=== PATIENT | female | born 1955 | race Caucasian/White ===

== ENCOUNTER 2024-08-17 10:04 | Emergency (ER) | payer BC, MEDICARE, SELFPAY ==
[2024-08-17] VITALS (16 sets, daily range): BP systolic 145–189; BP diastolic 67–120; PULSE 65–105; RESP 14–23; TEMP 36.4–37.2; O2SAT 74–100
--- NOTE | ~2024-08-17 | CT_ITS ---
Non-contrast Head CT History: Head injury Technique: Axial non-contrast imaging of the brain was performed. Dose reduction technique was used on this scan by utilizing automated exposure control and iterative reconstruction technique. The dose -length product (DLP) was 605.33 mGy-cm. Findings: There is acute parenchymal hemorrhage centered at the right thalamus/basal ganglia, with he matoma measuring 3.2 x 2.3 cm in transverse dimensions. There is additional acute intraventricular he morrhage involving the lateral ventricles, third ventricle, and fourth ventricle. No definite signifi cant midline shift evident. Mild prominence of the ventricular system suggests early reactive hydroce phalus. The calvarium appears normal. The visualized paranasal sinuses and mastoid air cells are polly ar. Impression: Acute intraparenchymal hematoma the right thalamus/basal ganglia with additional extensive acute intr aventricular hemorrhage, as detailed above. No definite midline shift. Probable early reactive hydrocephalus. Case discussed with Dr. Pompa at the time of this reading. Reviewed, dictated and finalized at location M. [employer] Impression: Acute intraparenchymal hematoma the right thalamus/basal ganglia with additiona l extensive acute intraventricular hemorrhage, as detailed above. No definite m idline shift. Probable early reactive hydrocephalus. Case discussed with Dr. Pompa at the time of this reading.
--- NOTE | ~2024-08-17 | XR_ITS ---
XR chest 1V portable INDICATION: Flu. Altered mental status. TECHNIQUE: 2 view chest. FINDINGS: No prior studies for comparison. There is mild bilateral interstitial prominence and peribronchial cuffing. There is no focal consoli dation, pleural effusion, or pneumothorax. The cardiomediastinal silhouette is normal. IMPRESSION: 1. Findings most consistent with bronchiolitis versus an atypical or viral pneumonia. Reviewed, dictated and finalized at location B. BER IMPRESSION: 1. Findings most consistent with bronchiolitis versus an atypical or viral pne [facility].
--- NOTE | 2024-08-17 10:06 | ECG_ITS ---
Test Date: 2024-08-17 10:23:25 Measurements Intervals [place] Rate: 65 P: 44 OK: 168 QRS: 26 QRSD: 98 T: 37 QT: 425 QTc: 444 Interpretive Statements SINUS RHYTHM MINIMAL Q WAVES- INFERIOR LEADS BORDERLINE ECG No previous ECG available for comparison Electronically Signed On 08-17-2024 10:27:13 DIRECTOR METABOLISM by Severiano Fragoso D.O.
[2024-08-17 10:35] LABS: Basophils Percent Auto 0.2 % (0.2-1.2); Eosinophils Percent Auto 0.1 % (0-4.4); Hematocrit 40.1 % (37.0-47.0); Immature Granulocyte Absolute 0.02 K/mm3 (0.00-0.031); Immature Granulocyte Percent A 0.2 % (0-0.5); Lymphocytes Absolute Auto 0.94 K/mm3 (0.9-3.2); Lymphocytes Percent Auto 10.2 % (18.3-44.2); Mean Corpuscular HGB Conc 32.4 g/dl (32-36); Mean Corpuscular Hemoglobin 29.3 pg (26-34); Mean Corpuscular Volume 90.5 fl (80-100); Mean Platelet Volume 9.2 fl (7.4-10.4); Monocytes Absolute Auto 0.5 K/mm3 (0.1-0.6); Monocytes Percent Auto 5.7 % (2.6-8.5); Neutrophils Absolute Auto 7.7 K/mm3 (1.3-6.7); Neutrophils Percent Auto 83.6 % (45.5-73.1); Platelet Count Result 315 k/mm3 (150-375); Red Blood Count 4.43 M/mm3 (4.2-5.4); Red Cell Distribution Width 12.4 % (11.5-14.5); White Blood Count 9.3 K/mm3 (4.5-10.0)
[2024-08-17 10:37] LABS: Add Urine Microscopic? NO; Appearance Urine Clear (Clear); Bilirubin Urine Negative (Negative); Blood Urine Negative (Negative); Color Urine Yellow (Yellow); Glucose Urine UA Negative (Negative); Ketones Urine Negative (Negative); Leukocyte Esterase Ur Negative LEU/UL (Negative); Nitrate Urine Negative (Negative); Protein Urine Negative (Negative); Specific Grav Ur 1.015 (1.001-1.035)
--- OUTSIDE RECORDS SUMMARY | 2024-08-17 10:37 | XMS_ITS | Encounter Summary ---
Author Organization [facility] Address [address] [place] [address] Care Team Providers Care Exercise Science Internship Name Role Phone Fani Cotton NP Primary Care Provider Crystal Bryant NP Primary Care Provider Unav ailable None, Provider Primary Care Provider Florentino Matthews MD Primary Care Provider [phone] Encounter Details Date Type Department Care Team (Late st Contact Info) Description 07/16/2019 ThemBid Message Enc [facility] [id number] [place] [address] Fani Cotton, BERNY RE: Test Results Social History Tobacco Use Types Packs/Day Years Used Date Smoking Tobacco: Never Smokeless Tobacco: Never Alcohol Use Standard Drinks/Week Comments No 0 (1 standard drink = 0.6 oz pur e alcohol) AUDIT-C Answer Date Recorded Frequency of Alcohol Consumption Never 05/18/2018 Average Number of Drinks Not on file 018 Frequency of Binge Drinking Not on file 04/29 Overall Financial Resource Strain (CARDIA) Answe r Date Recorded Difficulty of Paying Living Expenses Not hard at all 05/18/2018 Hunger Vital Sign Answer Date Recorded Worried About Running Out of Food in the Last Ye ar Never true 05/18/2018 Ran Out of Food in the Last Year Never true 05/18/2018 PRAPARE - Transportation Answer Date Re corded Lack of Transportation (Medical) No 05/18/2018 Lack of Transportation (Non-Medical) No 05/18/2018 Education Answer Date Recorded What is the highest level of school you have completed or the highest degree you have received? 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 Not on file Not on file Not on file documented as of this encounter Plan of Treatment Not on file documented as of this encounter Visit Diagnoses Not on filedocumented in this encounter Additional Health Concerns Infection Onset Date Last Indicated Resolved Time COVID-19 Rule Out 12/31/2023 12/31/2023 12/31/2023 11:43 AM CDT documented as of this encounter Care Teams Exercise Science Internship Relationship Specialty Start Date End Date Fani Cotton NP PCP - General NURSE PRACTITIONER 05/18/18 03/07/20 Crystal Shannon NP PCP - General NURSE PRACTITIONER 03/08/20 04/06/21 None, ProviderMD PCP - General 11/10/21 04/21/22 Florentino Hood MD PCP - General HOSPITALIST 04/22/22 documented as of this encounter
--- OUTSIDE RECORDS SUMMARY | 2024-08-17 10:37 | XMS_ITS | Clinical Summary ---
Author Organization [facility] Address [address] [place] [address] Care Team Providers Care Grades 1 Thru 6 Home Teacher Name Role Phone Kevon Gaytan MD Unavailable [phone] Anirudh Pena MD Unavailable [phone] Florentino Hood MD Primary Care Provider [phone] Allergies Active Allergy Reactions Criticality Noted Date Comments Amlodipine Swollen tongue High 07/20/2016 Codeine Nausea & Vomiting High 11/20/2008 Fentanyl Anaphylaxis,Shortne ss of breath High 02/22/2014 Pt coded Horseradish Swelling High 02/20/2014 Throat swelling Hydrocodone Other (See comments) Low 06/08/2018 Over sedation Hydromorphone Other (See comments) High 03/09/2014 Decreased breathing Isosorbide Headache Low 06/30/2017 Isosorbide Mononitrate Edema,Hypotension High 2016 Morphine Other (See comments) High 08/07/2013 Over sedation Opioids - Morphine Analogues Other (See comments) High Over sedation Oxycodone Other (See comments) Low 06/11/2016 Over sedation Prochlorperazine Angioedema High Propoxyphene Other (See comments) High 03/09/2014 Over sedation Medications cyanocobalamin (Vitamin B-12) 1,000 mcg sublingual tabletIndicatio ns:Prevention of Vitamin B12 Deficiency [address] 1 tablet (1,000 mcg total) under the tongue every morning 016 Active ergocalciferol (VITAMIN D) 50,000 unit capsule Take 1 capsule (50,000 Units total) by mouth once a week 30 capsule 021 Active levothyroxine (SYNTHROID) 300 mcg tabletIndicatio ns:hypothyroidi sm Take 1 tablet (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 022 Active vitamin D3-vitamin K2 25 mcg (1,000 unit)-90 mcg tablet,disinteg ratingIndicatio ns:Supplement Take 1 tablet by mouth every morning Active budesonide (Pulmicort) 0.5 mg/2 mL nebulizer solution Mix 1 capsule/ampule in 250 ml of saline irrigation (nina med sinus rinse) and irrigate each nostril with half of the bottle twice a day 120 mL 3 Active aspirin 81 mg enteric coated tabletIndicatio ns:Myocardial Reinfarction Prevention Take 1 tablet (81 mg total) by mouth nightly Active losartan (COZAAR) 100 mg tablet Take 0.5 tablets (50 mg total) by mouth daily 2024 Active Additional Information Patient taking differently: 100 mgoralEvery morning, Indications: hypertension, Informant: Self, Reported on 07/24/2024 metoprolol XL (TOPROL-XL) 25 mg extended release tablet Take 2 tablets (50 mg total) by mouth nightly 90 tablet 3 Active Additional Information Patient taking differently: 25 mgoral Nightly, Informant: Self, Reported on 07/24/2024 acetaminophen (TYLENOL) 500 mg tabletIndicatio ns:Back Pain,Pain Take 2 tablets (1,000 mg total) by mouth every 6 (six) hours as needed for pain Active ondansetron (ZOFRAN) 4 mg tabletIndicatio ns:Prevention of Post-Operative Nausea and Vomiting Take 1 tablet (4 mg total) by mouth every 8 (eight) hours as needed for nausea or vomiting for up to 10 doses 10 tablet Active Additional Information Patient not taking.Reported on 07/24/2024 senna (SENOKOT) 8.6 mg tabletIndicatio ns:constipation Take 1 tablet by mouth nightly as needed for constipation for up to 10 doses 10 tablet 024 Active Additional Information Patient not taking.Reported on 07/24/2024 torsemide (DEMADEX) 20 mg tablet Take 1 tablet (20 mg total) by mouth every other day 45 tablet 1 Active nitroglycerin (NITROSTAT) 0.4 mg SL tabletIndicatio ns:Chest pain, unspecified type Take 1 tablet (0.4 mg total) by mouth every 5 (five) minutes as needed for chest pain 25 tablet Active azithromycin (ZITHROMAX) 250 mg tablet Not yet started Active benzonatate (TESSALON) 200 mg capsule as needed Active methylPREDNISol one (MEDROL DOSEPACK) 4 mg Dosepack Not yet started Active evolocumab (Repatha SureClick) 140 mg/mL pen injector Inject 1 mL (140 mg total) under the skin every 2 (two) weeks 6 mL 3 025 Active evolocumab (Repatha SureClick) 140 mg/mL pen injector INJECT 1 ML SUBCUTANEOUSLY EVERY TWO WEEKS 6 mL 1 024 2024 Discontinued(R eorder) evolocumab (Repatha SureClick) 140 mg/mL pen injector Inject 6 mL (840 mg total) under the skin every 2 (two) weeks 6 mL 1 025 2024 Discontinued Active Problems Patient Care Coordination No te Formatting of this note migh t be different from the original. sinus Problem Noted Date Diagnosed Date Dizziness 07/24/2024 Renal mass, right 03/16/2024 Assessment & Plan (03/17/2024 8:26 AM CDT): -patient has had bilateral renal cysts that were being followed with imaging -recent MRI of the abdomen showed increasing size in the right renal complex cyst, there was concern for RCC, hence she was brought in for a cryoablation and biopsy by IR -patient tolerated procedure well, admitted for overnight observation -she is poorly tolerant to opiates, hence advised to use Tylenol/NSAIDs for pain control, could possibly use tramadol if these do not work - did not require any pain medication overnight CAD (coronary artery disease) 03/16/2024 Assessment & Plan (03/16/2024 3:38 PM CDT): -s/p PCI to LAD in 2017, noted to have 3 vessel CAD with patent LAD stent on last cath in 08/2022 -keep aspirin, plavix on hold given procedure -would ideally hold for atleast 5-7 days to reduce risk of retroperitoneal bleed post op -resumed metoprolol, losartan -continue to follow-up with Dr. Gaytan outpatient Deviated nasal septum 03/11/2023 Hypertrophy of nasal turbinates 03/11/2023 Nasal congestion 04/15/2022 Cellulitis of lower limb 12/31/2021 Dysuria 12/31/2021 Cough 07/28/2021 Arthrofibrosis of knee joint, left 06/16/2021 Overview (06/16/2021): Added automatically from request for surgery [id number] COVID-19 virus infection 05/23/2021 Prediabetes 05/01/2021 History of thyroidectomy 04/10/2021 Hypothyroidism 03/24/2021 Assessment & Plan (01/26/2024 7:25 PM CDT): Continue home synthroid Primary osteoarthritis of left knee 01/01/2021 Intestinal metaplasia of gastric mucosa 02/07/20 Overview (02/07/2020): Added automatically from request for surgery [id number] Acute upper respiratory infection 11/30/2019 COVID-19 virus infection 11/30/2019 Pre-operative cardiovascular examination 020 Overview (10/27/2019): Added automatically from request for surgery [id number] Sore throat 08/02/2019 Secondary hyperparathyroidism 02/24/2019 Epigastric discomfort 02/03/2019 Overview (02/03/2019): Added automatically from request for surgery [id number] Angiomyolipoma of right kidney 01/23/2019 Complex renal cyst 01/23/2019 Assessment & Plan (01/28/2024 11:22 AM CDT): Follows with Dr. Chowdary in nephrology, has complex renal cyst on left and concern for RCC on right--> was scheduled to get kidney ultrasound as an outpatient. Plan: - got ultrasound here. Unchanged from prior. Outpatient follow up Epigastric pain 01/19/2019 Overview (01/19/2019): Added automatically from request for surgery [id number] Early satiety 01/19/2019 Overview (01/19/2019): Added automatically from request for surgery [id number] History of colon polyps 01/19/2019 Overview (01/20/2019): Added automatically from request for surgery [id number] Abnormal CT scan, sigmoid colon 01/03/2019 Chronic fatigue 11/16/2018 Gastritis 11/16/2018 Shortness of breath 11/16/2018 Sinusitis 10/27/2018 Acute streptococcal pharyngitis 09/28/2018 Weight gain 09/28/2018 Nausea and vomiting 08/18/2018 Parasites in stool 08/18/2018 Coronary artery disease invo lving muscogee coronary artery of muscogee heart without angina pectoris 05/05/2018 Overview (05/05/2018): Added automatically from request for surgery [id number] Abnormal EKG 05/05/2018 Overview (05/05/2018): Added automatically from request for surgery [id number] HTN (hypertension), benign 04/30/2018 Assessment & Plan (03/16/2024 3:38 PM CDT): -resumed home dose of losartan and metoprolol Assessment & Plan (01/28/2024 11:21 AM CDT): HTNsive on admission, resuming home medications. States that she has been running low at home occasionally, thus losartan was decreased to 50 mg daily. Plan: -continue home losartan and increased metoprolol - outpatient BP monitoring Wrist pain, acute 03/30/2018 Atherosclerosis of coronary artery 05/02/2017 Angina pectoris 05/02/2017 Benign hypertension 04/25/2017 Bruit 04/20/2017 Angina pectoris 03/26/2017 Assessment & Plan (01/28/2024 11:21 AM CDT): Episodes of chest pain have some features consistent with unstable angina (substernal, occurs at rest, response to SL nitro, similar to prior episode of chest pain that required stenting), in the setting of known coronary artery disease. Also though with back and flank pain. Has had multiple left heart catheterizations in the past several years due to anginal symptoms, has not required stenting since 2018 per chart review. Previously has not tolerated amlodipine and Imdur for antianginal therapy. Also has an intolerance to statins (body aches). EKG without signs of acute coronary syndrome and troponins are negative. Plan: - negative troponin and non ischemic EKG -continue ASA/plavix -SL nitro PRN, if chest pain -continue home metop XL with increase per cardilology - no indication for inpatient cath per cardiology team but recommend follow up with Dr. Gaytan for evaluation - will complete workup with CT chest given some pleuritic nature to complaint and radiation to shoulder Obesity with body mass index 30 or greater 03/23 History of coronary artery stent placement 03/12 Pre-syncope 02/19/2017 Abnormal findings on cardiac catheterization Encounter for preventive health examination 01/26 Suspected sleep apnea 02/05/2017 Obstructive sleep apnea syndrome 01/22/2017 Dyspnea on exertion 01/22/2017 History of cardiac catheterization 01/22/2017 Hypokalemia 01/04/2017 Hypokalemia 12/23/2016 Jaw pain 06/18/2016 Cramps of lower extremity 06/18/2016 High risk medication use 06/18/2016 Coronary artery disease of n ative heart with stable angina pectoris 06/13/2016 Temporary cerebral vascular dysfunction 06/11/20 16 Mild cardiomegaly 04/23/2016 Dyslipidemia 01/19/2016 Obesity 01/19/2016 Chest pain 01/16/2016 Hypertensive heart disease with congestive heart failure 01/16/2016 Hypertension 12/24/2014 Insomnia 11/27/2014 Cervicalgia 10/11/2014 Elevated blood sugar level 09/10/2014 Hypocalcemia 08/29/2014 Cystocele 03/14/2014 Cervical spondylosis 02/22/2014 Fusion of spine of cervical region 02/22/2014 Hypothyroidism, unspecified 02/21/2014 Assessment & Plan (03/16/2024 3:35 PM CDT): -resume Synthroid Cervical disc herniation 02/19/2014 Cystocele without uterine prolapse 08/07/2013 Hyperlipidemia 08/07/2013 Vitamin D deficiency 08/07/2013 Resolved Problems Problem Noted Date Diagnosed Date Resolved Date Chest pain, unspecified type 01/26/2024 01/26/2024 Encounters Date Type Department Care Team Description 07/28/2024 7:45 AM MASTER CRAFTSMAN Ancillary Procedure [facility] [place] MRI [address] [place] [id number] Postconcussional syndrome 07/26/2024 Telephone [facility] Cardiology [address] [facility] [address] [place] [phone] Clara Plata CMA 07/26/2024 Telephone [facility] Cardiology On license of [facility] 8th [place] [address] [place] [address] Kevon Gaytan MD 07/25/2024 Telephone [place] [id number] [facility] [address] [place] [phone] Kevon Gaytan MD Repatha PA 07/24/2024 9:30 AM MASTER CRAFTSMAN Lab [address] [place] [address] Dizziness; Coronary artery disease of muscogee artery of muscogee heart with stable angina pectoris (HCC); Dyslipidemia 07/24/2024 9:00 AM MASTER CRAFTSMAN Ancillary Procedure [address] [place] [address] Dizziness 07/24/2024 8:30 AM MASTER CRAFTSMAN Office Visit [facility] Cardiology [address] [place] [address] [address] [place] [address] Azucena Emmanuel NP Dizziness (Primary Dx); Coronary artery disease of muscogee artery of muscogee heart with stable angina pectoris (HCC); Benign hypertension; Coronary artery disease involving muscogee heart, unspecified vessel or lesion type, unspecified whether angina present; Obstructive sleep apnea syndrome 07/24/2024 Orders Only [facility] Health Information Management [address] [place] [address] Scanning, Provider 07/18/2024 Telephone [facility] Cardiology [address] [facility] 8th [place] [address] [place] [address] Kevon Gaytan MD Test Results (Brain CT ) 07/11/2024 12:27 PM MASTER CRAFTSMAN - 07/11/2024 11:59 PM MASTER CRAFTSMAN Hospital Encounter [facility] Rad[facility] [address] [place] [address] Cervicalgia Discharge Disposition: Discharge to home or self care 07/10/2024 Telephone [facility] Cardiology [address] [facility] [address] [place] [address] Kevon Gaytan MD [facility] 07/10/2024 Orders Only [facility] Health Information Management [address] [place] [address] Scanning, Provider 07/06/2024 Orders Only [facility] Surgery [address] [place] [address] [place] [phone] Kurtis Garcia MD Renal mass, right (Primary Dx) 06/23/2024 Telephone [facility] Radiology [address] [place] [address] Letty Wooten, CAITLIN 06/19/2024 9:02 AM MASTER CRAFTSMAN - 06/19/2024 11:59 PM MASTER CRAFTSMAN Hospital Encounter [facility] Radiology at [address] [address] Clear cell renal cell carcinoma, right (HCC) Discharge Disposition: Discharge to home or self care 06/15/2024 Orders Only [facility] Health Information Management [address] [place] [address] Scanning, Provider 06/14/2024 Telephone [facility] Cardiology [address] [facility] 8th [place] [address] [place] [address] Kevon Gaytan MD Surgical Clearance (Dental Work) 06/05/2024 11:30 AM MASTER CRAFTSMAN Office Visit [facility] Cardiology [address] [facility] [address] [place] [address] Kevon Gaytan MD Dyslipidemia (Primary Dx); Chest pain, unspecified type; Coronary artery disease of muscogee artery of muscogee heart with stable angina pectoris (HCC) 06/05/2024 10:30 AM MASTER CRAFTSMAN Ancillary Procedure [facility] Cardiology [address] [facility] [address] [place] [address] Other chest pain; Hypertensive heart disease with congestive heart failure, unspecified heart failure type (HCC) 06/01/2024 Orders Only [facility] Radiology at [facility] [address] [place] [address] Concha Cade RN from Last 3 Months Immunizations Immunization Administration Dates Next Due Tdap 04/26/2019 Surgical History Surgery Date Site/Laterality Comments CHOLECYSTECTOMY 06/28/1984 - 06/27/1985 HYSTERECTOMY 06/28/1984 - 06/27/1985 THYROIDECTOMY 06/28/1998 - 06/27/[address] ENT PLACEMENT 03/04/2017 MADI mid LAD COLONOSCOPY 06/28/2021 - 06/27/[address] ENT PLACEMENT 06/08/2017 MDAI to RCA and diagonal vessel APPENDECTOMY 06/28/1967 - 06/27/1968 TOTAL KNEE ARTHROPLASTY 06/28/2014 - 06/27/2015 Right TOTAL KNEE ARTHROPLASTY 06/28/2020 - 06/27/2021 Left CARDIAC CATHETERIZATION 12/10/2021 POLYPECTOMY 06/28/2021 - 06/27/2022 CERVICAL FUSION 06/28/2014 - 06/27/2015 neck fusion SALPINGOOPHORECTOMY 06/28/2012 - 06/27/2013 Bilateral CRYOABLATION RENAL RIGHT 03/16/2024 Right Medical History Medical History Date Comments Coronary artery disease CHF (congestive heart failure) (CMS/HCC) (HCC) Myocardial infarction (HCC) Hypertension Diabetes mellitus (HCC) Thyroid disease Hyperlipidemia Hiatal hernia Chronic gastritis Osteoarthritis Covid-19 10/2019 Angiomyolipoma of kidney TIA (transient ischemic attack) Motion sickness car, boat COVID-19 virus infection 11/30/2019 Sleep apnea Nausea and vomiting 08/18/2018 Family History Medical History Relation Name Comments Coronary artery disease Father o Fami ly history of coronary artery disease - (Added by TW Conv) Hypertension Father o Family history of hypertension - (Added by TW Conv) Lung disease Father o Family history of lung disease - (Added by Conv) Stroke Father o Family history of stroke - (Added by Conv) Cancer Mother o Family history of cancer - (Added by TW Conv) Lung disease Mother o Family history of lung disease - (Added by TW Conv) Colon cancer Sister o Diabetes Sister o Family history of diabetes mellitus - (Added by Conv) Anesthesia problems Neg Hx Relation Name Status Comments Father o Mother o Sister o Social History Tobacco Use Types Packs/Day Years Used Date Smoking Tobacco: Never Passive Smoke Exposure: Current Smokeless Tobacco: Never Alcohol Use Standard Drinks/Week Comments No 0 (1 standard drink = 0.6 oz pur e alcohol) AUDIT-C Answer Date Recorded Q1: How often do you have a drink containing alcohol? Never 03/16/2024 Q2: How many drinks containi ng alcohol do you have on a typical day when you are drinking? Patient does not drink Q3: How often do you have si x or more drinks on one occasion? Never 03/16/2024 Personal Safety Answer Date Recorded Have you ever been in or are you currently in a harmful physical or emotional relationship or is someone making you feel afraid or unsafe? Denies 03/16/2024 Comments No Sex and Gender Information Value Date Recorded Sex Assigned at Not on file Legal Sex Female 12:18 AM MASTER CRAFTSMAN Gender Identity Not on file Sexual Orientation Not on file Occupation Industry Job Start Date Job End Date unemployed Not on file Not on file Not on file Obstetrics History Para Term AB IAB SAB Ectopic Multiple Livin g Live Births 4 3 Date Outcome GA Total Labor Labor/2nd/3rd Weight Sex Type Anes PTL Sherrie A1 A5 Name Clin Para Para Para Last Filed Vital Signs Vital Sign Reading Time Taken Comments Blood Pressure 168/81 07/24/2024 8:18 AM MASTER CRAFTSMAN Pulse 60 07/24/2024 8:18 AM MASTER CRAFTSMAN Temperature 36.1 C (97 F) 07/24/2024 8:18 AM MASTER CRAFTSMAN Respiratory Rate 16 03/16/2024 9:02 PM CDT Oxygen Saturation 97% 07/24/2024 8:18 AM MASTER CRAFTSMAN Inhaled Oxygen Concentration - - Weight 99.8 kg (220 lb) 07/24/2024 8:18 AM MASTER CRAFTSMAN Height 172.7 cm (5' 8 ) 07/24/2024 8:18 AM MASTER CRAFTSMAN Body Mass Index 33.45 07/24/2024 8:18 AM MASTER CRAFTSMAN Plan of Treatment Health Maintenance Due Date Last Done Comments Depression Screening 1955 Hepatitis C Screening 1955 Osteoporosis Screening-Bone Density Scan 1955 Hepatitis B Screening 11/16/1975 Pneumococcal vaccine 65+ (1 of 2 - PCV) 1976 Zoster Vaccine (1 of 2) 11/16/2007 Breast Cancer Screening-Mammogram 08/28/2014 014 Well Visit 65+ 2022 Influenza Vaccine (#1) 2024 Fall Risk Assessment 03/17/2025 03/17/2024, 06/25/20 DTaP/Tdap/Td Vaccine (2 - Td or Tdap) 04/26/2029 Colon Cancer Screening-Colonoscopy 04/01/20322021, 02/16/2019 Colon Cancer Screening-CT Colonography Discontinued , 02/16/2019 Colon Cancer Screening-DNA Stool Discontinued 04/01/20, 02/16/2019 Colon Cancer Screening-FIT Discontinued 04/01/2022, Colon Cancer Screening-Sigmoidoscopy Discontinued 10/2021, 02/16/2019 Goals Goal Patient Goal Type Associated Problems Recent Progress Patient-Stated? Author CCM Chronic Pain Care Plan Chronic Care Management No Katlyn Campa RN Note: Problem: Chronic Pain Goals: 1. Minimize further functional decline 2. Maximize quality of life 3. Control pain Strategies: - Activity/exercise program recommendation - Conservative stepwise pain medicine strategy with multi-disciplinary approach - Recommend healthy lifestyle strategies and compensatory methods as needed Reduce the likelihood of falling Lifestyle Katlyn Oquendo RN Note: Below are four things you can do to prevent falls: Begin an exercise program to improve your leg strength & balance Ask your doctor or pharmacist to review your medicines Get annual eye check-ups & update your eyeglasses Make your home safer by: Removing clutter & tripping hazards Putting railings on all stairs & adding grab bars in the bathroom Having good lighting, especially on stairs Contact your local community or senior center for information on exercise, fall prevention programs, or options for improving home safety. Medical Devices Implanted Type Area Principal Cyber Engineer Device Identifier Shelf Expiration Date Model / Serial / Lot Stent Implanted:Qty: 5 on 12/07/2012 Stent N/A: Coronary Artery Cervical Spine Ortho Hardware (Cage) Spine Cervical Rt Total Knee Arthroplasty- Implanted:11/07 (Quantity not on file) Right: Knee [employer] [id number] Attune Cemented Posterior Stabilize Knee Left 5 Component Femoral - [id number] Implanted:Qty: 1 on 05/07/2021 by Roney Saldaña MD at [facility] Left: Knee [employer] [id number] / / [employer] [id number] Attune S+ Cement Fix Bearing Knee 5 Baseplate Tibial - [id number] Implanted:Qty: 1 on 05/07/2021 by Roney Saldaña MD at [facility] Left: Knee [employer] [id number] / / [employer] 6197-9-010 Simplex P Full Dose Radiopaque Preblend Cement Bone Tobramycin - [id number] Implanted:Qty: 1 on 05/07/2021 by Roney Saldaña MD at [facility] Left: Knee [employer] [id number] / / [employer] [id number] Simplex P Full Dose Radiopaque Preblend Cement Bone Tobramycin - [id number] Implanted:Qty: 1 on 05/07/2021 by Roney Saldaña MD at [facility] Left: Knee [employer] [id number] / / [employer] [id number] Simplex P Full Dose Radiopaque Preblend Cement Bone Tobramycin - [id number] Implanted:Qty: 1 on 05/07/2021 by Roney Saldaña MD at [facility] Left: Knee [employer] [id number] / / [employer] [id number] Attune 6mm Posterior Stabilize Fix Bearing Knee 5 Insert Tibial - [id number] Implanted:Qty: 1 on 05/07/2021 by Roney Saldaña MD at [facility] Left: Knee [employer] [id number] / / Procedures Procedure Name Priority Date/Time Associated Diagnosis Comments MRI BRAIN W WO CONTRAST Schedule Routine, Read Routine (OP Routine) 07/28/2024 7:55 AM MASTER CRAFTSMAN Postconcussional syndrome EGFR Routine 07/24/2024 9:20 AM MASTER CRAFTSMAN Dizziness T4, FREE Routine 07/24/2024 9:20 AM MASTER CRAFTSMAN Dizziness DIFFERENTIAL AUTO Routine 07/24/2024 9:2 0 AM MASTER CRAFTSMAN Dizziness LIPID PANEL Routine 07/24/2024 9:20 AM MASTER CRAFTSMAN Coronary artery disease of muscogee artery of muscogee heart with stable angina pectoris (HCC) Dyslipidemia COMPREHENSIVE METABOLIC PANEL Routine 07/24/2024 9:20 AM MASTER CRAFTSMAN Dizziness CBC WITH AUTO DIFFERENTIAL Routine 07/24/2024 9:20 AM MASTER CRAFTSMAN Dizziness THYROID FUNCTION CASCADE Routine 07/24/2024 9:20 AM MASTER CRAFTSMAN Dizziness SCAN - OTHER ORDERS 07/24/2024 CT HEAD WO CONTRAST Schedule Routine, Read Routine (OP Routine) 07/11/2024 1:55 PM MASTER CRAFTSMAN Unspecified fall, initial encounter CT CERVICAL SPINE WO CONTRAST Schedule Routine, Read Routine (OP Routine) 07/11/2024 1:55 PM MASTER CRAFTSMAN Cervicalgia SCAN - OTHER ORDERS 07/10/2024 MRI ABDOMEN W WO CONTRAST Schedule Routine, Read Routine (OP Routine) 06/19/2024 9:52 AM MASTER CRAFTSMAN Clear cell renal cell carcinoma, right (HCC) SCAN - OTHER ORDERS 06/15/2024 ECG 12-LEAD Routine 06/05/2024 11:45 AM MASTER CRAFTSMAN Chest pain, unspecified type Coronary artery disease of muscogee artery of muscogee heart with stable angina pectoris (HCC) TRANSTHORACIC ECHO (TTE) COMPLETE W DOPPLER/CF W CONTRAST Routine 06/05/2024 11:09 AM MASTER CRAFTSMAN Other chest pain Hypertensive heart disease with congestive heart failure, unspecified heart failure type (HCC) COLONOSCOPY 04/01/2022 10:41 AM CDT from Last 3 Months or Most Recently Relevant to Health Maintenance Results * MRI Brain W WO Contrast (07/28/2024 7:55 AM MASTER CRAFTSMAN) Anatomical Region Laterality Modality Head and Neck N/A Magnetic Resonan ce 07/28/2024 9:41 AM MASTER CRAFTSMAN Impressions 07/28/2024 3:11 PM MASTER CRAFTSMAN 1. No acute intracranial abnormality. Dictated by: Thony Valadez M.D. The radiology attending physician has personally reviewed this study, and had reviewed and/or edited this written report and agrees with it. Electronically signed by: Prasanna Lopez MD, PHD Narrative 07/28/2024 3:11 PM MASTER CRAFTSMAN EXAMINATION: Magnetic resonance imaging (MRI) of the brain and brainstem without and with contrast HISTORY: 68 years-old Female with POSTCONCUSSIONAL SYNDROME. TECHNIQUE: Multiplanar multi-weighted MRI of the brain and brainstem was performed without and with intravenous contrast using the general brain protocol. Contrast information: 20 mL Gadoterate Meglumine COMPARISON: MRI Brain 12/17/2008. FINDINGS: The scalp and calvarium are normal. The superior sagittal sinus demonstrates normal venous flow. The corpus callosum is normal in shape and signal intensity. The posterior fossa is unremarkable. The pituitary and sella are normal. The brainstem and craniocervical junction are unremarkable. Diffusion weighted images reveal no hyperintensities to suggest acute cerebral infarction. Susceptibility weighted images demonstrate a small focus of hemosiderin deposition in the right frontal lobe near the frontoparietal junction (se 9 im 37) The ventricles are normal in size and position without evidence of hydrocephalus. Mild scattered T2 FLAIR white matter hyperintensities are most compatible with chronic small vessel disease. The paranasal sinuses are normal. The visualized portions of the mastoids are unremarkable. The orbits appear normal. 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 Procedure Note Prasanna Lopez MD PhD - 07/28/2024 EXAMINATION: Magnetic resonance imaging (MRI) of the brain and brainstem without and with contrast HISTORY: 68 years-old Female with POSTCONCUSSIONAL SYNDROME. TECHNIQUE: Multiplanar multi-weighted MRI of the brain and brainstem was performed without and with intravenous contrast using the general brain protocol. Contrast information: 20 mL Gadoterate Meglumine COMPARISON: MRI Brain 12/17/2008. FINDINGS: The scalp and calvarium are normal. The superior sagittal sinus demonstrates normal venous flow. The corpus callosum is normal in shape and signal intensity. The posterior fossa is unremarkable. The pituitary and sella are normal. The brainstem and craniocervical junction are unremarkable. Diffusion weighted images reveal no hyperintensities to suggest acute cerebral infarction. Susceptibility weighted images demonstrate a small focus of hemosiderin deposition in the right frontal lobe near the frontoparietal junction (se 9 im 37) The ventricles are normal in size and position without evidence of hydrocephalus. Mild scattered T2 FLAIR white matter hyperintensities are most compatible with chronic small vessel disease. The paranasal sinuses are normal. The visualized portions of the mastoids are unremarkable. The orbits appear normal. 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 IMPRESSION: 1. No acute intracranial abnormality. Dictated by: Thony Valadez M.D. The radiology attending physician has personally reviewed this study, and had reviewed and/or edited this written report and agrees with it. Electronically signed by: Prasanna Lopez MD, PHD [facility] Center[facility]orent[facility] Hood MD [facility] MRI PROCEDURES Final Result * eGFR (07/24/2024 9:20 AM MASTER CRAFTSMAN) eGFR 64 >=60 mL/min/1. 73 m2 Comment: Interpretive Data Reference Interval Normal >/= 90 mL/min/1.73m2 Mildly decreased* 60 - 89 mL/min/1.73m2 Mildly to moderately decreased 45 - 59 mL/min/1.73m2 Moderately to severely decreased 30 - 44 mL/min/1.73m2 Severely decreased 15 - 29 mL/min/1.73m2 Kidney Failure < 15 mL/min/1.73m2 *Relative to young adult level Estimated glomerular filtration rate is determined by the 2020 CKD-EPI equation recommended by the National Kidney [employer] (A Unifying Approach to GFR Estimation: Recommendations of the NKF-ASK Task Force on Reassessing the Inclusion of Race in Diagnosing Kidney Disease, JASN 202). The CKD-EPI equation should not be used for patients with unstable renal function and has not been validated in children and those over 70. Current interpretive data was last reviewed 2021. Blood 07/24/2024 9:20 AM MASTER CRAFTSMAN 07/24/2024 2:24 PM MASTER CRAFTSMAN us Notinfile Unknown LAB BLOOD ORDERABLES Final Res ult [facility] [place] [address] * Differential, auto (07/24/2024 9:20 AM MASTER CRAFTSMAN) Neutrophil abs 3.4 1.5 - 6.5 K/cumm Imm gran abs 0.0 0.0 - 0.1 K/cumm [facility] Lymphocyte abs 1.8 0.8 - 3.3 K/cumm [facility] Monocyte abs 0.4 0.2 - 0.8 K/cumm [facility] Eosinophil abs 0.1 0.0 - 0.5 K/cumm [facility] Basophil abs 0.1 0.0 - 0.1 K/cumm [facility] Neutrophil pct 57.6 % [facility] Comment: Interpretive Data Percent cell count reference ranges are not reported, since discordance with absolute values may lead to misinterpretation of CBC data. Current Interpretive Data was last revised on 2017. Imm gran pct 0.5 % [facility] Comment: Interpretive Data Percent cell count reference ranges are not reported, since discordance with absolute values may lead to misinterpretation of CBC data. Current Interpretive Data was last revised on 2017. Lymphocyte pct 31.1 % [facility] Comment: Interpretive Data Percent cell count reference ranges are not reported, since discordance with absolute values may lead to misinterpretation of CBC data. Current Interpretive Data was last revised on 2017. Monocyte pct 7.5 % [facility] Comment: Interpretive Data Percent cell count reference ranges are not reported, since discordance with absolute values may lead to misinterpretation of CBC data. Current Interpretive Data was last revised on 2017. Eosinophil pct 1.9 % [facility] Comment: Interpretive Data Percent cell count reference ranges are not reported, since discordance with absolute values may lead to misinterpretation of CBC data. Current Interpretive Data was last revised on 2017. Basophil pct 1.4 % [facility] Comment: Interpretive Data Percent cell count reference ranges are not reported, since discordance with absolute values may lead to misinterpretation of CBC data. Current Interpretive Data was last revised on 2017. Blood 07/24/2024 9:20 AM MASTER CRAFTSMAN 07/24/2024 11:33 AM MASTER CRAFTSMAN us Notinfile Unknown LAB BLOOD ORDERABLES Final Res ult [facility] [place] [address] * (ABNORMAL) Thyroid Function [place] (07/24/2024 9:20 AM MASTER CRAFTSMAN) TSH 37.30(H) 0.30 - 4.20 mcIUnit/mL Blood 07/24/2024 9:20 AM MASTER CRAFTSMAN 07/24/2024 2:14 PM MASTER CRAFTSMAN us Azucena Emmanuel LICENSED PHYSICAL THERAPIST LAB BLOOD ORDERABLES Final Re sult [facility] [place] [address] * (ABNORMAL) CBC with auto differential (07/24/2024 9:20 AM MASTER CRAFTSMAN) WBC 5.9 3.8 - 9.9 K/cumm Hgb 12.2 11.9 - 15.5 g/dL [facility] Hct 38.9 35.6 - 45.5 % [facility] Plt 280 150 - 400 K/cumm [facility] MPV 9.5 9.1 - 12.3 fL [facility] RBC 4.19 3.90 - 5.20 M/cumm [facility] MCV 92.8 81.3 - 96.4 fL [facility] MCH 29.1 27.1 - 33.3 pg [facility] MCHC 31.4(L) 32.3 - 35.7 g/dL [facility] RDW CV 13.5 11.1 - 14.9 % [facility] RDW SD 45.8 35.7 - 48.1 fL [facility] NRBC abs 0.00 0.00 - 0.01 K/cumm [facility] Blood 07/24/2024 9:20 AM MASTER CRAFTSMAN 07/24/2024 11:33 AM MASTER CRAFTSMAN us Azucena Emmanuel LICENSED PHYSICAL THERAPIST LAB BLOOD ORDERABLES Final Re sult Performing Organization Address City/[facility]/ZIP Co de Phone Number [facility] [place] [employer] [place] [address] * T4, free (07/24/2024 9:20 AM MASTER CRAFTSMAN) [facility] Free T4 1.67 0.90 - 1.70 ng/dL Blood 07/24/2024 9:20 AM MASTER CRAFTSMAN 07/24/2024 2:24 PM MASTER CRAFTSMAN Narrative [facility] - 07/24/2024 3:23 PM MASTER CRAFTSMAN This test was reflexed from a TSH result. us Notinfile Unknown LAB BLOOD ORDERABLES Final Res ult Performing Organization Address City/[facility]/ZIP Co de Phone Number [facility] [place] [employer] [place] [address] * Lipid panel (07/24/2024 9:20 AM MASTER CRAFTSMAN) Cholesterol 169 30 - 199 mg/dL Comment: Interpretive Data Ages < or = 19 years Acceptable: <170 mg/dL Borderline high: 170-199 mg/dL High: >or= 200 mg/dL Ages > or = 20 years Desirable: <200 mg/dL Borderline high: 200-239 mg/dL High: >or= 240 mg/dL Literature References: 1. Expert Panel on Integrated Guidelines for Cardiovascular Health and Risk Reduction in Children and Adolescents. Pediatrics 2011;128:S213 2. NCEP Expert Panel. Circulation 2004;110:227 Current Interpretive Data was last revised on 2018. Triglycerides 67 <=149 mg/dL [facility] Comment: Interpretive Data Ages < or = 9 years Acceptable: <75 mg/dL Borderline high: 75-99 mg/dL High: >or= 100 mg/dL Ages 10 to 20 years Acceptable: <90 mg/dL Borderline high: 90-129 mg/dL High: >or= 130 mg/dL Ages > or = 20 years Desirable: <150 mg/dL Borderline high: 150-199 mg/dL High: 200-499 mg/dL Very high: >or= 499 mg/dL Literature References: 1. Expert Panel on Integrated Guidelines for Cardiovascular Health and Risk Reduction in Children and Adolescents. Pediatrics 2011;128:S213 2. NCEP Expert Panel. Circulation 2004;110:227 Current Interpretive Data was last revised on 2018. HDL 75 >=40 mg/dL [facility] Comment: Interpretive Data Ages < or = 19 years Acceptable: >45 mg/dL Borderline low: 40-45 mg/dL Low: <40 mg/dL Ages > or = 20 years Desirable: >or= 60 mg/dL Low: <40 mg/dL Literature References: 1. Expert Panel on Integrated Guidelines for Cardiovascular Health and Risk Reduction in Children and Adolescents. Pediatrics 2011;128:S213 2. NCEP Expert Panel. Circulation 2004;110:227 Current Interpretive Data was last revised on 2018. LDL, calculated 81 <=129 mg/dL [facility] Comment: Interpretive Data Ages < or = 19 years Acceptable: <110 mg/dL Borderline high: 110-129 mg/dL High: >or= 130 mg/dL Ages > or = 20 years Optimal: <100 mg/dL Near optimal: 100-129 mg/dL Borderline high: 130-159 mg/dL High: >160 mg/dL Calculated using the Jeovany LDL-C estimating equation. This equation was implemented on 2024. Prior to this date LDL-C was estimated using the Friedewald equation. Literature References: 1. Expert Panel on Integrated Guidelines for Cardiovascular Health and Risk Reduction in Children and Adolescents. Pediatrics 2011;128:S213 2. NCEP Expert Panel. Circulation 2004;110:227 3. Jeovany Dsouza et al. ALBERTO Cardiol. 2020 October 26;5(5):540-548. doi: [email or web address] Current Interpretive Data was last revised on 2024. Non-HDL Cholesterol 94 mg/dL [facility] Comment: Interpretive Data Ages < or = 19 years Acceptable: <120 mg/dL Borderline high: 120-144 mg/dL High: >145 mg/dL Ages > or = 20 years When triglycerides are >200 mg/dL, Non-HDL cholesterol is a secondary target of therapy with treatment goals that are 30 mg/dL greater than the LDL cholesterol target. Literature References: 1. Expert Panel on Integrated Guidelines for Cardiovascular Health and Risk Reduction in Children and Adolescents. Pediatrics 2011;128:S213 2. NCEP Expert Panel. Circulation 2004;110:227 Current Interpretive Data was last revised on 2018. Chol/HDL ratio 2 [facility] Blood 07/24/2024 9:20 AM MASTER CRAFTSMAN 07/24/2024 2:14 PM MASTER CRAFTSMAN us Kevon Gaytan MD LAB BLOOD ORDERABLES Final Res ult [facility] Department [place] [address] * Comprehensive metabolic panel (07/24/2024 9:20 AM MASTER CRAFTSMAN) Sodium 141 135 - 145 mmol/L Potassium, pl 4.9 3.3 - 4.9 mmol/L [facility] Chloride 105 97 - 110 mmol/L [facility] CO2 31 22 - 32 mmol/L [facility] Anion gap 5 2 - 15 mmol/L [facility] BUN 17 6 - 25 mg/dL [facility] Creatinine 0.98 0.60 - 1.10 mg/dL [facility] Glucose 102 70 - 199 mg/dL [facility] Comment: Interpretive Data Fasting glucose >/= 126 mg/dl is diagnostic for diabetes. Fasting is defined as no caloric intake for at least 8 hours. Fasting glucose between 100 mg/dl to 125 mg/dl is diagnostic of prediabetes. In a patient with classic symptoms of hyperglycemia or hyperglycemic crisis, a random glucose >/= 200 mg/dl is diagnostic for diabetes. In the absence of unequivocal hyperglycemia, results should be confirmed by repeat testing. The classification and Diagnosis of Diabetes Diabetes Care 202; 46: S19-S40. Current interpretive data was last revised 2022. Calcium 9.5 8.5 - 10.3 mg/dL [facility] Bilirubin, total 0.6 0.1 - 1.2 mg/dL [facility] Protein, pl 7.3 6.5 - 8.5 g/dL [facility] Albumin 4.2 3.5 - 5.0 g/dL [facility] Alk phos 84 40 - 130 Units/L [facility] ALT 16 7 - 45 Units/L [facility] AST 28 10 - 45 Units/L [facility] Blood 07/24/2024 9:20 AM MASTER CRAFTSMAN 07/24/2024 2:14 PM MASTER CRAFTSMAN Azucena Emmanuel LICENSED PHYSICAL THERAPIST LAB BLOOD ORDERABLES Final Re sult [facility] Department [place] [address] * SCAN - OTHER ORDERS (07/24/2024) us Provider Scanning Final Result * CT Cervical Spine WO Contrast (07/11/2024 1:55 PM MASTER CRAFTSMAN) Anatomical Region Laterality Modality Spine N/A Computed Tomogra phy 07/11/2024 2:08 PM MASTER CRAFTSMAN Impressions 07/11/2024 2:08 PM MASTER CRAFTSMAN No acute intracranial abnormality. No evidence of acute fracture in the cervical spine. Electronically signed by: Nghia Torre MD Narrative 07/11/2024 2:08 PM MASTER CRAFTSMAN EXAMINATION: Noncontrast head CT CT of the cervical spine without contrast HISTORY: fall. TECHNIQUE: Noncontrast CT of the brain and cervical spine was performed with images acquired from skull base to vertex. COMPARISON: 03/10/2023, 06/22/2019 FINDINGS: HEAD: There is no acute intracranial hemorrhage. The ventricles are of normal size and morphology. No mass effect or midline shift is present. The calixto-white matter differentiation is normal. Periventricular white matter hypoattenuation may reflect underlying chronic small vessel ischemic changes. Carotid siphon and bilateral V4 segment atherosclerotic calcifications are noted. No acute calvarial fracture seen. Hyperostosis frontalis interna. The visualized portions of the orbits are normal. The visualized portions of the mastoids are normal. The visualized portions of the paranasal sinuses are normal. CERVICAL SPINE: Redemonstrated postoperative findings from C6-C7 anterior spinal fusion. Hardware appears intact without loosening. Straightening of the normal cervical lordosis. There is no acute fracture. Vertebral bodies are normal in height without compression fractures. The craniocervical junction is unremarkable. No soft tissue abnormality is identified. Advanced degenerative disc/facet/uncovertebral disease is present at C5-C6 with mild spinal canal stenosis and mild right/moderate left foraminal stenoses. Procedure Note Nghia Torre MD - 07/11/2024 EXAMINATION: Noncontrast head CT CT of the cervical spine without contrast HISTORY: fall. TECHNIQUE: Noncontrast CT of the brain and cervical spine was performed with images acquired from skull base to vertex. COMPARISON: 03/10/2023, 06/22/2019 FINDINGS: HEAD: There is no acute intracranial hemorrhage. The ventricles are of normal size and morphology. No mass effect or midline shift is present. The calixto-white matter differentiation is normal. Periventricular white matter hypoattenuation may reflect underlying chronic small vessel ischemic changes. Carotid siphon and bilateral V4 segment atherosclerotic calcifications are noted. No acute calvarial fracture seen. Hyperostosis frontalis interna. The visualized portions of the orbits are normal. The visualized portions of the mastoids are normal. The visualized portions of the paranasal sinuses are normal. CERVICAL SPINE: Redemonstrated postoperative findings from C6-C7 anterior spinal fusion. Hardware appears intact without loosening. Straightening of the normal cervical lordosis. There is no acute fracture. Vertebral bodies are normal in height without compression fractures. The craniocervical junction is unremarkable. No soft tissue abnormality is identified. Advanced degenerative disc/facet/uncovertebral disease is present at C5-C6 with mild spinal canal stenosis and mild right/moderate left foraminal stenoses. IMPRESSION: No acute intracranial abnormality. No evidence of acute fracture in the cervical spine. Electronically signed by: Nghia Torre MD Florentino Hood MD IM CT PROCEDURES Final Result * CT Head WO Contrast (07/11/2024 1:55 PM MASTER CRAFTSMAN) Anatomical Region Laterality Modality Head and Neck N/A Computed Tomogra phy 07/11/2024 2:08 PM MASTER CRAFTSMAN Impressions 07/11/2024 2:08 PM MASTER CRAFTSMAN No acute intracranial abnormality. No evidence of acute fracture in the cervical spine. Electronically signed by: Nghia Torre MD Narrative 07/11/2024 2:08 PM MASTER CRAFTSMAN EXAMINATION: Noncontrast head CT CT of the cervical spine without contrast HISTORY: fall. TECHNIQUE: Noncontrast CT of the brain and cervical spine was performed with images acquired from skull base to vertex. COMPARISON: 03/10/2023, 06/22/2019 FINDINGS: HEAD: There is no acute intracranial hemorrhage. The ventricles are of normal size and morphology. No mass effect or midline shift is present. The calixto-white matter differentiation is normal. Periventricular white matter hypoattenuation may reflect underlying chronic small vessel ischemic changes. Carotid siphon and bilateral V4 segment atherosclerotic calcifications are noted. No acute calvarial fracture seen. Hyperostosis frontalis interna. The visualized portions of the orbits are normal. The visualized portions of the mastoids are normal. The visualized portions of the paranasal sinuses are normal. CERVICAL SPINE: Redemonstrated postoperative findings from C6-C7 anterior spinal fusion. Hardware appears intact without loosening. Straightening of the normal cervical lordosis. There is no acute fracture. Vertebral bodies are normal in height without compression fractures. The craniocervical junction is unremarkable. No soft tissue abnormality is identified. Advanced degenerative disc/facet/uncovertebral disease is present at C5-C6 with mild spinal canal stenosis and mild right/moderate left foraminal stenoses. Procedure Note Nghia Torre MD - 07/11/2024 EXAMINATION: Noncontrast head CT CT of the cervical spine without contrast HISTORY: fall. TECHNIQUE: Noncontrast CT of the brain and cervical spine was performed with images acquired from skull base to vertex. COMPARISON: 03/10/2023, 06/22/2019 FINDINGS: HEAD: There is no acute intracranial hemorrhage. The ventricles are of normal size and morphology. No mass effect or midline shift is present. The calixto-white matter differentiation is normal. Periventricular white matter hypoattenuation may reflect underlying chronic small vessel ischemic changes. Carotid siphon and bilateral V4 segment atherosclerotic calcifications are noted. No acute calvarial fracture seen. Hyperostosis frontalis interna. The visualized portions of the orbits are normal. The visualized portions of the mastoids are normal. The visualized portions of the paranasal sinuses are normal. CERVICAL SPINE: Redemonstrated postoperative findings from C6-C7 anterior spinal fusion. Hardware appears intact without loosening. Straightening of the normal cervical lordosis. There is no acute fracture. Vertebral bodies are normal in height without compression fractures. The craniocervical junction is unremarkable. No soft tissue abnormality is identified. Advanced degenerative disc/facet/uncovertebral disease is present at C5-C6 with mild spinal canal stenosis and mild right/moderate left foraminal stenoses. IMPRESSION: No acute intracranial abnormality. No evidence of acute fracture in the cervical spine. Electronically signed by: Nghia Torre MD Florentino Hood MD IMG CT PROCEDURES Final Result * SCAN - OTHER ORDERS (07/10/2024) us Provider Scanning Final Result * MRI Abdomen W WO Contrast (06/19/2024 9:52 AM MASTER CRAFTSMAN) Anatomical Region Laterality Modality Body N/A Magnetic Resonan ce 06/19/2024 11:4 4 AM MASTER CRAFTSMAN Impressions 06/19/2024 2:20 PM MASTER CRAFTSMAN 1. Post-ablation changes within the inferior pole of the right kidney without evidence of local disease recurrence. 2. Unchanged cystic lesion within the inferior pole of the left kidney which is classified as Bosniak 3. Dictated by: Blayne Mercer MD The radiology attending physician has personally reviewed this study, and had reviewed and/or edited this written report and agrees with it. Electronically signed by: Erasmo Segal M.D. Narrative 06/19/2024 2:20 PM MASTER CRAFTSMAN EXAMINATION: MAGNETIC RESONANCE IMAGING OF THE ABDOMEN WITH AND WITHOUT CONTRAST HISTORY: Right renal cell carcinoma status post ablation 03/16/2024 TECHNIQUE: Magnetic resonance imaging of the abdomen was performed prior to and following the uneventful administration of intravenous Gadolinium contrast. Protocol: Kidney Contrast: gadoterate 18 mL COMPARISON: 02/11/2024 FINDINGS: Liver: No fat or iron deposition. No surface nodularity. - Bile ducts: Normal - Focal liver lesions: No suspicious lesion. - Vasculature: Portal and splenic veins are patent. Gallbladder: Cholecystectomy. Pancreas: Normal Spleen: Normal Adrenals: Normal Kidneys: Right: There are post-ablation changes within the inferior pole of the right kidney without suspicious nodularity or enhancement within the ablation cavity to suggest residual disease. Unchanged angiomyolipoma. Left: There is an unchanged multicystic lesion within the inferior pole of the left kidney measuring 2.1 cm (series 21, image 61) when measured in a similar fashion. There is internal thick septation measuring up to 6mm near the confluence of the septations best seen on coronal images. 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 Additional subcentimeter simple left renal cysts are also noted. Other Findings: Moderate hiatal hernia. No abdominal lymphadenopathy. No suspicious osseous lesions. Procedure Note Erasmo Segal MD - 06/19/2024 EXAMINATION: MAGNETIC RESONANCE IMAGING OF THE ABDOMEN WITH AND WITHOUT CONTRAST HISTORY: Right renal cell carcinoma status post ablation 03/16/2024 TECHNIQUE: Magnetic resonance imaging of the abdomen was performed prior to and following the uneventful administration of intravenous Gadolinium contrast. Protocol: Kidney Contrast: gadoterate 18 mL COMPARISON: 02/11/2024 FINDINGS: Liver: No fat or iron deposition. No surface nodularity. - Bile ducts: Normal - Focal liver lesions: No suspicious lesion. - Vasculature: Portal and splenic veins are patent. Gallbladder: Cholecystectomy. Pancreas: Normal Spleen: Normal Adrenals: Normal Kidneys: Right: There are post-ablation changes within the inferior pole of the right kidney without suspicious nodularity or enhancement within the ablation cavity to suggest residual disease. Unchanged angiomyolipoma. Left: There is an unchanged multicystic lesion within the inferior pole of the left kidney measuring 2.1 cm (series 21, image 61) when measured in a similar fashion. There is internal thick septation measuring up to 6mm near the confluence of the septations best seen on coronal images. 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 Additional subcentimeter simple left renal cysts are also noted. Other Findings: Moderate hiatal hernia. No abdominal lymphadenopathy. No suspicious osseous lesions. IMPRESSION: 1. Post-ablation changes within the inferior pole of the right kidney without evidence of local disease recurrence. 2. Unchanged cystic lesion within the inferior pole of the left kidney which is classified as Bosniak 3. Dictated by: Blayne Mercer MD The radiology attending physician has personally reviewed this study, and had reviewed and/or edited this written report and agrees with it. Electronically signed by: Erasmo Segal M.D. Kurtis Garcia MD IMG MRI PROCEDURES Final Result * SCAN - OTHER ORDERS (06/15/2024) us Provider Scanning Final Result * ECG 12 lead (06/05/2024 11:45 AM MASTER CRAFTSMAN) us Kevon Gaytan MD ECG ORDERABLES Edited Result - Final * TRANSTHORACIC ECHO (TTE) COMPLETE W DOPPLER/CF W CONTRAST (06/05/2024 11:09 AM MASTER CRAFTSMAN) LV EF 65 % CARDIOREPORT Anatomical Region Laterality Modality Ultrasound 06/05/2024 10:3 0 AM MASTER CRAFTSMAN Narrative 06/05/2024 7:54 PM MASTER CRAFTSMAN Patient name: Sarah Marques Date of test: 06/05/2024 Type of test: TTE w/Doppler Hospital #: [id number] Date of : 1955 (F) Plant Custodian: AURORA Murphy RDCS Referring Physician: AZUCENA EMMANUEL MD Contrast Agent: 1.1 ml Optison Administered, (1.9 ml wasted). Contrast Administered by: AURORA Murphy RDCS Supervised/Interpreted by: Kevon Gaytan MD Diagnosis: Location: [facility] Reason for test: CAD MV Structure: Normal, MV Motion: Normal, Mitral Annulus: Normal AV Structure: tricuspid and is Normal, AV Motion: Normal Aotic root: Normal, TM: Normal, PV: Normal Valvular Vegetations: none seen, Mass/Thrombi: none seen RA: Normal Measurements: M-Mode Normal Aotic Root: <3.8 LA: <3.8 RV: <2.8 LV(ED): <5.7 LV(ES): Variable 2D Linear Normal Aotic Root: 3.1 cm <3.6 Ao Indexed: 1.5 cm/M2 <2.0 LA: 4.0 cm <3.8 RV: 3.7 cm <4.2 LV(ED): 4.9 cm <5.3 LV(ES): 3.1 cm <3.5 2D Vol. Normal Indexed Indexed Normal RA: 38.0 ml 18.0 ml/M2 9-33 LA: 68.0 ml 32.3 ml/M2 16-34 RV: <11.6 LV(ED): 95.0 ml 46-106 45.1 ml/M2 <62 LV(ES): 33.0 ml 14-42 15.7 ml/M2 <25 3D Vol. Indexed Normal LV(ED): <62 LV(ES): <24 LV EF: 65 % (Normal: >=54%) LV Septum: 1.0 cm (Normal: <0.9 cm) Wall Motion Scoring (1=Normal 2=Hypo 3=Akinetic 4=Dyskin./Aneurysm 0=Not visualized) Parasternal Long [place]:MAS=1 BAS=1 MIL=1 RIAN=1 Parasternal Short [place]:MAS=1 MIS=1 MN=1 MIL=1 MAL=1 MA=1 Apical 4 Chambers:=1 MIS=1 BIS=1 BAL=1 MAL=1 AL=1 AC=1 Apical 2 Chambers:AI=1 MN=1 BI=1 BA=1 MA=1 AA=1 AC=1 LV Global Longitudinal Strain: -16.6% (Normal <-17%) RV Global Longitudinal Strain: LV Function: Normal LV Ejection Fraction, (EF=54-74%) RV Function: Normal Septal Motion: Normal Pericardial Effusion: none seen Atrial Septum: Normal DOPPLER/COLOR FLOW DOPPLER RESULTS: Diastolic Function: Normal Tricuspid Valve: normal TV Pulmonic Valve: normal PV AV Regurgitation: No AR seen AV Stenosis: no AV Area: cm2 AV Pressure Gradient (mmHg): Mean: 0, Peak:0 MV Regurgitation: No MR seen MV Stenosis: no MS MV Area: cm2 MV Pressure Gradient (mmHg): Mean: 0 MV ERO: cm Regurg. Vol.: ml/beat Regurg. Frac.: % PA Pressure: mmHg DOPPLER/COLOR FOLOW DOPPLER COMMENTS: No AR seen, No MR seen, no , no MS, normal TV, normal PV. Diastolic function: Normal CONTRAST: 1.1 ml Optison Administered, (1.9 ml wasted). SUMMARY: LA is normal. Normal RV cavity size. LV cavity size is normal. Normal LV wall thickness/mass. Normal Inferior vena cava. Normal aorta. No AR seen, No MR seen, no , no MS, normal TV, normal PV. Diastolic function: Normal. LVEF 65%Reduced global LV myocardial longitudinal function and strain pattern. Confirmed on 06/05/2024 - 19:54:05 by Kevon Gaytan MD By signing this report, the attending field attendant certifies that he or she has personally supervised and interpreted the echocardiogram and has reviewed and or edited and agrees with the written comments contained within the report. Procedure Note Kevon Gaytan MD - 06/05/2024 Patient name: Sarah Marques Date of test: 06/05/2024 Type of test: TTE w/Doppler [facility] #: 0 Date of : 1955 (F) Plant Custodian: AURORA Murphy RDCS Referring Physician: AZUCENA EMMANUEL MD Contrast Agent: 1.1 ml Optison Administered, (1.9 ml wasted). Contrast Administered by: AURORA Murphy RDCS Supervised/Interpreted by: Kevon Gaytan MD Diagnosis: Location: [facility] Reason for test: CAD MV Structure: Normal, MV Motion: Normal, Mitral Annulus: Normal AV Structure: tricuspid and is Normal, AV Motion: Normal Aotic root: Normal, TM: Normal, PV: Normal Valvular Vegetations: none seen, Mass/Thrombi: none seen RA: Normal Measurements: M-Mode Normal Aotic Root: <3.8 LA: <3.8 RV: <2.8 LV(ED): <5.7 LV(ES): Variable 2D Linear Normal Aotic Root: 3.1 cm <3.6 Ao Indexed: 1.5 cm/M2 <2.0 LA: 4.0 cm <3.8 RV: 3.7 cm <4.2 LV(ED): 4.9 cm <5.3 LV(ES): 3.1 cm <3.5 2D Vol. Normal Indexed Indexed Normal RA: 38.0 ml 18.0 ml/M2 9-33 LA: 68.0 ml 32.3 ml/M2 16-34 RV: <11.6 LV(ED): 95.0 ml 46-106 45.1 ml/M2 <62 LV(ES): 33.0 ml 14-42 15.7 ml/M2 <25 3D Vol. Indexed Normal LV(ED): <62 LV(ES): <24 LV EF: 65 % (Normal: >=54%) LV Septum: 1.0 cm (Normal: <0.9 cm) Wall Motion Scoring (1=Normal 2=Hypo 3=Akinetic 4=Dyskin./Aneurysm 0=Not visualized) Parasternal Long [place]:MAS=1 BAS=1 MIL=1 RIAN=1 Parasternal Short [place]:MAS=1 MIS=1 MN=1 MIL=1 MAL=1 MA=1 Apical 4 Chambers:=1 MIS=1 BIS=1 BAL=1 MAL=1 AL=1 AC=1 Apical 2 Chambers:AI=1 MN=1 BI=1 BA=1 MA=1 AA=1 AC=1 LV Global Longitudinal Strain: -16.6% (Normal <-17%) RV Global Longitudinal Strain: LV Function: Normal LV Ejection Fraction, (EF=54-74%) RV Function: Normal Septal Motion: Normal Pericardial Effusion: none seen Atrial Septum: Normal DOPPLER/COLOR FLOW DOPPLER RESULTS: Diastolic Function: Normal Tricuspid Valve: normal TV Pulmonic Valve: normal PV AV Regurgitation: No AR seen AV Stenosis: no AV Area: cm2 AV Pressure Gradient (mmHg): Mean: 0, Peak:0 MV Regurgitation: No MR seen MV Stenosis: no MS MV Area: cm2 MV Pressure Gradient (mmHg): Mean: 0 MV ERO: cm Regurg. Vol.: ml/beat Regurg. Frac.: % PA Pressure: mmHg DOPPLER/COLOR FOLOW DOPPLER COMMENTS: No AR seen, No MR seen, no , no MS, normal TV, normal PV. Diastolic function: Normal CONTRAST: 1.1 ml Optison Administered, (1.9 ml wasted). SUMMARY: LA is normal. Normal RV cavity size. LV cavity size is normal. Normal LV wall thickness/mass. Normal Inferior vena cava. Normal aorta. No AR seen, No MR seen, no , no MS, normal TV, normal PV. Diastolic function: Normal. LVEF 65%Reduced global LV myocardial longitudinal function and strain pattern. Confirmed on 06/05/2024 - 19:54:05 by Kevon Gaytan MD By signing this report, the attending field attendant certifies that he or she has personally supervised and interpreted the echocardiogram and has reviewed and or edited and agrees with the written comments contained within the report. us Azucena Emmanuel NP CV ECHO PROCEDURES Final Resu lt * COLONOSCOPY (04/01/2022 10:41 AM CDT) Anatomical Region Laterality Modality Other Narrative Procedure Note Mando Bonilla MD - 04/01/2022 10:41 AM CDT ENDOSCOPY LAB Patient Name: Sarah Marques Procedure Date: 04/01/2022 10:41 AM Date of : 1955 Admit Type: Outpatient Age: 66 Gender: Female Attending MD: Mando Bonilla M.D. Room: [facility] ENDOSCOPY ROOM 03 Note Status: Finalized Procedure: Colonoscopy Indications: High risk colon cancer surveillance: Personalhistory of colonic polyps, Last colonoscopy: January 2019 Providers: Mando Bonilla M.D. Referring MD: Oscar Hood M.D. Medicines: Monitored Anesthesia Care Complications: No immediate complications. Estimated Blood Loss: Estimated blood loss was minimal. Procedure: Pre-Anesthesia Assessment: - Prior to the procedure, a History and Physicalwas performed, and patient medications, allergies and sensitivities were reviewed. The patient'stolerance of previous anesthesia was reviewed. - The risks and benefits of the procedure and the sedation options and risks were discussed with the patient. All questions were answered and informed consent was obtained. - Immediately prior to administration ofmedications, the patient was re-assessed for adequacy to receive sedatives. The benefits, risks and alternatives of theprocedure and sedation were discussed and informed consentwas obtained. All questions were answered. Please referto the signed informed consent document in the medical record. The scope was passed under direct vision.The [id number] was introduced through the anusand advanced to the terminal ileum. The colonoscopy was performed without difficulty. The patient tolerated the procedure well. The quality of the bowel preparation was evaluated using the BBPS (BostonBowel Preparation Scale) with scores of: Right Colon = 2 (minor amount of residual staining, small fragmentsof stool and/or opaque liquid, but mucosa seen well), Transverse Colon = 3 (entire mucosa seen well withno residual staining, small fragments of stool oropaque liquid) and Left Colon = 3 (entire mucosa seen well with no residual staining, small fragments of stoolor opaque liquid). The total BBPS score equals 8. The quality of the bowel preparation was good. Findings: The terminal ileum appeared normal. A 2 mm polyp was found in the descending colon. The polyp wassessile. The polyp was removed with a cold biopsy forceps. Resection and retrieval were complete. A 6 mm polyp was found in the sigmoid colon. The polyp was sessile.The polyp was removed with a cold snare. Resection and retrieval were complete. Impression: - The examined portion of the ileum was normal. - One 2 mm polyp in the descending colon, removedwith a cold biopsy forceps. Resected and retrieved. - One 6 mm polyp in the sigmoid colon, removed witha cold snare. Resected and retrieved. Recommendation: - Await pathology results. - Repeat colonoscopy in 5 years for surveillance. - Resume Plavix (clopidogrel) at prior dosetomorrow. - Contact Information: During normal business hours - Please call theNurse Coordinator: [phone] After hours, evening, nights, weekends and holidays- Please call the hospital crozer operator at and ask for the GI fellow crayon grader. Attending Participation: I personally performed the entire procedure. Electronically signed by Mando Bonilla MD Mando Bonilla M.D. 04/01/2022 11:02:27 AM Number of Addenda: 0 Note Initiated On: 04/01/2022 10:41 AM Mando Bonilla MD ENDOSCOPY PROCEDURES Final Result from Last 3 Months or Most Recently Relevant to Health Maintenance Insurance sigmacare OOS MEDICARE [email or web address] ACCESS HEALTHLINK OPEN ACCESS Member Subscriber Plan / Payer (Ef fective 2019-Present) Name:Sarah Marques Relation to Subscriber:Self Name:Sarah Marques Payer ID:[id number] Group ID:[id number] Type:Transfluent HMO/PPO Address: [address] [place] [id number] BLUE ACCESS OOS [place] ACCESS OOS MEDICARE [employer] ACCESS OOS Advance Directives For more information, please contact: [phone] Documents on File Type Date Recorded Patient Chef De Cuisine Expl anation ADVANCE DIRECTIVE 01/14/2019 1:58 PM POWER OF OBIEE CONSULTANT-FINANCIAL/MEDICAL * Full Code (Latest Code Status on File) Date Activated Date Inactivated Comments 03/16/2024 12:18 PM 03/17/2024 1:51 PM * Full Code Date Activated Date Inactivated Comments 03/16/2024 7:53 AM 03/16/2024 12:18 PM * Full Code Date Activated Date Inactivated Comments 03/16/2024 6:31 AM 03/16/2024 7:53 AM * Full Code Date Activated Date Inactivated Comments 01/26/2024 4:53 PM 01/28/2024 6:33 PM * Full Code Date Activated Date Inactivated Comments 05/12/2023 10:25 AM 05/12/2023 5:20 PM Care Teams Grades 1 Thru 6 Home Teacher Relationship Specialty Start Date End Date Florentino Hood MD [address] [facility] [place] [address] PCP - General Family Medicine 08/09/23 Kevon Gaytan MD [address] [facility] [address] [place] [address] Consulting Physician Cardiology 04/04/21 Anirudh Pena MD [address] [place] [address] Referring Physician Otolaryngology 05/12/23
--- OUTSIDE RECORDS SUMMARY | 2024-08-17 10:37 | XMS_ITS | Encounter Summary ---
Author Organization [facility] Address [address] [place] [address] Care Team Providers Care Door To Door Lead Generation Name Role Phone Fani Cotton NP Primary Care Provider Crystal Bryant NP Primary Care Provider Unav ailable None, Provider Primary Care Provider Florentino Matthews MD Primary Care Provider [phone] Encounter Details Date Type Department Care Team (Late st Contact Info) Description 02/11/2019 [employer] Message Enc [facility] Medical Group Family & Internal Medicine [facility] [address] [place] [address] Fani Cotton, BERNY RE: Test [...] Sex Assigned at Female 05/18/2018 8:26 AM DATA CLERK Legal Sex Female 8:45 AM CDT Gender Identity Female 05/18/2018 8:26 AM DATA CLERK Sexual Orientation Straight 05/18/2018 8: 26 AM DATA CLERK 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 file Not on file Not on file documented as of this encounter Plan of Treatment Not on file documented as of this encounter Visit Diagnoses Not on filedocumented in this encounter Additional Health Concerns Infection Onset Date Last Indicated Resolved Time COVID-19 Rule Out 12/31/2023 12/31/2023 12/31/2023 11:43 AM CDT documented as of this encounter Care Teams Door To Door Lead Generation Relationship Specialty Start Date End Date Fani Cotton NP PCP - General NURSE PRACTITIONER 05/18/18 03/07/20 Crystal Shannon NP PCP - General NURSE PRACTITIONER 03/08/20 04/06/21 None, ProviderMD PCP - General 11/10/21 04/21/22 Florentino Hood MD PCP - General HOSPITALIST 04/22/22 documented as of this encounter
--- OUTSIDE RECORDS SUMMARY | 2024-08-17 10:37 | XMS_ITS | Encounter Summary ---
Author Organization [facility] Healthcare Address [address] [place] [address] Care Team Providers Care Slope Runner Name Role Phone Katlyn Jones MD Primary Care Provider [phone] Kevon Gaytan MD Unavailable [phone] Oscar Hood MD Primary Care Provider [phone] Anirudh Pena MD Unavailable [phone] Florentino Hood MD Primary Care Provider [phone] Encounter Details Date Type Department Care Team (Late st Contact Info) Description 03/25/2020 Telephone [facility] [address] [place] [address] Thai Nixon, RT Social History Tobacco Use Types Packs/Day Years Used Date Smoking Tobacco: Never Smokeless Tobacco: Never Alcohol Use Standard Drinks/Week Comments No 0 (1 standard drink = 0.6 oz pur e alcohol) Comments No Sex and Gender Information Value Date Recorded Sex Assigned at Not on file Legal Sex Female 12:18 AM CHANNEL MARKETING PROGRAM MANAGER Gender Identity Not on file Sexual Orientation Not on file documented as of this encounter Plan of Treatment Not on file documented as of this encounter Visit Diagnoses Not on filedocumented in this encounter Additional Health Concerns Infection Onset Date Last Indicated Resolved Time COVID: Suspected 04/19/2022 04/19/2022 04/19/2022 1:18 PM CDT RSV, droplet 04/19/2022 04/19/2022 04/26/2022 3:05 AM CDT COVID: Suspected 08/27/2022 08/27/2022 08/27/2022 7:54 PM CHANNEL MARKETING PROGRAM MANAGER COVID: Suspected 07/26/2023 07/26/2023 07/26/2023 6:45 PM CHANNEL MARKETING PROGRAM MANAGER documented as of this encounter Care Teams Slope Runner Relationship Specialty [place] [address] [facility] [address] [place] [address] PCP - General Internal Medicine 04/29/18 05/15/21 Oscar Hood MD [address] [place] [address] PCP - General 05/16/21 08/08/23 Florentino Hood MD [address] [facility] [place] [address] PCP - General Family Medicine 08/09/23 Kevon Gaytan MD [address] [facility] [address] [place] [address] Consulting Physician Cardiology 04/04/21 Anirudh Pena MD [address] [place] [address] Referring Physician Otolaryngology 05/12/23 documented as of this encounter
--- OUTSIDE RECORDS SUMMARY | 2024-08-17 10:37 | XMS_ITS | Encounter Summary ---
Author Organization [facility] Address [address] [place] [address] Care Team Providers Care Lumber Planer Name Role Phone Fani Cotton NP Primary Care Provider Crystal Bryant NP Primary Care Provider Unav ailable None, Provider Primary Care Provider Florentino Matthews MD Primary Care Provider [phone] Encounter Details Date Type Department Care Team (Late st Contact Info) Description 02/13/2019 [employer] Message Enc [facility] Medical Group Family & Internal Medicine [facility] [address] [place] [address] Fani Cotton, BERNY RE: Test [...] Sex Assigned at Female 05/18/2018 8:26 AM WEB OPERATIONS SPECIALIST Legal Sex Female 8:45 AM CDT Gender Identity Female 05/18/2018 8:26 AM WEB OPERATIONS SPECIALIST Sexual Orientation Straight 05/18/2018 8: 26 AM WEB OPERATIONS SPECIALIST 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 Not on file Not on file Not on file documented as of this encounter Plan of Treatment Not on file documented as of this encounter Visit Diagnoses Not on filedocumented in this encounter Additional Health Concerns Infection Onset Date Last Indicated Resolved Time COVID-19 Rule Out 12/31/2023 12/31/2023 12/31/2023 11:43 AM CDT documented as of this encounter Care Teams Lumber Planer Relationship Specialty Start Date End Date Fani Cotton NP PCP - General NURSE PRACTITIONER 05/18/18 03/07/20 Crystal Shannon NP PCP - General NURSE PRACTITIONER 03/08/20 04/06/21 None, ProviderMD PCP - General 11/10/21 04/21/22 Florentino Hood MD PCP - General HOSPITALIST 04/22/22 documented as of this encounter
--- OUTSIDE RECORDS SUMMARY | 2024-08-17 10:37 | XMS_ITS | Encounter Summary ---
Author Organization [facility] Address [address] [place] [address] Care Team Providers Care Flight Steward Name Role Phone Fani Cotton RESIDENTIAL LIFE DIRECTOR Primary Care Provider Crystal Bryant RESIDENTIAL LIFE DIRECTOR Primary Care Provider Unav ailable None, Provider Primary Care Provider Florentino Matthews MD Primary Care Provider [phone] Encounter Details Date Type Department Care Team (Late st Contact Info) Description 09/28/2018 Abstract [facility] CONVERSION [address] [place] [address] , Generic Conversion, Social History Tobacco Use Types Packs/Day Years [...] Sex Assigned at Female 05/18/2018 8:26 AM JACKHAMMER SPLITTER OPERATOR Legal Sex Female 8:45 AM CDT Gender Identity Female 05/18/2018 8:26 AM JACKHAMMER SPLITTER OPERATOR Sexual Orientation Straight 05/18/2018 8: 26 AM JACKHAMMER SPLITTER OPERATOR 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 file Not on file Not on file documented as of this encounter Plan of Treatment Not on file documented as of this encounter Visit Diagnoses Not on filedocumented in this encounter Additional Health Concerns Infection Onset Date Last Indicated Resolved Time COVID-19 Rule Out 12/31/2023 12/31/2023 12/31/2023 11:43 AM CDT documented as of this encounter Care Teams Flight Steward Relationship Specialty Start Date End Date Fani Cotton NP PCP - General NURSE PRACTITIONER 05/18/18 03/07/20 Crystal Shannon NP PCP - General NURSE PRACTITIONER 03/08/20 04/06/21 None, MD Tiffani PCP - General 11/10/21 04/21/22 Florentino Hood MD PCP - General HOSPITALIST 04/22/22 documented as of this encounter
--- OUTSIDE RECORDS SUMMARY | 2024-08-17 10:37 | XMS_ITS | Referral Summary ---
Author Organization [facility] Address [address] [place] [address] Care Team Providers Care Pipe Puller Name Role Phone Katlyn Jones MD Primary Care Provider + [phone] Azucena Peres RN Unavailable [phone] Source Comments [facility],non-owned Affiliates and Associated Physician Practices is amultiple site organization consisting of ambulatory clinics and hospital sitesin [place], [place], [place] and [place]. This disclosure is being madepursuant to the Care Everywhere program and may not contain all information available regarding this patient. Last updated 18.[facility] Allergies Active Allergy Reactions Criticality Noted Date Comments Codeine Shortness of Breath,Nausea and/or Vomiting High 03/09/2014 Propoxyphene N-Apap Shortness of Breath High 014 Hydromorphone 03/09/2014 Decreased breathing Fentanyl 03/09/2014 Pt coded Morphine Shortness of Breath High 03/09/2014 Medications * Be aware that medications may not be up to date on this document. Alwaysverify current medications with the patient. Medication Sig Dispensed Refills Start Date End Date Status levothyroxine (SYNTHROID) 150 MCG tablet Take 150 mcg by mouth daily before breakfast. Active docusate sodium (COLACE) 100 MG capsule Take 1 Cap by mouth 2 times daily. 60 Cap 5 03/15/2014 Active ibuprofen (MOTRIN) 600 MG tablet Take 1 Tab by mouth every 6 hours as needed for Pain. 30 Tab 2 03/15/2014 Active Active Problems Problem Noted Date Diagnosed Date Cystocele 03/14/2014 Social History Tobacco Use Types Packs/Day Years Used Date Smoking Tobacco: Never Smokeless Tobacco: Never Alcohol Use Standard Drinks/Week Comments No 0 (1 standard drink = 0.6 oz pur e alcohol) Sex and Gender Information Value Date Recorded Sex Assigned at Not on file Gender Identity Not on file Sexual Orientation Not on file Last Filed Vital Signs Vital Sign Reading Time Taken Comments Blood Pressure 172/96 05/04/2014 1:10 PM [facility]NER Pulse 65 03/15/2014 8:02 AM CDT Temperature 36.9 C (98.4 F) 03/15/2014 8:02 AM CDT Respiratory Rate 17 03/15/2014 8:02 AM CDT Oxygen Saturation 100% 03/15/2014 8:02 AM CDT Inhaled Oxygen Concentration - - Weight 108 kg (238 lb) 05/04/2014 1:10 PM [facility]NER Height 172.7 cm (5' 8 ) 05/04/2014 1:10 PM [facility]NER Body Mass Index 36.19 05/04/2014 1:10 PM [facility]NER Functional Status Functional Status Response Date of Assess ment Is person deaf or have serious hearing difficult y? No 03/14/2014 Is person blind or have serious difficulty seein g? No 03/14/2014 Does person have serious dif ficulty walking/climbing stairs? No 03/14/2014 Does person have difficulty dressing/bathing? No 03/14/2014 Does person have difficulty doing errands alone? No 03/14/2014 Cognitive Status Response Date of Assessm ent Does person have difficulty concentrating/remembering/making decisions? No 03/14/2014 Plan of Treatment Not on file Medical Devices Implanted Type Area Occupational Health Nurse Supervisor Device Identifier Shelf Expiration Date Model / Serial / Lot Grft Tiss Rep Xenform 4 X 7cm Implanted:Qty: 1 on 03/14/2014 by Anirudh Payton MD at [facility] [employer] 03/27/2016 [id number] / / [id number] Advance Directives * Full Code (Latest Code Status on File) Date Activated Date Inactivated Comments 03/14/2014 5:19 PM 03/15/2014 12:59 PM Care Teams Pipe Puller Relationship Specialty Start Date End Date Katlyn Jones MD PCP - General Internal Medicine 03/09/14 Azucena Peres, RN [employer]house Supervisor 03/15/14
--- OUTSIDE RECORDS SUMMARY | 2024-08-17 10:37 | XMS_ITS | Referral Summary ---
Author Organization [facility] Address [address] [place] [address] Care Team Providers Care Welding Machine Assembler Name Role Phone Kevon Gaytan MD Unavailable [phone] Anirudh Pena MD Unavailable [phone] Florentino Hood MD Primary Care Provider [phone] Encounters Date Type Department Care Team Description 07/28/2024 7:45 AM UNATTENDED GROUND SENSOR SPECIALIST Ancillary Procedure [facility] Mobile MRI [address] [place] [address] Postconcussional syndrome 07/26/2024 Telephone [facility] Cardiology [address] [facility] [address] [place] [id number] Clara Plata CMA 07/26/2024 Telephone [facility] [address] [facility] Advanced Medicine 8th [place] [address] [place] [address] Kevon Gaytan MD 07/25/2024 Telephone [facility] [address] [facility] Medical [address] [place] [address] Kevon Gaytan MD Repatha PA 07/24/2024 Orders Only [facility] Health Information Management [address] [place] [address] Scanning, Provider 07/24/2024 9:30 AM UNATTENDED GROUND SENSOR SPECIALIST Lab [facility] Advanced Medicine - [facility] [address] [place] [address] [address] [place] [address] Dizziness; 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); Dyslipidemia 07/24/2024 9:00 AM UNATTENDED GROUND SENSOR SPECIALIST Ancillary Procedure [facility] Cardiology [address] [facility] [address] [place] [address] Dizziness 07/24/2024 8:30 AM UNATTENDED GROUND SENSOR SPECIALIST Office Visit [facility] [address] [facility] [address] [place] [address] Azucena Emmanuel NP Dizziness (Primary Dx); 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 Advanced Medicine 8th [place] [address] [place] [address] Kevon Gaytan MD Test Results (Brain CT ) 07/11/2024 12:27 PM UNATTENDED GROUND SENSOR SPECIALIST - 07/11/2024 11:59 PM UNATTENDED GROUND SENSOR SPECIALIST Hospital Encounter [facility] [address] [place] [address] Cervicalgia Discharge Disposition: Discharge to home or self care 07/10/2024 Telephone [facility] [address] [facility] [address] [facility] [place] [address] Kevon Gaytan MD Reprosalba PA 07/10/2024 Orders Only [facility] Health Information Management [address] [place] [address] Scanning, Provider 07/06/2024 Orders Only [facility] Surgery [address] [place] [address] [address] [place] [address] Kurtis Garcia MD Renal mass, right (Primary Dx) 06/23/2024 Telephone [facility] Radiology [address] [place] [address] Letty Wooten RN 06/19/2024 9:02 AM UNATTENDED GROUND SENSOR SPECIALIST - 06/19/2024 11:59 PM UNATTENDED GROUND SENSOR SPECIALIST Hospital Encounter [facility] Radiology at [facility] [address] [place] [address] Clear cell renal cell carcinoma, right (HCC) Discharge Disposition: Discharge to home or self care 06/15/2024 Orders Only [facility] Health Information Management [address] [place] [address] Scanning, Provider 06/14/2024 Telephone [facility] Pending sale to [facility] 8th [place] [address] [place] [address] Kevon Gaytan MD Surgical Clearance (Dental Work) 06/05/2024 10:30 AM UNATTENDED GROUND SENSOR SPECIALIST Ancillary Procedure [facility] [address] [facility] [address] [place] [address] Other chest pain; Hypertensive heart disease with congestive heart failure, unspecified heart failure type (HCC) 06/05/2024 11:30 AM UNATTENDED GROUND SENSOR SPECIALIST Office Visit [facility] Cardiology [address] [facility] [address] [place] [address] Kevon Gaytan MD Dyslipidemia (Primary Dx); Chest pain, unspecified type; 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) 06/01/2024 Orders Only [facility] Radiology at [facility] [address] [place] [address] Concha Cade, CAITLIN from Last 3 Months Allergies Active Allergy Reactions Criticality Noted Date [...] 1 tablet (300 mcg total) by mouth credentialing coordinator before breakfast 022 Active vitamin D3-vitamin K2 25 mcg (1,000 unit)-90 mcg tablet,disinteg ratingIndicatio ns:Supplement Take 1 tablet by mouth every morning Active budesonide (Pulmicort) 0.5 mg/2 mL nebulizer solution Mix 1 capsule/ampule in 250 ml of saline irrigation (nina med sinus rinse) and irrigate each nostril with half of the bottle twice a day 120 mL 3 024 Active aspirin 81 mg enteric coated tabletIndicatio ns:Myocardial Reinfarction Prevention Take 1 tablet (81 mg total) by mouth nightly Active losartan (COZAAR) 100 mg tablet Take 0.5 tablets (50 mg total) by mouth daily 024 2024 Active Additional Information Patient taking differently: 100 mgoralEvery morning, Indications: hypertension, Informant: Self, Reported on 07/24/2024 metoprolol XL (TOPROL-XL) 25 mg extended release tablet Take 2 tablets (50 mg total) by mouth nightly 90 tablet 3 024 Active Additional Information Patient taking differently: 25 [...] (06/16/2021): Added automatically from request for surgery [id number] COVID-19 virus infection 05/23/2021 Prediabetes 05/01/2021 History of thyroidectomy 04/10/2021 Hypothyroidism 03/24/2021 Assessment & Plan (01/26/2024 7:25 PM CDT): Continue home synthroid Primary osteoarthritis of left knee 01/01/2021 Intestinal metaplasia of gastric mucosa 02/07/20 20 Overview (02/07/2020): Added automatically from request for surgery [id number] Acute upper respiratory infection 11/30/2019 COVID-19 virus infection 11/30/2019 Pre-operative cardiovascular examination 020 Overview (10/27/2019): Added automatically from request for surgery [id number] Sore throat 08/02/2019 Secondary hyperparathyroidism 02/24/2019 Epigastric discomfort 02/03/2019 Overview (02/03/2019): Added automatically from request for surgery [id number] Angiomyolipoma of right kidney 01/23/2019 Complex renal [...] (01/19/2019): Added automatically from request for surgery [id number] Early satiety 01/19/2019 Overview (01/19/2019): Added automatically from request for surgery [id number] History of colon polyps 01/19/2019 Overview (01/20/2019): Added automatically from request for surgery [id number] Abnormal CT scan, sigmoid colon 01/03/2019 Chronic fatigue 11/16/2018 Gastritis 11/16/2018 Shortness of breath 11/16/2018 Sinusitis 10/27/2018 Acute streptococcal pharyngitis 09/28/2018 Weight gain 09/28/2018 Nausea and vomiting 08/18/2018 Parasites in stool 08/18/2018 Coronary artery disease invo lving tunica-biloxi coronary artery of tunica-biloxi heart without angina pectoris 05/05/2018 Overview (05/05/2018): Added automatically from request for surgery [id number] Abnormal EKG 05/05/2018 Overview (05/05/2018): Added automatically from request for surgery [id number] HTN (hypertension), benign 04/30/2018 Assessment & Plan [...] Date Chest pain, unspecified type 01/26/2024 01/26/2024 Immunizations Immunization Administration Dates Next Due Tdap 04/26/2019 Social History Tobacco Use Types Packs/Day Years [...] on file Legal Sex Female 12:18 AM UNATTENDED GROUND SENSOR SPECIALIST Gender Identity Not on file Sexual Orientation Not on file Occupation Industry Job Start Date Job End Date unemployed Not on file Not on file Not on file Last Filed Vital Signs Vital Sign Reading Time Taken Comments Blood Pressure 168/81 07/24/2024 8:18 AM UNATTENDED GROUND SENSOR SPECIALIST Pulse 60 07/24/2024 8:18 AM UNATTENDED GROUND SENSOR SPECIALIST Temperature 36.1 C (97 F) 07/24/2024 8:18 AM UNATTENDED GROUND SENSOR SPECIALIST Respiratory Rate 16 03/16/2024 9:02 PM CDT Oxygen Saturation 97% 07/24/2024 8:18 AM UNATTENDED GROUND SENSOR SPECIALIST Inhaled Oxygen Concentration - - Weight 99.8 kg (220 lb) 07/24/2024 8:18 AM UNATTENDED GROUND SENSOR SPECIALIST Height 172.7 cm (5' 8 ) 07/24/2024 8:18 AM UNATTENDED GROUND SENSOR SPECIALIST Body Mass Index 33.45 07/24/2024 8:18 AM UNATTENDED GROUND SENSOR SPECIALIST Plan of Treatment Not on file Goals Goal Patient Goal Type Associated Problems [...] stairs Contact your local community or senior [place] for information on exercise, fall prevention programs, or options for improving home safety. Medical Devices Implanted Type Area Sales Development Specialist Device Identifier Shelf Expiration Date Model / Serial / Lot Stent Implanted:Qty: 5 on 12/07/2012 Stent N/A: Coronary Artery Cervical Spine Ortho Hardware (Cage) Spine Cervical Rt Total Knee Arthroplasty- Implanted:11/07 (Quantity not on file) Right: Knee [employer] [id number] Attune Cemented Posterior Stabilize Knee Left 5 Component Femoral - [id number] Implanted:Qty: 1 on 05/07/2021 by Roney Saldaña MD at [facility] Left: Knee [employer] [id number] / / [employer] [id number] Attune S+ Cement Fix Bearing Knee 5 Baseplate Tibial - [id number] Implanted:Qty: 1 on 05/07/2021 by Roney Saldaña MD at [facility] Left: Knee [employer] [id number] / / [employer] [id number] Simplex P Full Dose Radiopaque Preblend Cement Bone Tobramycin - [id number] Implanted:Qty: 1 on 05/07/2021 by Roney Saldaña MD at [facility] Left: Knee [employer] [id number] / / [employer] Simplex P Full Dose Radiopaque Preblend Cement Bone Tobramycin - [id number] Implanted:Qty: 1 on 05/07/2021 by Roney Saldaña MD at [facility] Left: Knee [employer] 61 / / [employer] Simplex P Full Dose Radiopaque Preblend Cement Bone Tobramycin - [id number] Implanted:Qty: 1 on 05/07/2021 by Roney Saldaña MD at [facility] Left: Knee [employer] [id number] / / [employer] [id number] Attune 6mm Posterior Stabilize Fix Bearing Knee 5 Insert Tibial - [id number] Implanted:Qty: 1 on 05/07/2021 by Roney Saldaña MD at [facility] Left: Knee [employer] [id number] / / Procedures Procedure Name Priority Date/Time Associated Diagnosis Comments MRI BRAIN W WO CONTRAST Schedule Routine, Read Routine (OP Routine) 07/28/2024 7:55 AM UNATTENDED GROUND SENSOR SPECIALIST Postconcussional syndrome EGFR Routine 07/24/2024 9:20 AM UNATTENDED GROUND SENSOR SPECIALIST Dizziness T4, FREE Routine 07/24/2024 9:20 AM UNATTENDED GROUND SENSOR SPECIALIST Dizziness DIFFERENTIAL AUTO Routine 07/24/2024 9:2 0 AM UNATTENDED GROUND SENSOR SPECIALIST Dizziness LIPID PANEL Routine 07/24/2024 9:20 AM UNATTENDED GROUND SENSOR SPECIALIST 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) Dyslipidemia COMPREHENSIVE METABOLIC PANEL Routine 07/24/2024 9:20 AM UNATTENDED GROUND SENSOR SPECIALIST Dizziness CBC WITH AUTO DIFFERENTIAL Routine 07/24/2024 9:20 AM UNATTENDED GROUND SENSOR SPECIALIST Dizziness THYROID FUNCTION CASCADE Routine 07/24/2024 9:20 AM UNATTENDED GROUND SENSOR SPECIALIST Dizziness SCAN - OTHER ORDERS 07/24/2024 CT HEAD WO CONTRAST Schedule Routine, Read Routine (OP Routine) 07/11/2024 1:55 PM UNATTENDED GROUND SENSOR SPECIALIST Unspecified fall, initial encounter CT CERVICAL SPINE WO CONTRAST Schedule Routine, Read Routine (OP Routine) 07/11/2024 1:55 PM UNATTENDED GROUND SENSOR SPECIALIST Cervicalgia SCAN - OTHER ORDERS 07/10/2024 MRI ABDOMEN W WO CONTRAST Schedule Routine, Read Routine (OP Routine) 06/19/2024 9:52 AM UNATTENDED GROUND SENSOR SPECIALIST Clear cell renal cell carcinoma, right (HCC) SCAN - OTHER ORDERS 06/15/2024 ECG 12-LEAD Routine 06/05/2024 11:45 AM UNATTENDED GROUND SENSOR SPECIALIST Chest pain, unspecified type 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) TRANSTHORACIC ECHO (TTE) COMPLETE W DOPPLER/CF W CONTRAST Routine 06/05/2024 11:09 AM UNATTENDED GROUND SENSOR SPECIALIST Other chest pain Hypertensive heart disease with congestive heart failure, unspecified heart failure type (HCC) COLONOSCOPY 04/01/2022 10:41 AM CDT from Last 3 Months or Most Recently Relevant to Health Maintenance Results * MRI Brain W WO Contrast (07/28/2024 7:55 AM UNATTENDED GROUND SENSOR SPECIALIST) Anatomical Region Laterality Modality Head and Neck N/A Magnetic Resonan ce 07/28/2024 9:41 AM UNATTENDED GROUND SENSOR SPECIALIST Impressions 07/28/2024 3:11 PM UNATTENDED GROUND SENSOR SPECIALIST 1. No acute intracranial abnormality. Dictated by: Thony Valadez M.D. The radiology attending physician has personally reviewed this study, and had reviewed and/or edited this written report and agrees with it. Electronically signed by: Prasanna Lopez MD, PHD Narrative 07/28/2024 3:11 PM UNATTENDED GROUND SENSOR SPECIALIST EXAMINATION: Magnetic resonance imaging (MRI) of the [...] Electronically signed by: Prasanna Lopez MD, PHD us Florentino Hood MD IM MRI PROCEDURES Final Result * eGFR (07/24/2024 9:20 AM UNATTENDED GROUND SENSOR SPECIALIST) eGFR 64 >=60 mL/min/1. 73 m2 Comment: [...] of Race in Diagnosing Kidney Disease, JASN 2020). The CKD-EPI equation should not be used for patients with unstable renal function and has not been validated in children and those over 70. Current interpretive data was last reviewed 2021. Blood 07/24/2024 9:20 AM UNATTENDED GROUND SENSOR SPECIALIST 07/24/2024 2:24 PM UNATTENDED GROUND SENSOR SPECIALIST us Notinfile Unknown LAB BLOOD ORDERABLES Final Res ult [facility] [place] [address] * Differential, auto (07/24/2024 9:20 AM UNATTENDED GROUND SENSOR SPECIALIST) Neutrophil abs 3.4 1.5 - 6.5 K/cumm Imm gran abs 0.0 0.0 - 0.1 K/cumm [facility] Lymphocyte abs 1.8 0.8 - 3.3 K/cumm [facility] Monocyte abs 0.4 0.2 - 0.8 K/cumm [facility] Eosinophil abs 0.1 0.0 - 0.5 K/cumm [facility] Basophil abs 0.1 0.0 - 0.1 K/cumm [facility] Neutrophil pct 57.6 % [facility] Comment: Interpretive Data Percent cell count reference ranges are not reported, since discordance with absolute values may lead to misinterpretation of CBC data. Current Interpretive Data was last revised on 2017. Imm gran pct 0.5 % [facility] Comment: Interpretive Data Percent cell count reference ranges are not reported, since discordance with absolute values may lead to misinterpretation of CBC data. Current Interpretive Data was last revised on 2017. Lymphocyte pct 31.1 % [facility] Comment: Interpretive Data Percent cell count reference ranges are not reported, since discordance with absolute values may lead to misinterpretation of CBC data. Current Interpretive Data was last revised on 2017. Monocyte pct 7.5 % [facility] Comment: Interpretive Data Percent cell count reference ranges are not reported, since discordance with absolute values may lead to misinterpretation of CBC data. Current Interpretive Data was last revised on 2017. Eosinophil pct 1.9 % [facility] Comment: Interpretive Data Percent cell count reference ranges are not reported, since discordance with absolute values may lead to misinterpretation of CBC data. Current Interpretive Data was last revised on 2017. Basophil pct 1.4 % [facility] Comment: Interpretive Data Percent cell count reference ranges are not reported, since discordance with absolute values may lead to misinterpretation of CBC data. Current Interpretive Data was last revised on 2017. Blood 07/24/2024 9:20 AM UNATTENDED GROUND SENSOR SPECIALIST 07/24/2024 11:33 AM UNATTENDED GROUND SENSOR SPECIALIST us Notinfile Unknown LAB BLOOD ORDERABLES Final Res ult [facility] [place] [address] * (ABNORMAL) Thyroid Function [place] (07/24/2024 9:20 AM UNATTENDED GROUND SENSOR SPECIALIST) Pathologist [facility] TSH 37.30(H) 0.30 - 4.20 mcIUnit/mL Blood 07/24/2024 9:20 AM UNATTENDED GROUND SENSOR SPECIALIST 07/24/2024 2:14 PM UNATTENDED GROUND SENSOR SPECIALIST us Azucena Emmanuel COOK HELPER FRUIT LAB BLOOD ORDERABLES Final Re sult Performing Organization Address [facility] Co de Phone Number [facility] [place] [address] * (ABNORMAL) CBC with auto differential (07/24/2024 9:20 AM UNATTENDED GROUND SENSOR SPECIALIST) [facility] WBC 5.9 3.8 - 9.9 K/cumm Hgb 12.2 11.9 - 15.5 g/dL [facility] Hct 38.9 35.6 - 45.5 % [facility] Plt 280 150 - 400 K/cumm [facility] MPV 9.5 9.1 - 12.3 fL [facility] RBC 4.19 3.90 - 5.20 M/cumm [facility] MCV 92.8 81.3 - 96.4 fL [facility] MCH 29.1 27.1 - 33.3 pg [facility] MCHC 31.4(L) 32.3 - 35.7 g/dL [facility] RDW CV 13.5 11.1 - 14.9 % [facility] RDW SD 45.8 35.7 - 48.1 fL [facility] NRBC abs 0.00 0.00 - 0.01 K/cumm [facility] Blood 07/24/2024 9:20 AM UNATTENDED GROUND SENSOR SPECIALIST 07/24/2024 11:33 AM UNATTENDED GROUND SENSOR SPECIALIST us Azucena Emmanuel COOK HELPER [employer]UIT LAB BLOOD ORDERABLES Final Re sult Performing Organization Address City/[facility] Co de Phone Number [facility] Department [place] [address] * T4, free (07/24/2024 9:20 AM UNATTENDED GROUND SENSOR SPECIALIST) Free T4 1.67 0.90 - 1.70 ng/dL Blood 07/24/2024 9:20 AM UNATTENDED GROUND SENSOR SPECIALIST 07/24/2024 2:24 PM UNATTENDED GROUND SENSOR SPECIALIST Narrative [facility] - 07/24/2024 3:23 PM UNATTENDED GROUND SENSOR SPECIALIST This test was reflexed from a TSH result. us Notinfile Unknown LAB BLOOD ORDERABLES Final Res ult Performing Organization Address [facility] de Phone Number [facility] Department [place] [address] * Lipid panel (07/24/2024 9:20 AM UNATTENDED GROUND SENSOR SPECIALIST) Cholesterol 169 30 - 199 mg/dL Comment: [...] revised on 2018. Triglycerides 67 <=149 mg/dL [facility] Comment: Interpretive Data Ages < or = [...] on 2018. HDL 75 >=40 mg/dL [facility] Comment: Interpretive Data Ages < or = [...] 2018. LDL, calculated 81 <=129 mg/dL [facility] Comment: Interpretive Data Ages < or = [...] NCEP Expert Panel. Circulation 2004;110:227 3. Jeovany Lao al. ALBERTO Cardiol. 2020 October 26;5(5):540-548. doi: 10.1001/jamacardio.2020.0013 Current Interpretive Data was last revised on 2024. Non-HDL Cholesterol 94 mg/dL [facility] Comment: Interpretive Data Ages < or = [...] last revised on 2018. Chol/HDL ratio 2 [facility] Blood 07/24/2024 9:20 AM UNATTENDED GROUND SENSOR SPECIALIST 07/24/2024 2:14 PM UNATTENDED GROUND SENSOR SPECIALIST us Kevon Gaytan MD LAB BLOOD ORDERABLES Final Res ult [facility] Department [place] [address] * Comprehensive metabolic panel (07/24/2024 9:20 AM UNATTENDED GROUND SENSOR SPECIALIST) Sodium 141 135 - 145 mmol/L Potassium, pl 4.9 3.3 - 4.9 mmol/L [facility] Chloride 105 97 - 110 mmol/L [facility] CO2 31 22 - 32 mmol/L [facility] Anion gap 5 2 - 15 mmol/L [facility] BUN 17 6 - 25 mg/dL [facility] Creatinine 0.98 0.60 - 1.10 mg/dL [facility] Glucose 102 70 - 199 mg/dL [facility] Comment: Interpretive Data Fasting glucose >/= [...] 2022. Calcium 9.5 8.5 - 10.3 mg/dL [facility] Bilirubin, total 0.6 0.1 - 1.2 mg/dL [facility] Protein, pl 7.3 6.5 - 8.5 g/dL [facility] Albumin 4.2 3.5 - 5.0 g/dL [facility] Alk phos 84 40 - 130 Units/L [facility] ALT 16 7 - 45 Units/L [facility] AST 28 10 - 45 Units/L [facility] Blood 07/24/2024 9:20 AM UNATTENDED GROUND SENSOR SPECIALIST 07/24/2024 2:14 PM UNATTENDED GROUND SENSOR SPECIALIST us Azucena Emmanuel COOK HELPER [employer]UIT LAB BLOOD ORDERABLES Final Re sult [facility] [place] [address] * SCAN - OTHER ORDERS (07/24/2024) Provider Scanning Final Result * CT Cervical Spine WO Contrast (07/11/2024 1:55 PM UNATTENDED GROUND SENSOR SPECIALIST) Anatomical Region Laterality Modality Spine N/A Computed Tomogra phy 07/11/2024 2:08 PM UNATTENDED GROUND SENSOR SPECIALIST Impressions 07/11/2024 2:08 PM UNATTENDED GROUND SENSOR SPECIALIST No acute intracranial abnormality. No evidence of acute fracture in the cervical spine. Electronically signed by: Nghia Torre MD Narrative 07/11/2024 2:08 PM UNATTENDED GROUND SENSOR SPECIALIST EXAMINATION: Noncontrast head CT CT of the [...] by: Nghia Torre MD Florentino Hood MD [facility] CT PROCEDURES Final Result * CT Head WO Contrast (07/11/2024 1:55 PM UNATTENDED GROUND SENSOR SPECIALIST) Anatomical Region Laterality Modality Head and Neck N/A Computed Tomogra phy 07/11/2024 2:08 PM UNATTENDED GROUND SENSOR SPECIALIST Impressions 07/11/2024 2:08 PM UNATTENDED GROUND SENSOR SPECIALIST No acute intracranial abnormality. No evidence of acute fracture in the cervical spine. Electronically signed by: Nghia Torre MD Narrative 07/11/2024 2:08 PM UNATTENDED GROUND SENSOR SPECIALIST EXAMINATION: Noncontrast head CT CT of the [...] MD IM CT PROCEDURES Final Result * SCAN - OTHER ORDERS (07/10/2024) Provider Scanning Final Result * MRI Abdomen W WO Contrast (06/19/2024 9:52 AM UNATTENDED GROUND SENSOR SPECIALIST) Anatomical Region Laterality Modality Body N/A Magnetic Resonan ce 06/19/2024 11:4 4 AM UNATTENDED GROUND SENSOR SPECIALIST Impressions 06/19/2024 2:20 PM UNATTENDED GROUND SENSOR SPECIALIST 1. Post-ablation changes within the inferior pole [...] Erasmo Segal M.D. Narrative 06/19/2024 2:20 PM UNATTENDED GROUND SENSOR SPECIALIST EXAMINATION: MAGNETIC RESONANCE IMAGING OF THE ABDOMEN [...] it. Electronically signed by: Erasmo Segal M.D. us Kurtis Garcia MD IMG MRI PROCEDURES Final Result * SCAN - OTHER ORDERS (06/15/2024) us Provider Scanning Final Result * ECG 12 lead (06/05/2024 11:45 AM UNATTENDED GROUND SENSOR SPECIALIST) us Kevon Gaytan MD ECG ORDERABLES Edited Result - Final * TRANSTHORACIC ECHO (TTE) COMPLETE W DOPPLER/CF W CONTRAST (06/05/2024 11:09 AM UNATTENDED GROUND SENSOR SPECIALIST) LV EF 65 % [facility] Anatomical Region Laterality Modality Ultrasound 06/05/2024 10:3 0 AM UNATTENDED GROUND SENSOR SPECIALIST Narrative 06/05/2024 7:54 PM UNATTENDED GROUND SENSOR SPECIALIST Patient name: Sarah Marques Date of test: 06/05/2024 Type of test: TTE w/Doppler Hospital #: 0 Date of : 1955 (F) Regional Service Manager: AURORA Murphy RDCS Referring Physician: AZUCENA EMMANUEL MD Contrast Agent: 1.1 ml Optison Administered, (1.9 ml wasted). Contrast Administered by: AURORA Murphy RDCS Supervised/Interpreted by: Kevon Gaytan MD Diagnosis: Location: [facility] Reason for test: CAD MV Structure: [...] 2=Hypo 3=Akinetic 4=Dyskin./Aneurysm 0=Not visualized) Parasternal Long [place]:MAS=1 BAS=1 MIL=1 RIAN=1 Parasternal Short [place]:MAS=1 MIS=1 MA=1 MIL=1 MAL=1 MA=1 Apical 4 Chambers:=1 MIS=1 BIS=1 BAL=1 MAL=1 AL=1 AC=1 Apical 2 Chambers:AI=1 MA=1 BI=1 BA=1 MA=1 AA=1 AC=1 LV Global [...] MD By signing this report, the attending diesel bus mechanic certifies that he or she has personally supervised and interpreted the echocardiogram and has reviewed and or edited and agrees with the written comments contained within the report. Procedure Note Kevon Gaytan MD - 06/05/2024 Patient name: Sarah Marques Date of test: 06/05/2024 Type of test: TTE w/Doppler [facility] #: 0 Date of : 1955 (F) Regional Service Manager: AURORA Murphy RDCS Referring Physician: AZUCENA EMMANUEL MD Contrast Agent: 1.1 ml Optison Administered, (1.9 ml wasted). Contrast Administered by: AURORA Murphy [facility] Supervised/Interpreted by: Kevon Gaytan MD Diagnosis: Location: [facility] Reason for test: CAD MV Structure: [...] 2=Hypo 3=Akinetic 4=Dyskin./Aneurysm 0=Not visualized) Parasternal Long Reseda:MAS=1 BAS=1 MIL=1 RIAN=1 Parasternal Short Reseda:MAS=1 MIS=1 MA=1 MIL=1 MAL=1 MA=1 Apical 4 Chambers:=1 MIS=1 BIS=1 BAL=1 MAL=1 AL=1 AC=1 Apical 2 Chambers:AI=1 MA=1 BI=1 BA=1 MA=1 AA=1 AC=1 LV Global [...] MD By signing this report, the attending diesel bus mechanic certifies that he or she has personally supervised and interpreted the echocardiogram and has reviewed and or edited and agrees with the written comments contained within the report. us Azucena Gómez Cholo COOK HELPER FRUIT CV ECHO PROCEDURES Final Resu lt * COLONOSCOPY (04/01/2022 10:41 AM CDT) Anatomical Region Laterality Modality Other Narrative Procedure Note Mando Bonilla MD - 04/01/2022 10:41 AM CDT ENDOSCOPY LAB Patient Name: Sarah Marques Procedure Date: 04/01/2022 10:41 AM Date of : 1955 Admit Type: Outpatient Age: 66 Gender: Female Attending MD: Mando Bonilla M.D. Room: [facility] ENDOSCOPY ROOM 03 Note Status: Finalized Procedure: [...] The scope was passed under direct vision.The [id number] was introduced through the anusand advanced to [...] business hours - Please call theNurse Coordinator: [phone] After hours, evening, nights, weekends and holidays- Please call the hospital bread oven operator at and ask for the GI fellow environmental air specialist. Attending Participation: I personally performed the entire procedure. Electronically signed by Mando Bonilla MD Mando Bonilla M.D. 04/01/2022 11:02:27 AM Number of Addenda: 0 Note Initiated On: 04/01/2022 10:41 AM Mando Bonilla MD ENDOSCOPY PROCEDURES Final Result from Last 3 Months or Most Recently Relevant to Health Maintenance Insurance [email or web address] [facility] MEDICARE ANTHEM ACCESS HEALTHLINK OPEN ACCESS BLUE ACCESS OOS BLUE ACCESS OOS MEDICARE [email or web address] [facility] Advance Directives For more information, please contact: [phone] Documents on File Type Date Recorded Patient Missile Inspector Preflight Expl anation ADVANCE DIRECTIVE 01/14/2019 1:58 PM POWER OF FOOD STAND MANAGER-FINANCIAL/MEDICAL * Full Code (Latest Code Status on [...] 10:25 AM 05/12/2023 5:20 PM Care Teams Welding Machine Assembler Relationship Specialty Start Date End Date Florentino Hood MD [address] [facility] [place] [address] PCP - General Family Medicine 08/09/23 Kevon Gaytan MD [address] [facility] [address] [place] [address] Consulting Physician Cardiology 04/04/21 Anirudh Pena MD [address] [place] [address] Referring Physician Otolaryngology 05/12/23
--- OUTSIDE RECORDS SUMMARY | 2024-08-17 10:37 | XMS_ITS | Encounter Summary ---
Author Organization [facility] Address [address] [place] [address] Phone Care Team Providers Care Policy Writer Typist Name Role Phone Kevon Gaytan MD Unavailable [phone] Anirudh Pena MD Unavailable [phone] Florentino Hood MD Primary Care Provider [phone] Reason for Visit * Reason Onset Date Comments Test Results 07/18/[address] Encounter Details Date Type Department Care Team (Late st Contact Info) Description 07/18/2024 Telephone [facility] Cardiology [address] [facility] Advanced Medicine 8th [place] [address] [place] [address] Kevon Gaytan MD [address] [place] [address] Test Results (Brain CT ) Social History Tobacco Use Types Packs/Day Years [...] on file Legal Sex Female 12:18 AM COOK TACO Gender Identity Not on file Sexual Orientation Not on file Occupation Industry Job Start Date Job End Date unemployed Not on file Not on file Not on file documented as of this encounter Miscellaneous Notes * Telephone Encounter - Letty Butler RN - 07/18/2024 12:58 PM COOK TACO Lukas Pt states she had a CT scan and was told she has 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 They issues pt has been having is possibly caused by this please call. Can you call the pt and see if she can come in today to see Azucena to discuss or (07/20/24)? 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 They issues pt has been having is possibly caused by this please call. TACO documented in this encounter Plan of Treatment Not on file documented as of this encounter Goals Goal Patient Goal Type Associated Problems [...] needed Reduce the likelihood of falling Lifestyle No Katlyn Campa RN Note: Below are four things you [...] on stairs Contact your local community or guardian hospital for information on exercise, fall prevention programs, or options for improving home safety. documented as of this encounter Visit Diagnoses Not on filedocumented in this encounter Care Teams Policy Writer Typist Relationship Specialty Start Date End Date Florentino Hood MD [address] [facility] DEPT [place] [address] PCP - General Family Medicine 08/09/23 Kevon Gaytan MD [address] [facility] [address] [place] [address] Consulting Physician Cardiology 04/04/21 Anirudh Pena MD [address] [place] [address] Referring Physician Otolaryngology 05/12/23 documented as of this encounter
--- OUTSIDE RECORDS SUMMARY | 2024-08-17 10:37 | XMS_ITS | Encounter Summary ---
Author Organization [facility] Address [address] [place] [address] Care Team Providers Care Digital Media Intern Name Role Phone Fani Cotton BENZENE STILL UTILITY OPERATOR Primary Care Provider Crystal Bryant BENZENE STILL UTILITY OPERATOR Primary Care Provider Unav ailable None, Provider Primary Care Provider Florentino Matthews MD Primary Care Provider [phone] Encounter Details Date Type Department Care Team (Late st Contact Info) Description 05/01/2015 Abstract [facility] CONVERSION [address] [id number] , Generic Conversion, Social History Tobacco Use Types Packs/Day Years Used Date Smoking Tobacco: Never Assessed Comments Unknown Sex and Gender Information Value Date Recorded Sex Assigned at Female 05/18/2018 8:26 AM ORTHOTIC FINISH GRINDING TECHNICIAN Legal Sex Female 8:45 AM CDT Gender Identity Female 05/18/2018 8:26 AM ORTHOTIC FINISH GRINDING TECHNICIAN Sexual Orientation Straight 05/18/2018 8: 26 AM ORTHOTIC FINISH GRINDING TECHNICIAN documented as of this encounter Plan of Treatment Not on file documented as of this encounter Visit Diagnoses Not on filedocumented in this encounter Additional Health Concerns Infection Onset Date Last Indicated Resolved Time COVID-19 Rule Out 12/31/2023 12/31/2023 12/31/2023 11:43 AM CDT documented as of this encounter Care Teams Digital Media Intern Relationship Specialty Start Date End Date Fani Cotton NP PCP - General NURSE PRACTITIONER 05/18/18 03/07/20 Crystal Shannon NP PCP - General NURSE PRACTITIONER 03/08/20 04/06/21 None, Provider, PCP - General 11/10/21 04/21/22 Florentino Hood MD PCP - General HOSPITALIST 04/22/22 documented as of this encounter
--- OUTSIDE RECORDS SUMMARY | 2024-08-17 10:37 | XMS_ITS | Encounter Summary ---
Author Organization [facility] Address [address] [place] [address] Care Team Providers Care Banker Mason Name Role Phone Katlyn Jones MD Primary Care Provider [phone] Kevon Gaytan MD Unavailable [phone] Oscar Hood MD Primary Care Provider [phone] Anirudh Pena MD Unavailable [phone] Florentino Hood MD Primary Care Provider [phone] Encounter Details Date Type Department Care Team (Late st Contact Info) Description 07/02/2020 Telephone [facility] Radiology at [facility] [address] [place] [address] Leatha Truong, MAYA Social History Tobacco Use Types Packs/Day Years Used Date Smoking Tobacco: Never Smokeless Tobacco: Never Alcohol Use Standard Drinks/Week Comments No 0 (1 standard drink = 0.6 oz pur e alcohol) Comments No Sex and Gender Information Value Date Recorded Sex Assigned at Not on file Legal Sex Female 12:18 AM ACTING TEACHER Gender Identity Not on file Sexual Orientation [...] COVID: Suspected 08/27/2022 08/27/2022 08/27/2022 7:54 PM ACTING TEACHER COVID: Suspected 07/26/2023 07/26/2023 07/26/2023 6:45 PM ACTING TEACHER documented as of this encounter Care Teams Banker Mason Relationship Specialty [place] [address] [facility] [address] [place] [address] PCP - General Internal Medicine 04/29/18 05/15/21 Oscar Hood MD [address] [place] [address] PCP - General 05/16/21 08/08/23 Florentino Hood MD [address] [facility] [place] [address] PCP - General Family Medicine 08/09/23 Kevon Gaytan MD [address] [facility] [address] [place] [address] Consulting Physician Cardiology 04/04/21 Anirudh Pena MD [address] [place] [address] Referring Physician Otolaryngology 05/12/23 documented as of this encounter
--- OUTSIDE RECORDS SUMMARY | 2024-08-17 10:37 | XMS_ITS | Encounter Summary ---
Author Organization [facility] Address [address] [place] [address] Phone Care Team Providers Care Pizzamaker Name Role Phone Katlyn Jones MD Primary Care Provider [phone] Kevon Gaytan MD Unavailable [phone] Oscar Hood MD Primary Care Provider [phone] Anirudh Pena MD Unavailable [phone] Florentino Hood MD Primary Care Provider [phone] Encounter Details Date Type Department Care Team (Latest Contact Info) Description 11/25/2018 Orders Only [facility] Scanning, Provider Social History Tobacco Use Types Packs/Day Years Used Date Smoking Tobacco: Never Smokeless Tobacco: Never Alcohol Use Standard Drinks/Week Comments No 0 (1 standard drink = 0.6 oz pur e alcohol) Comments No Sex and Gender Information Value Date Recorded Sex Assigned at Not on file Legal Sex Female 12:18 AM IMPLEMENTATION DIRECTOR Gender Identity Not on file Sexual Orientation Not on file documented as of this encounter Plan of Treatment Not on file documented as of this encounter Procedures Procedure Name Priority Date/Time Associated Diagnosis Comments CARDIOLOGY DOCUMENT SCAN 11/25/2018 documented in this encounter Results * SCAN - CARDIOLOGY (11/25/2018) Anatomical Region Laterality Modality Other us Provider Scanning CV CARDIAC SERVICES PROCEDURES Final Result documented in this encounter Visit Diagnoses Not on filedocumented in this encounter Additional Health Concerns Infection Onset Date Last Indicated Resolved Time COVID: Suspected 04/19/2022 04/19/2022 04/19/2022 1:18 PM CDT RSV, droplet 04/19/2022 04/19/2022 04/26/2022 3:05 AM CDT COVID: Suspected 08/27/2022 08/27/2022 08/27/2022 7:54 PM IMPLEMENTATION DIRECTOR COVID: Suspected 07/26/2023 07/26/2023 07/26/2023 6:45 PM IMPLEMENTATION DIRECTOR documented as of this encounter Care Teams Pizzamaker Relationship Specialty [place] [address] [place] [address] PCP - General Internal Medicine 04/29/18 05/15/21 Oscar Hood MD [address] [place] [address] PCP - General 05/16/21 08/08/23 Florentino Hood MD [address] [facility] [place] [address] PCP - General Family Medicine 08/09/23 Kevon Gaytan MD [address] [facility] [address] [place] [address] Consulting Physician Cardiology 04/04/21 Anirudh Pena MD [address] [place] [address] Referring Physician Otolaryngology 05/12/23 documented as of this encounter
--- OUTSIDE RECORDS SUMMARY | 2024-08-17 10:37 | XMS_ITS | Clinical Summary ---
Author Organization [facility] Address [address] [place] [address] Care Team Providers Care Supervisor Typesetting Name Role Phone Florentino Hood MD Primary Care Provider [phone] Allergies Active Allergy Reactions Criticality Noted Date Comments Acetaminophen-Codeine Nausea and Vomiting Medium 02/20 N/V and off balance Amlodipine Other (see comment) High 07/20/2016 Codeine Vomiting,Nausea and Vomiting,Shortness of Breath High 11/20/2008 Over sedation Fentanyl Shortness of Breath High 03/09/2014 Pt coded Hydrocodone Other (see comment) Low 06/08/2018 Over sedation Hydromorphone Shortness of Breath High 03/09/2014 Decreased breathing Isosorbide Unknown 06/30/2017 Isosorbide Nitrate Angioedema,Other (se e comment) High 06/23/2017 Morphine Unknown,Shortness of Breath High 08/07/2013 Over sedation Oxycodone Other (see comment) Low 06/11/2016 OVERSEDATION Over sedation Prochlorperazine Angioedema High Propoxyphene Shortness of Breath High 03/09/2014 Over sedation Medications spironolactone 25 MG tablet Take 0.5 tablets by mouth daily as needed. 2 8 Active aspirin (ASPIRIN LOW DOSE) 81 MG tablet Take 1 tablet by mouth daily. 7 Active clopidogrel 75 MG tablet TK 1 T PO D 2 8 Active Cyanocobalamin (B-12) [address] 1 tablet under the tongue daily. 6 Active REPATHA SURECLICK 140 MG/ML injection (PEN) ADM 1 ML SC Q 14 DAYS 6 8 Active losartan 100 MG tablet Take 1 tablet by mouth daily. 3 8 Active metoprolol tartrate 25 MG tablet Take 0.5 tablets by mouth 2 (two) times daily. 7 Active nitroglycerin 0.[address] 1 T UNT Q 5 MIN FOR UP TO 3 DOSES PRF CHEST PAIN. CALL 911 IF PAIN PERSISTS 2 8 Active LINZESS 145 MCG capsule as needed. 0 Active predniSONE 10 mg tabletIndications :Sinusitis, unspecified chronicity, unspecified location Take 20 mg (two tabs) x 7 days then 10 mg (one tab) for 7 days 21 tablet 0 Active levothyroxine 50 MCG tablet Take 50 mcg by mouth every morning. Active azithromycin (ZITHROMAX) 250 MG tabletIndications :Productive cough Take 2 tablets on day 1; then take 1 tablet daily days 2-5 6 tablet 0 Active VITAMIN D2, ERGOCALCIFEROL, 79132 UNITS capsuleIndication s:Vitamin D deficiency TAKE 1 CAPSULE BY MOUTH EVERY 7 DAYS 4 capsule 0 Active SYNTHROID 200 MCG tabletIndications :Hypothyroidism, postsurgical Take 1 tablet (200 mcg total) by mouth daily. 30 tablet 1 Active albuterol sulfate HFA 108 (90 Base) MCG/ACT inhaler Inhale 2 puffs into the lungs every 6 (six) hours as needed for Wheezing (cough). 18 g 4 Active Spacer/Aero-Holdi ng Chambers (BREATHERITE NIKOLAI SPACER ADULT) MiscIndications:B ronchitis 1 Units by Does not apply route as needed. 1 each 4 Active Active Problems Problem Noted Date Diagnosed Date Intestinal metaplasia of gastric mucosa 02/07/20 20 Overview (03/08/2020): Added automatically from request for surgery [id number] Acute upper respiratory infection 11/30/2019 COVID-19 virus detected 11/30/2019 Sore throat 08/02/2019 Secondary hyperparathyroidism ([facility]) 02/24/2019 Kidney cysts 01/23/2019 Angiomyolipoma of right kidney 01/23/2019 History of colon polyps 01/19/2019 Overview (03/08/2020): Overview: Added automatically from request for surgery [id number] Epigastric pain 01/19/2019 Overview (03/08/2020): Overview: Added automatically from request for surgery [id number] Early satiety 01/19/2019 Overview (03/08/2020): Overview: Added automatically from request for surgery [id number] Abnormal CT scan, sigmoid colon 01/03/2019 Shortness of breath 11/16/2018 Chronic fatigue 11/16/2018 Other acute gastritis without hemorrhage 019 Sinusitis, unspecified chronicity, unspecified l ocation 10/27/2018 Acute streptococcal pharyngitis 09/28/2018 Weight gain 09/28/2018 Weight gain 09/28/2018 Parasites in stool 08/18/2018 Nausea and vomiting, intract ability of vomiting not specified, unspecified vomiting type 08/18/2018 Abnormal EKG 05/05/2018 Overview (03/08/2020): Overview: Added automatically from request for surgery [id number] Wrist pain, acute 03/30/2018 Other chest pain 05/02/2017 Atherosclerosis of coronary artery 05/02/2017 Bruit 04/20/2017 Pre-syncope 02/19/2017 Abnormal findings on cardiac catheterization Suspected sleep apnea 02/05/2017 Obstructive sleep apnea syndrome 01/22/2017 History of cardiac catheterization 01/22/2017 Hypokalemia 12/23/2016 Jaw pain 06/18/2016 High risk medication use 06/18/2016 Cramps of lower extremity 06/18/2016 Temporary cerebral vascular dysfunction 06/11/20 16 Mild cardiomegaly 04/23/2016 Dyslipidemia 01/19/2016 Hypertensive heart disease w ith congestive heart failure ([facility]) 01/16/2016 Benign hypertension 12/24/2014 Insomnia 11/27/2014 Cervicalgia 10/11/2014 Elevated blood sugar level 09/10/2014 Hypocalcemia 08/29/2014 Cervical spondylosis 02/22/2014 Hypothyroidism, postsurgical 02/21/2014 Cervical disc herniation 02/19/2014 Cystocele without uterine prolapse 08/07/2013 Hyperlipidemia 08/07/2013 Vitamin D deficiency 08/07/2013 Immunizations Name Administration Dates Next Due Fluzone Adult - >Age 3 (Pref illed Syringe) 03/08/2020(Deferred: Patient Refused) Tdap (Adacel) 04/26/2019 Family History Medical History Relation Comments cerebrovascular accident Father jacqueline encephalopathy Sister Relation Status Comments Father Sister Social History Tobacco Use Types Packs/Day Years Used Date Smoking Tobacco: Never Smokeless Tobacco: Never Tobacco Cessation:Counseling Given: No Alcohol Use Standard Drinks/Week Comments No 0 (1 standard drink = 0.6 oz pur e alcohol) AUDIT-C Answer Date Recorded Frequency of Alcohol Consumption Never 05/18/2018 Average Number of Drinks Not on file 018 Frequency of Binge Drinking Not on file 04/29 Overall Financial Resource Strain (CARDIA) Answe r Date Recorded Difficulty of Paying Living Expenses Not hard at all 05/18/2018 PHQ-2 Answer Date Recorded PHQ-2 Score - If the patient scores above 3, please move on to questions 3-9 0 03/08/2020 Hunger Vital Sign Answer Date Recorded Worried [...] Sex Assigned at Female 05/18/2018 8:26 AM [facility] Legal Sex Female 8:45 AM CDT Gender Identity Female 05/18/2018 8:26 AM [facility] Sexual Orientation Straight 05/18/2018 8: 26 AM [facility] 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 Not on file Not on file Not on file Last Filed Vital Signs Vital Sign Reading Time Taken Comments Blood Pressure 137/96 12/31/2023 12:54 PM CDT Pulse 60 12/31/2023 9:55 AM CDT Temperature 36.7 C (98.1 F) 12/31/2023 12:54 PM CDT Respiratory Rate 18 12/31/2023 9:55 AM CDT Oxygen Saturation 100% 12/31/2023 12: 54 PM CDT Inhaled Oxygen Concentration - - Weight 97.5 kg (214 lb 15.2 oz) 024 10:03 AM CDT Height 172.7 cm (5' 8 ) 12/31/2023 10:0 3 AM CDT Body Mass Index 32.68 12/31/2023 10:03 AM CDT Plan of Treatment Health Maintenance Due Date Last Done Comments ASCVD Statin 1955 Pneumococcal Vaccine: 65+ Years (1 of 2 - PCV) 11/16/1963 Hepatitis C 11/16/1975 Zoster Vaccines (1 of 2) 11/16/2007 Mammogram Screening 08/29/2015 08/28/2013 RSV Immunization or 60+ Years (1 - Risk 60-74 years 1-dose series) 2017 ASCVD LDL 03/18/2020 03/18/2019, 04/29, 05/18/2018, Additional history exists Annual Medicare Wellness Visit 2022 Dexa Scan (General) 2022 COVID-19 Vaccine ( - season) 2024 Influenza Adult (#1) 2024 Colorectal Cancer Screening Colonoscopy (10 Years) 02/16/2029 02/16/2019 DTaP, Tdap and Td Vaccines (2 - Td or Tdap) 04/26/2029 04/26/2019 Meningococcal B Vaccine Aged Out No l onger eligible based on patient's age to complete this topic Meningococcal Vaccine Aged Out No kristal mark anthony eligible based on patient's age to complete this topic RSV Immunizations Under 20 Months Aged Out No longer eligible based on patient's age to complete this topic Procedures Procedure Name Priority Date/Time Associated Diagnosis Comments LIPID PANEL Routine 03/18/2019 7:40 AM CDT Hyperlipidemia, unspecified hyperlipidemia type COLONOSCOPY GENERIC (SCAN ORDER) Routine 02/16/2019 MG SCREENING RIAN DIGI Routine 08/28/2013 3:48 PM [facility] from Last 3 Months or Most Recently Relevant to Health Maintenance Results * LIPID PANEL (03/18/2019 7:40 AM CDT) CHOLESTEROL 143 <200.0 MG/DL 03/18/2019 8:29 AM T [facility] TRIGLYCERIDES 74 <150 MG/DL 03/18/2019 8:29 AM T [facility] HDL 64 >40.0 MG/DL 03/18/2019 8:29 AM [facility] LDL (CALCULATED) 64 <100 MG/DL 03/18/20 19 8:29 AM T [facility] NON HDL CHOLESTEROL 79 <130 MG/DL 03/18 8:29 AM [facility] CHOL/HDL RATIO 2.2 0.0 - 4.5 03/18/2019 8:29 AM [facility] VLDL CALCULATION 15 5 - 55 MG/DL 03/18/2019 8:29 AM [facility] LIPID INTERPRETATION 03/18/2019 8:29 AM [facility] Comment: [facility] REPORT RECOMMENDATIONS: ADULT CHILD LOW RISK: CHOLESTEROL <200 <170 TRIGLYCERIDE <150 --- HDL >=60 --- LDL <100 <110 BORDERLINE: CHOLESTEROL 200-239 170-199 TRIGLYCERIDE 150-199 --- HDL 40-59 --- LDL 100-159 110-129 HIGH RISK: CHOLESTEROL >=240 >=200 TRIGLYCERIDE >=200 --- HDL <40 --- LDL >=160 >=130 03/18/2019 7:40 AM CDT Fani Cotton NP LABORATORY Final Result [facility] [address] [place] [address], * COLONOSCOPY (02/16/2019) us Documents Scanned SCANNING Edited Result - Final * MG SCREENING RIAN DIGI (08/28/2013 3:48 PM [facility]) Anatomical Region Laterality Modality Breast Bilateral Mammography 08/28/2013 3:48 PM [facility] 08/28/2013 3:48 PM [facility] Narrative 08/28/2013 7:26 PM [facility] VERO MARQUES ORDERING MD: KATLYN WALTERS MD ACCT: [id number] ADMIT/SERVICE DATE: 08/26/13 DISCHARGE DATE: : 1955 PT TYPE: REG CLI SEX: F ORD SITE: [facility] STUDY DATE REPORT # PROCEDURE CODE PROCEDURE 08/26/13 [id number] [id number] MG SCREEN MAMMO DIGITAL BI EXTORDERID [id number] CHART DOCUMENT DIVISION OF RADIOLOGY ACCESSION # EXAM DATE EXAM DESCRIPTION [id number] 08/26/2013 MG SCREEN MAMMO DIGITAL BI IMAGING STUDIES: BILATERAL DIGITAL SCREENING MAMMOGRAM WITH CAD COMPARISON: DIGITIZED FILM-SCREEN MAMMOGRAM, . DIGITAL MAMMOGRAM AND BILATERAL BREAST ULTRASOUND, 01/19/12. DISCUSSION: BILATERAL DIGITAL SCREENING MAMMOGRAM WITH CAD. STANDARD MAMMOGRAPHIC VIEWS. SCATTERED FIBROGLANDULAR TISSUE WITH GREATEST REMAINING TISSUE IN THE UPPER OUTER QUADRANT OF EACH BREAST. NO MAMMOGRAPHICALLY SUSPICIOUS MASS, MICROCALCIFICATION, OR ARCHITECTURAL DISTORTION. IMPRESSION: NO MAMMOGRAPHIC EVIDENCE OF MALIGNANCY. RECOMMEND ANNUAL MAMMOGRAM. BI-RADS CATEGORY 2. BENIGN. MQSA MAMMOGRAM CLASSIFICATION BI-RADS CATEGORY 0-NEED ADDITIONAL IMAGING EVALUATION BI-RADS CATEGORY 1-NEGATIVE BI-RADS CATEGORY 2-BENIGN FINDINGS BI-RADS CATEGORY 3-PROBABLY BENIGN FINDING-SHORT INTERVAL FOLLOW UP SUGGESTED BI-RADS CATEGORY 4-SUSPICIOUS ABNORMALITY-BIOPSY SHOULD BE CONSIDERED BI-RADS CATEGORY 5-HIGHLY SUGGESTIVE OF MALIGNANCY-APPROPRIATE ACTION SHOULD BE TAKEN ELECTRONICALLY SIGNED BY SERGIO HERNANDEZ MD 08/28/2013 19:25 CRR/JV 08/28/2013 3:48 P 08/28/2013 4:00 P JOB NO: DOC NO: [id number] CC: Procedure Note Mary Anglin MD - 04/20/2018 VERO MARQUES ORDERING MD: KATLYN WALTERS MD ACCT: [id number] ADMIT/SERVICE DATE: 08/26/13 DISCHARGE DATE: : 1955 PT TYPE: REG CLI SEX: F ORD SITE: [facility] STUDY DATE REPORT # PROCEDURE CODE PROCEDURE 08/26/13 [id number] SCMAMDGB MG SCREEN MAMMO DIGITAL BI EXTORDERID [id number] CHART DOCUMENT DIVISION OF RADIOLOGY ACCESSION # EXAM DATE EXAM DESCRIPTION [id number] 08/26/2013 MG SCREEN MAMMO DIGITAL BI IMAGING STUDIES: BILATERAL DIGITAL SCREENING MAMMOGRAM WITH CAD COMPARISON: DIGITIZED FILM-SCREEN MAMMOGRAM, . DIGITAL MAMMOGRAM AND BILATERAL BREAST ULTRASOUND, 01/19/12. DISCUSSION: BILATERAL DIGITAL SCREENING MAMMOGRAM WITH CAD. STANDARD MAMMOGRAPHIC VIEWS. SCATTERED FIBROGLANDULAR TISSUE WITH GREATEST REMAINING TISSUE IN THEUPPER OUTER QUADRANT OF EACH BREAST. NO MAMMOGRAPHICALLY SUSPICIOUS MASS, MICROCALCIFICATION, OR ARCHITECTURAL DISTORTION. IMPRESSION: NO MAMMOGRAPHIC EVIDENCE OF MALIGNANCY. RECOMMEND ANNUAL MAMMOGRAM. BI-RADS CATEGORY 2. BENIGN. MQSA MAMMOGRAM CLASSIFICATION BI-RADS CATEGORY 0-NEED ADDITIONAL IMAGING EVALUATION BI-RADS CATEGORY 1-NEGATIVE BI-RADS CATEGORY 2-BENIGN FINDINGS BI-RADS CATEGORY 3-PROBABLY BENIGN FINDING-SHORT INTERVAL FOLLOW UP SUGGESTED BI-RADS CATEGORY 4-SUSPICIOUS ABNORMALITY-BIOPSY SHOULD BE CONSIDERED BI-RADS CATEGORY 5-HIGHLY SUGGESTIVE OF MALIGNANCY-APPROPRIATE ACTION SHOULD BE TAKEN ELECTRONICALLY SIGNED BY SERGIO HERNANDEZ MD 08/28/2013 19:25 CRR/JV 08/28/2013 3:48 P 08/28/2013 4:00 P JOB NO: DOC NO: [id number] CC: Katlyn Walters MD MAMMO Final Result from Last 3 Months or Most Recently Relevant to Health Maintenance Insurance MEDICARE Advance Directives Healthcare Agents on File Name Relationship Healthcare Agent Relationshi p Communication Brian Marques Spouse Health Care Agent Care Teams Supervisor Typesetting Relationship Specialty Start Date End Date Florentino Hood MD PCP - General HOSPITALIST 04/22/22
--- OUTSIDE RECORDS SUMMARY | 2024-08-17 10:37 | XMS_ITS | Patient Health Summary ---
Author Organization [facility] Address [address] [place] [address] Care Team Providers Care Living Specialist Name Role Phone Katlyn Jones MD Primary Care Provider [phone] Azucena Peres RN Unavailable [phone] Note from [facility],non-owned Affiliates and Associated Physician Practices is amultiple site organization consisting of ambulatory clinics and hospital sitesin [place], [place], [place] and [place]. This disclosure is being madepursuant to the Care Everywhere program and may not contain all information available regarding this patient. Last updated 18.[facility] Allergies * Codeine(Shortness of Breath,Nausea and/or Vomiting) -High Criticality * Propoxyphene N-Apap(Shortness of Breath) -High Criticality * Hydromorphone(Decreased breathing) * Fentanyl(Pt coded) * Morphine(Shortness of Breath) -High Criticality Medications * Be aware that medications may not be up to date on this document. Alwaysverify current medications with the patient. * levothyroxine (SYNTHROID) 150 MCG tablet Take 150 mcg by mouth daily before breakfast. * docusate sodium (COLACE) 100 MG capsule(Started 03/15/2014) Take 1 Cap by mouth 2 times daily. 5 refills left * ibuprofen (MOTRIN) 600 MG tablet(Started 03/15/2014) Take 1 Tab by mouth every 6 hours as needed for Pain. 2 refills left Active Problems Problem Noted Date Diagnosed Date [...] Comments Blood Pressure 172/96 05/04/2014 1:10 PM DEVELOPMENT ANALYST Pulse 65 03/15/2014 8:02 AM CDT Temperature 36.9 C (98.4 F) 03/15/2014 8:02 AM CDT Respiratory Rate 17 03/15/2014 8:02 AM CDT Oxygen Saturation 100% 03/15/2014 8:02 AM CDT Inhaled Oxygen Concentration - - Weight 108 kg (238 lb) 05/04/2014 1:10 PM DEVELOPMENT ANALYST Height 172.7 cm (5' 8 ) 05/04/2014 1:10 PM DEVELOPMENT ANALYST Body Mass Index 36.19 05/04/2014 1:10 PM DEVELOPMENT ANALYST Medical Devices Implanted Type Area Commercial Producer Device Identifier Shelf Expiration Date Model / Serial / Lot Grft Tiss Rep Xenform 4 X 7cm Implanted:Qty: 1 on 03/14/2014 by Anirudh Payton MD at [facility] [employer] 03/27/2016 [id number] / / [id number] Procedures * LAB HISTORICAL RESULTS-ONBASE(Performed 05/04/2014) * IMAGING/RADIOLOGY/XRAY RESULTS ORDER(Performed 03/16/2014) * CARDIAC EKG ORDER(Performed 03/16/2014) * LAB RESULTS ORDER(Performed 03/16/2014) * CARDIAC RHYTHM STRIP ORDER(Performed 03/16/2014) * CYSTOSCOPY (FLEXIBLE/RIGID)(Performed 03/14/2014) Performed for Cystocele, midline, Mixed Incontinence Urge And Stress (Male)(Female), Urinary frequency * COLPORRHAPHY ANTERIOR/POSTERIOR REPAIR(Performed 03/14/2014) Performed for Cystocele, midline, Mixed Incontinence Urge And Stress (Male)(Female), Urinary frequency * CULTURE URINE COMPREHENSIVE(Performed 01/19/2014) * URINALYSIS - POINT OF CARE (AMB) [facility](Performed 01/16/2014) Results * LAB HISTORICAL RESULTS-ONBASE (05/04/2014) 05/04/[address] [facility] - 05/07/2014 2:17 PM DEVELOPMENT ANALYST Historical Provider LAB - CHEMISTRY O YEN Performing Organization Address City/[facility]/ZIP Co de Phone Number [facility] [address] [place] [address], [facility] * IMAGING/RADIOLOGY/XRAY RESULTS ORDER (03/16/2014 3:31 PM CDT) Anatomical Region Laterality Modality Other Scanned Document IMAGING * LAB RESULTS ORDER (03/16/2014 3:31 PM CDT) Provider Unknown LAB - THERAPEUTIC DR MATT MONITORING ORDERABLES * CARDIAC EKG ORDER (03/16/2014 3:31 PM CDT) Scanned Document CARDIAC SERVICES ORD ERABLES * CARDIAC RHYTHM STRIP ORDER (03/16/2014 3:30 PM CDT) Provider Unknown CARDIAC SERVICES ORD ERABLES * CULTURE URINE COMPREHENSIVE (01/19/2014 8:00 AM CDT) Culture SEE NOTE [facility]) Comment: CULTURE, URINE, SPECIAL MICRO NUMBER: [id number] TEST STATUS: FINAL SPECIMEN SOURCE: URINE SPECIMEN QUALITY: ADEQUATE RESULT: No Growth NO COLLECTION DATE RECEIVED. WE HAVE USED THE DATE THE SPECIMEN WAS RECEIVED BY THIS LABORATORY THE COLLECTION DATE. IF THIS IS INCORRECT, PLEASE CONTACT CLIENT SERVICES. PHONE NUMBER: [phone] Test Performed at: [facility] [id number] JAMILA WHITE MD Urine specimen (specimen) 01/19/2014 8:00 AM CDT 01/17/2014 4:04 AM CDT Anirudh Payton MD LAB - MICROBIOLOGY O YEN Performing Organization Address [facility]/ZIP Co de Phone Number [facility]) * URINALYSIS - POINT OF CARE (AMB) [facility] (01/16/2014) Glucose UA neg [facility] Ketones UA POCT neg [facility] Blood Urine POCT tr [facility] Protein UA neg [facility] Nitrite UA neg [facility] WBC [place] Urine specimen (specimen) 01/16/2014 Anirudh Payton MD LAB - POINT OF CARE ORDERABLES [facility] Care Teams Living Specialist Relationship Specialty Start Date End Date Katlyn Jones MD PCP - General Internal Medicine 03/09/14 Azucena Peres, RN Behavior Interventionist 03/15/14
--- OUTSIDE RECORDS SUMMARY | 2024-08-17 10:37 | XMS_ITS | Clinical Summary ---
Author Organization [facility] Address [address] [place] [address] Care Team Providers Care Dealer Compliance Representative Name Role Phone Katlyn Jones MD Primary Care Provider [phone] Azucena Peres RN Unavailable [phone] Source Comments [facility],non-owned Affiliates and Associated Physician Practices is amultiple site organization consisting of ambulatory clinics and hospital sitesin [place], [place], [place] and [place]. This disclosure is being madepursuant to the Care Everywhere program and may not contain all information available regarding this patient. Last updated 18.[facility] Allergies Active Allergy Reactions Criticality Noted Date [...] Problem Noted Date Diagnosed Date Cystocele 03/14/2014 Family History Medical History Relation Name Comments Heart Disease Father Cancer - Colon Sister Relation Name Status Comments Father Sister Social History Tobacco [...] Comments Blood Pressure 172/96 05/04/2014 1:10 PM ORACLE WEBCENTER CONSULTANT Pulse 65 03/15/2014 8:02 AM CDT Temperature 36.9 C (98.4 F) 03/15/2014 8:02 AM CDT Respiratory Rate 17 03/15/2014 8:02 AM CDT Oxygen Saturation 100% 03/15/2014 8:02 AM CDT Inhaled Oxygen Concentration - - Weight 108 kg (238 lb) 05/04/2014 1:10 PM [employer]ACLE WE[employer] CONSULTANT Height 172.7 cm (5' 8 ) 05/04/2014 1:10 PM ORACLE WEBCENTER CONSULTANT Body Mass Index 36.19 05/04/2014 1:10 PM [employer]ACLE WEBC[employer] CONSULTANT Plan of Treatment Health Maintenance Due Date Last Done Comments BONE DENSITY TESTING 1955 COLOGUARD (AGES 45-75) - COL ON CA SCREENING 1955 COLON MONITORING 1957 COLONOSCOPY - COLON CA SCREENING 1957 CT COLONOGRAPHY - COLON CA SCREENING 1955 Colorectal Cancer Screening 1955 FIT - COLON CA SCREENING 1955 FLEX SIG - COLON CA SCREENING 1955 LIPID TESTING 1955 MAMMOGRAM 1955 HEPATITIS C SCREENING 11/11/1975 DTAP/TDAP/TD VACCINES (1 - Tdap) 1976 PNEUMOCOCCAL VACCINE 50+ (1 of 1 - PCV) 11/16/2007 ZOSTER VACCINE (1 of 2) 11/16/2007 COVID-19 VACCINE ( - 2023-2 5 season) 2024 INFLUENZA VACCINE (#1) 2024 DEPRESSION SCREENING 06/28/2024 Respiratory Syncytial Virus (RSV) Vaccine Pt: or over 60 yrs (1 - 1-dose 75+ series) 2032 HEPATITIS B VACCINE Aged Out No longe r eligible based on patient's age to complete this topic HIB VACCINE Aged Out No longer eligi ble based on patient's age to complete this topic HPV VACCINE Aged Out No longer eligi ble based on patient's age to complete this topic MENINGOCOCCAL (Group B) VACCINE Aged Out No longer eligible based on patient's age to complete this topic MENINGOCOCCAL VACCINE Aged Out No kristal mark anthony eligible based on patient's age to complete this topic Medical Devices Implanted Type Area Sap Abap Developer Device Identifier Shelf Expiration Date Model / Serial / Lot Grft Tiss Rep Xenform 4 X 7cm Implanted:Qty: 1 on 03/14/2014 by [facility] [employer] 03/27/2016 [id number] / / [id number] Advance Directives * Full Code (Latest Code Status on File) Date Activated Date Inactivated Comments 03/14/2014 5:19 PM 03/15/2014 12:59 PM Care Teams Dealer Compliance Representative Relationship Specialty Start Date End Date Katlyn Jones MD PCP - General Internal Medicine 03/09/14 Azucena Peres, RN Pharmacy Innovation Assistant 03/15/14
[2024-08-17] MEDS: SODIUM CHLORIDE 0.9% IV 1,000 ML 999 ML IV CONT (10:41)
[2024-08-17 10:45] LABS: Prothrombin Time 13.5 Seconds (11.1-14.7)
[2024-08-17 10:47] LABS: Partial Thromboplastin Time 22.6 Seconds (22.3-36.8)
[2024-08-17 10:55] LABS: Alanine Aminotransferase 21 U/L (6-35); Albumin Level 4.2 g/dL (3.5-5.1); Alkaline Phosphatase 107 U/L (38-126); Anion Gap 10 mmol/L (4-12); Aspartate Amino Transferase 27 U/L (14-36); Bilirubin,Total 0.6 mg/dL (0.2-1.3); Blood Urea Nitrogen 20 mg/dL (7-17); Calcium 9.2 mg/dL (8.4-10.2); Carbon Dioxide 26 mmol/L (22-30); Chloride 102 mmol/L (98-107); Estimated CRCL calculation 80 ml/min; Estimated Glomerular Filt Rate > 60; Glucose 134 mg/dL (65-110); Potassium 3.8 mmol/L (3.4-5.0); Sodium 138 mmol/L (137-145)
--- NOTE | 2024-08-17 11:04 | ED.AMS ---
HPI - Altered Mental Status General Chief Complaint: Altered Mental Status Stated Complaint: AMS Time Seen by Provider: 08/17/24 10:12 History of Present Illness HPI narrative: Patient is a 68-year-old female who presents the ER with altered mental status. Found on the ground in her bathroom incontinent of stool in urine. She has trauma to her left face. Patient has depressed mental status but wakes up with some minor stimulation. She answers questions the best of her ability. She has new weakness in her left arm. She has weakness in bilateral lower extremities were she cannot lift them off the bed but can move her feet. Related Data Allergies Allergy/AdvReac Type Severity Reaction Status Date / Time codeine Allergy Unknown Verified 10/09/14 10:47 morphine Allergy Unknown Verified 10/09/14 10:47 HORSERADISH Allergy Severe BREATHING Uncoded 03/13/11 19:53 DIFFICULTIES DARVOCET Allergy Intermediate BREATHING Uncoded 03/13/11 19:53 DIFFICULTIES PMFSH Past Medical History Medical History (Updated 08/17/24 @ 12:01 by Anirudh Pompa MD) Hypothyroidism CAD (coronary artery disease) of artery bypass graft Hyperlipidemia Hypertension Surgical History Surgical History (Updated 08/17/24 @ 11:41 by Anirudh Pompa MD) History of percutaneous coronary intervention Family History Family History (Updated 10/09/14 @ 11:41 by DOCTOR UNKNOWN) Other Cerebrovascular accident Family history of arthritis Family history of thyroid disease Hypertension Social History Social History Smoking status: Never smoker Alcohol intake: never Exam Narrative: GENERAL: Ill-appearing, well-nourished, and in moderate distress. HEAD: Normocephalic, swelling and discoloration left face specially periorbital from lying on the ground. EYES: PERRL and EOMI. ENT: Mucous membranes moist.. CHEST: Clear to auscultation. No respiratory distress. HEART: Regular rate and rhythm. Normal peripheral pulses. ABDOMEN: Soft, nontender, nondistended. EXTREMITIES: Bends right leg at 90? to be in a position of comfort. Wiggles post feet without issue. Will not move the left upper extremity in keeps at top down at her left side. SKIN: Warm, dry, no rash. NEURO: Alert and oriented x2. Course Course Emergency Course: Patient with thalamic bleed with intraventricular extension and early reactive hydrocephalus. Chart review shows Plavix that was prescribed in May. Patient received 2 units of platelets for emergency release. She is also being started on a Cardene drip to keep the goal blood pressure at 140 systolic. Patient has been accepted at [facility]. I have spoken with Dr. Rubalcava with Stroke and Dr. Canada in the ER. Patient is considered a time critical transport and will be taken by air medical transport. Patient's unavailable as he that down her sister's been at the bedside helping with decision making. Patient with also recent diagnosis of influenza and Tamiflu as prescribed on 08/09/2024 Vital Signs Vital signs: Vital Signs Temperature 99 F 08/17/24 10:07 Pulse Rate 65 08/17/24 10:07 Respiratory Rate 15 08/17/24 10:07 Blood Pressure 145/90 H 08/17/24 10:07 Pulse Oximetry 100 08/17/24 10:07 Oxygen Delivery Room Air 08/17/24 10:07 Temperature 99 F 08/17/24 10:07 Pulse Rate 81 08/17/24 11:00 Respiratory Rate 17 08/17/24 11:00 Blood Pressure 189/99 H 08/17/24 11:00 Pulse Oximetry 100 08/17/24 11:00 Oxygen Delivery Room Air 08/17/24 10:07 MDM - Altered Mental Status Lab Data 08/17/24 10:27 08/17/24 10:26 Labs: Lab Results 08/17/24 08/17/24 Range/Units 10:26 10:27 WBC 9.3 (4.5-10.0) K/mm3 RBC 4.43 (4.2-5.4) M/mm3 Hgb 13.0 (12.0-15.0) g/dL Hct 40.1 (37.0-47.0) % MCV 90.5 (80-100) fl MCH 29.3 (26-34) pg MCHC 32.4 (32-36) g/dl RDW 12.4 (11.5-14.5) % Plt Count 315 (150-375) k/mm3 MPV 9.2 (7.4-10.4) fl Immature Gran % (Auto) 0.2 (0-0.5) % Neut % (Auto) 83.6 H (45.5-73.1) % Lymph % (Auto) 10.2 L (18.3-44.2) % [place] % (Auto) 5.7 (2.6-8.5) % Eos % (Auto) 0.1 (0-4.4) % Baso % (Auto) 0.2 (0.2-1.2) % Lymph # (Auto) 0.94 (0.9-3.2) K/mm3 [place] # (Auto) 0.5 (0.1-0.6) K/mm3 Eos # (Auto) 0.0 (0-0.3) K/mm3 Baso # (Auto) 0.0 (0.0-0.1) K/mm3 Abs Immat Gran (auto) 0.02 (0.00-0.031) K/mm3 Absolute Neuts (auto) 7.7 H (1.3-6.7) K/mm3 Absolute Nucleated RBC 0.000 (0.0-0.012) K/mm3 Nucleated RBC % 0.0 (0.0-0.2) % PT 13.5 (11.1-14.7) Seconds INR 1.0 APTT 22.6 (22.3-36.8) Seconds Sodium 138 (137-145) mmol/L Potassium 3.8 (3.4-5.0) mmol/L Chloride 102 (98-107) mmol/L Carbon Dioxide 26 (22-30) mmol/L Anion Gap 10 (4-12) mmol/L BUN 20 H (7-17) mg/dL Creatinine 0.61 L (0.7-1.0) mg/dL Estim Creat Clear Calc 80 ml/min Estimated GFR > 60 (59 - ) Glucose 134 H (65-110) mg/dL Calcium 9.2 (8.4-10.2) mg/dL Total Bilirubin 0.6 (0.2-1.3) mg/dL AST 27 (14-36) U/L ALT 21 (6-35) U/L Alkaline Phosphatase 107 (38-126) U/L Total Creatine Kinase Pending Total Protein 7.0 (6.3-8.2) g/dL Albumin 4.2 (3.5-5.1) g/dL Urine Color Yellow (Yellow) Urine Appearance Clear (Clear) Urine pH 7.0 (5.0-9.0) Ur Specific [place] 1.015 (1.001-1.035) Urine Protein Negative (Negative) mg/dL Urine Glucose (UA) Negative (Negative) mg/dL Urine Ketones Negative (Negative) mg/dL Ur Blood (Man) Negative (Negative) Urine Nitrate Negative (Negative) Urine Bilirubin Negative (Negative) Urine Urobilinogen 1.0 (<2.0) mg/dL Leukocyte Esterase Rfl Negative (Negative) TANISHA/UL Influenza A (RT-PCR) Pending Influenza B (RT-PCR) Pending RSV (RT-PCR) Pending SARS-CoV-2 RNA (RT-PCR) Pending Imaging Data Radiologist's impression: ITS Impressions Head CT 08/17/24 10:57 Impression: Acute intraparenchymal hematoma the right thalamus/basal ganglia with additional extensive acute intraventricular hemorrhage, as detailed above. No definite midline shift. Probable early reactive hydrocephalus. Case discussed with Dr. Pompa at the time of this reading. ECG Data EKG #1: ECG completion date: 08/17/24 ECG completion time: 10:23 EKG Interpretation: normal rate (65), sinus rhythm, no ST changes, normal QRS, normal QT and NL axis Discharge Plan Discharge Clinical Impression: Thalamic hemorrhage, Influenza A Patient Disposition: Acute Care Hospital Condition: Serious Patient Language: Swedish Follow-up/Referrals: UNKNOWN,DOCTOR [Primary Care Provider] -
[2024-08-17 11:10] LABS: Influenza A QL RT-PCR Positive (Negative); Influenza B QL RT-PCR Negative (Negative); RSV RNA, RT-PCR Negative (Negative); SARS-CoV-2 RNA PCR Negative (Negative)
[2024-08-17 11:13] LABS: Creatine Kinase 299 U/L (30-135)
[2024-08-17] MEDS: niCARdipine 20 MG/200 ML 20 MG/200 ML BAG 50 MG IV CONT (11:13)
[2024-08-17] MEDS: SODIUM CHLORIDE 0.9% IV 250 ML 30 ML IV CONT (11:37)
--- NOTE | 2024-08-17 12:30 | PC.NURSE ---
pt leaves ED at 1230 via [facility] with Nicardipine still infusing. c-collar intact for transport. family takes patient belongings.
== END 2024-08-17 12:30 | disposition short-term general hospital (02) ==
PROVIDERS: Emergency Provider Emergency Medicine
DX: I61.0 Nontraumatic intracerebral hemorrhage in hemisphere, subcortical (principal); J10.1 Influenza due to other identified influenza virus with other respiratory manifestations; Z20.822 Contact with and (suspected) exposure to COVID-19; I25.10 Atherosclerotic heart disease of native coronary artery without angina pectoris; I10 Essential (primary) hypertension; E78.5 Hyperlipidemia, unspecified; E03.9 Hypothyroidism, unspecified; Z98.61 Coronary angioplasty status; Z79.02 Long term (current) use of antithrombotics/antiplatelets; R94.31 Abnormal electrocardiogram [ECG] [EKG]; R91.8 Other nonspecific abnormal finding of lung field
CPT/HCPCS: 36415; 36430; 70450; 71045; 80053; 81003; 82550; 85025; 85610; 85730; 86900; 86901; 87637; 93005; 96361; 96365; 99285; J2404; J7030; J7050; L0140; P9034

== ENCOUNTER 2025-05-01 09:21 | Observation (INO) | payer BC, MEDICARE, SELFPAY ==
[2025-05-01] VITALS (9 sets, daily range): BP systolic 119–153; BP diastolic 46–69; PULSE 59–70; RESP 15–20; TEMP 36.5–36.6; O2SAT 93–100; BMI 29.6; BMI 29.7
--- NOTE | ~2025-05-01 | XR_ITS ---
EXAMINATION: XR chest 1V portable COMPARISON: No comparisons available. HISTORY: severe franco FINDINGS: The lungs are clear, no effusion. No pneumothorax. Heart is normal size. Mediastinal and hilar contours are within normal limits. Bony thorax no acute abnormality. Miscellaneous: None Impression: No acute cardiopulmonary abnormality. Reviewed, dictated and finalized at location P. DHOOD TEACHER Impression: No acute cardiopulmonary abnormality.
--- NOTE | ~2025-05-01 | CT_ITS ---
EXAMINATION: CTA BRAIN/CAROTID DATE: 05/01/2025 09:50 INDICATION: Prior intracranial hemorrhage presenting with left eye pain and visual deficits TECHNIQUE: Computed tomographic angiography (CTA) of the head and neck was performed with 100 mL Omnipaque-350 intravenous contrast. Multiplanar reconstructions and maximum intensity projection 3D-reconstructions of the carotid arteries and of the intracranial arteries were created by the technologist on a separate workstation. Automated exposure control and iterative reconstruction technique were employed.The dose-length product was 1023.81 mGy-cm. COMPARISON: None. FINDINGS: Intracranial arteries Vertebral arteries are codominant. Atherosclerotic calcifications without hematoma significant stenosis at the bilateral vertebral arteries and at the bilateral carotid siphons. There is no hemodynamically significant stenosis in the vertebral, basilar and internal carotid arteries. Both A1 and P1 segments are patent. There are no aneurysms identified. Cerebral arterial arborization appears symmetric. Bilateral ophthalmic arteries appear normal and symmetric. Carotid arteries: The aortic arch and the great vessels arising from the arch are normal in caliber with no dissection or hemodynamically significant stenosis. There is no evident atherosclerotic plaque with 0% stenosis of the right carotid bulb relative to normal distal artery lumen diameter (NASCET criteria). There is small amount of calcified atherosclerotic plaque with 0% stenosis of the left carotid bulb relative to normal distal artery lumen diameter. Postoperative change of prior thyroidectomy. Moderate cervical spondylosis with C6-C7 anterior spinal fusion with interbody bone graft cages and anterior plate-screw fixation. Multilevel severe cervical facet osteoarthritis with solid osseous fusion across many of the bilateral cervical facet joints. IMPRESSION: 1. No evident atherosclerotic plaque with 0% stenosis of the right carotid bulb relative to normal distal artery lumen diameter (NASCET criteria). 2. Small amount of atherosclerotic plaque with 0% stenosis of the left carotid bulb relative to normal distal artery lumen diameter. 3. Nonhemodynamically significant atherosclerotic plaque along the bilateral vertebral arteries and at the bilateral carotid siphons. No evident cerebral arterial hemodynamically significant stenosis, aneurysm or thrombosis. Reviewed, dictated and finalized at location A. ARCH SPECIALIST IMPRESSION: 1. No evident atherosclerotic plaque with 0% stenosis of the right carotid bulb relative to normal distal artery lumen diameter (NASCET criteria). 2. Small amount of atherosclerotic plaque with 0% stenosis of the left carotid bulb relative to normal distal artery lumen diameter. 3. Nonhemodynamically significant atherosclerotic plaque along the bilateral ve rtebral arteries and at the bilateral carotid siphons. No evident cerebral wily rial hemodynamically significant stenosis, aneurysm or thrombosis.
--- NOTE | ~2025-05-01 | CT_ITS ---
CT HEAD NON-CONTRAST Clinical History: severe franco Comparison: None Technique: Unenhanced axial images skull base to vertex Coronal, sagittal reformats CT images acquired with automatic exposure control for dose reduction DLP: 08/17/2024 mGy-cm Findings: No intracerebral hemorrhage. Right thalamic encephalomalacia. White matter changes from chronic microvascular ischemic disease. Sulci, ventricles: Unremarkable. No evidence acute territorial infarct. No mass effect, midline shift. Left frontal aniya hole. Visualized paranasal sinuses: Clear. Mastoid air cells: Clear. IMPRESSION: 1. No acute intracranial findings. Reviewed, dictated and finalized at location R. NICAL ACCOUNT EXECUTIVE
--- NOTE | ~2025-05-01 | MR_ITS ---
EXAMINATION: MR brain/brain stem wo con DATE: 05/02/2025 15:29 INDICATION: Severe pain. Numbness to the mouth. Visual field deficits. TECHNIQUE: Magnetic resonance imaging (MRI) of the brain and brainstem was performed without intravenous contrast. Sequences included sagittal and axial T1-weighted SE, axial diffusion-weighted FS EPI, axial T2*-weighted GRE, axial T2-weighted FLAIR Propeller, and axial T2-weighted Propeller. Small fie ld-of-view sequences of the orbits included coronal and axial T2-weighted FS FSE and T1-weighted FSE. Apparent diffusion coefficient (ADC) maps were created. COMPARISON: CT dated 05/01/2025 and brain MR dated 01/24/2010 FINDINGS: There are no areas of restricted diffusion to suggest acute infarction. There is small region of small region of encephalomalacia with peripheral susceptibility artifact centered at the right thalamus consistent with sequela of prior intraparenchymal hemorrhage which is visible on CT dated 08/17/2024. No acute intracranial hemorrhage or abnormal intracranial mass lesion. There are scattered areas of nonspecific increased T2-weighted signal intensity in the cerebral white matter, predominantly involving the deep and periventricular white matter. There are no intraparenchymal signal abnormalities seen on the other pulse sequences. The ventricles are symmetric and normal in size. There are no abnormal extra-axial fluid collections. Flow voids are seen in the cerebral arteries on the T2-weighted sequences consistent with their expected patency. Mild mucosal thickening in the paranasal sinuses. Visualized orbits and soft tissues are unremarkable. IMPRESSION: 1. Encephalomalacia in the right thalamus consistent with sequela of prior intraparenchymal hemorrhage. No acute intracranial process. 2. Mild scattered periventricular predominant nonspecific cerebral white matter T2 hyperintensity consistent with chronic small vessel ischemic disease. Reviewed, dictated and finalized at location A. B TRAINER IMPRESSION: 1. Encephalomalacia in the right thalamus consistent with sequela of prior intr aparenchymal hemorrhage. No acute intracranial process. 2. Mild scattered periventricular predominant nonspecific cerebral white matter T2 hyperintensity consistent with chronic small vessel ischemic disease.
--- NOTE | 2025-05-01 09:34 | ECG_ITS ---
Test Date: 2025-05-01 09:54:35 Measurements Intervals [employer] Rate: 62 P: 38 [place]: 161 QRS: 14 QRSD: 93 T: 41 QT: 421 QTc: 431 Interpretive Statements SINUS RHYTHM Compared to ECG 08/17/2024 10:23:25 No significant changes Electronically Signed On 05-01-2025 21:21:43 [employer] by Macrina Mensah M.D.
[2025-05-01 09:51] LABS: Hematocrit 31.6 % (37.0-47.0); Hemoglobin 9.5 g/dL (12.0-15.0); Immature Granulocyte Percent A 0.3 % (0-0.5); Lymphocytes Absolute Auto 1.54 K/mm3 (0.9-3.2); Mean Corpuscular HGB Conc 30.1 g/dl (32-36); Mean Corpuscular Hemoglobin 26.2 pg (26-34); Mean Corpuscular Volume 87.3 fl (80-100); Nucleated Red Blood Cells Absolute Auto 0.000 K/mm3 (0.0-0.012); Nucleated Red Blood Cells Perc 0.0 % (0.0-0.2); Platelet Count Result 305 k/mm3 (150-375); Red Blood Count 3.62 M/mm3 (4.2-5.4); White Blood Count 7.6 K/mm3 (4.5-10.0)
[2025-05-01 10:04] LABS: Alanine Aminotransferase 15 U/L (6-35); Albumin Level 3.9 g/dL (3.5-5.1); Alkaline Phosphatase 88 U/L (38-126); Anion Gap 7 mmol/L (4-12); Aspartate Amino Transferase 25 U/L (14-36); Bilirubin,Total 0.6 mg/dL (0.2-1.3); Blood Urea Nitrogen 25 mg/dL (7-17); Calcium 9.1 mg/dL (8.4-10.2); Carbon Dioxide 27 mmol/L (22-30); Chloride 107 mmol/L (98-107); Estimated CRCL calculation 63 ml/min; Estimated Glomerular Filt Rate > 60; Glucose 99 mg/dL (65-110); Potassium 4.3 mmol/L (3.4-5.0); Sodium 141 mmol/L (137-145); Total Protein 6.9 g/dL (6.3-8.2)
[2025-05-01 10:09] LABS: INR 1.1; Prothrombin Time 14.3 Seconds (11.1-14.7)
[2025-05-01 10:10] LABS: Partial Thromboplastin Time 25.5 Seconds (22.3-36.8)
[2025-05-01 10:15] LABS: Troponin I < 0.012 ng/mL (0.000-0.034)
--- OUTSIDE RECORDS SUMMARY | 2025-05-01 10:26 | XMS_ITS | Clinical Summary ---
Author Organization [facility] al Address [address] [place] [address] Care Team Providers Care Flat Knitter Helper Name Role Phone Kevon Gaytan MD Unavailable [phone] Anirudh Pena MD Unavailable [phone] Florentino Hood MD Primary Care Provider [phone] Rivas Mcdermott Unavailable [phone] Hema Shelby MD Unavailable [phone] Allergies Active Allergy Reactions Criticality Noted Date Comments Acetaminophen-Codeine Nausea & Vomiting,Nausea And Vomiting Medium 02/20/2014 N/V and off balance Amlodipine Swollen tongue,Angioedema High 07/20/2016 Codeine Nausea & Vomiting,Other (See comments),Nausea And Vomiting High 11/20/2008 Oversedation Duloxetine Mental status changes Low 01/03/2025 Fentanyl Anaphylaxis,Shortne ss of breath,Other (See comments) High 02/22/2014 Pt coded Oversedation Horseradish Swelling,Anaphylaxi s High 02/20/2014 Throat swelling Hydrocodone Other (See comments) Low 06/08/2018 Over sedation Hydromorphone Other (See comments) High 03/09/2014 Decreased breathing Oversedation Isosorbide Headache,Angioedema High 06/23/2017 Isosorbide Mononitrate Edema,Hypotension High 2016 Morphine Other (See comments) High 08/07/2013 Over sedation Oversedation Opioids - Morphine Analogues Other (See comments) High Over sedation Oxycodone Other (See comments) High 06/11/2016 Over sedation Oversedation Prochlorperazine Angioedema High Propoxyphene Other (See comments) High 03/09/2014 Over sedation Propoxyphene-Acetaminophen Shortness of breath,Other (See comments) High 11/20/2008 Over sedation Oversedation Medications cyanocobalamin (Vitamin B-12) 1,[address] 1 tablet (1,000 mcg total) under the tongue every morning 07/04/19 16 Active levothyroxine (SYNTHROID) 300 mcg tabletIndications: hypothyroidism Take 1 tablet (300 mcg total) by mouth cabinet professional before breakfast 10/28/19 22 Active vitamin D3-vitamin K2 25 mcg (1,000 unit)-90 mcg tablet,disintegrat ingIndications:Sup plement Take 1 tablet by mouth every morning Active nitroglycerin (NITROSTAT) 0.4 mg SL tabletIndications: Chest pain, unspecified type Take 1 tablet (0.4 mg total) by mouth every 5 (five) minutes as needed for chest pain 25 tablet 06/01/20 24 Active evolocumab (Repatha SureClick) 140 mg/mL pen injector Inject 1 mL (140 mg total) under the skin every 2 (two) weeks 6 mL 3 07/26/19 25 Active acetaminophen (TYLENOL) 500 mg tablet Take 2 tablets (1,000 mg total) by mouth 3 (three) times a day 0900,1400 & 2100 Knee pain Active ondansetron (ZOFRAN) 4 mg tablet Take 1 tablet (4 mg total) by mouth every 8 (eight) hours as needed for nausea or vomiting Active meclizine (ANTIVERT) 12.5 mg tablet Take 1 tablet (12.5 mg total) by mouth 3 (three) times a day as needed for dizziness Active tamsulosin (FLOMAX) 0.4 mg extended release capsule Take 1 capsule (0.4 mg total) by mouth nightly Active lidocaine (LMX) 4 % cream Apply 2.5 g (1 Application total) topically 2 (two) times a day as needed for pain (sore on buttocks) Active albuterol HFA (PROVENTIL HFA,VENTOLIN HFA,PROAIR HFA) 90 mcg/actuation inhaler Inhale 2 puffs every 8 (eight) hours as needed for wheezing Active ergocalciferol (VITAMIN D) 50,000 unit capsule Take 1 capsule (50,000 Units total) by mouth once a week Mondays10/10/19 25 Active metoprolol XL (TOPROL-XL) 25 mg extended release tablet Take 3 tablets (75 mg total) by mouth nightly 10/10/19 25 Active apixaban (ELIQUIS) 5 mg tabletIndications: deep venous thrombosis Take 2 tablets (10 mg total) by mouth 2 (two) times a day for 5 days, THEN 1 tablet (5 mg total) 2 (two) times a day. 10/10/[address] (PROTONIX) 40 mg EC tabletIndications: gerd Take 1 tablet (40 mg total) by mouth daily 30 tablet 2 10/11/19 25 Active QUEtiapine (SEROquel) 25 mg tablet Take 0.5 tablets (12.5 mg total) by mouth 2 (two) times a day as needed (for anxiety/agitati on, sleep) 30 tablet 10/10/19 25 Active ondansetron ODT (ZOFRAN-ODT) 4 mg disintegrating tablet DISSOLVE 1 TABLET IN MOUTH EVERY 6 HOURS NEEDED FOR NAUSEA FOR VOMITING 09/26/19 25 Active traMADoL (ULTRAM) 50 mg tablet 10/28/19 25 Active aspirin 81 mg enteric coated tablet Take 1 tablet (81 mg total) by mouth daily Active losartan (COZAAR) 50 mg tablet Take 1 tablet (50 mg total) by mouth daily 90 tablet 3 11/23/19 25 026 Active gabapentin (NEURONTIN) 300 mg capsule Take 1 capsule (300 mg total) by mouth 3 (three) times a day as needed (leg pains) For post-herpetic neuralgia: Take 1 tablet on day 1, Then take 2 tablets on day 2, Then take 3 tablets on day 3 and every day after that as instructed by your doctor. 90 capsule 12/05/19 25 Active hydrALAZINE (APRESOLINE) 25 mg tabletIndications: hypertension Take 0.5 tablets (12.5 mg total) by mouth 2 (two) times a day Take an additional 12.5 mg tablet if SBP is greater than 160 mmHg 30 tablet 11 01/06/20 Active Cymbalta 20 mg capsule Take 1 capsule (20 mg total) by mouth every 12 hours Active multivitamin tablet Active torsemide (DEMADEX) 20 mg tablet Take 1 tablet (20 mg total) by mouth every other day 01/15/20 Active Active Problems Patient Care Coordination No te Formatting of this note migh t be different from the original. 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 Had horizontal diplopia at onset which resolved about a month ago, daughter noted one of her eyes was turned in but has since resolved. 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 HVF today very unreliable, possible left superior quadrantanopia, however not picked up on CVF. Likely very mild, not affecting ADLs at this time, will repeat next visit. No RNFL / GCC defects. RTC 1 year for annual exam, sooner with worsening symptoms Pain in both lower extremities 10/05/2024 PTE (pulmonary thromboembolism) 10/05/2024 Acute cystitis without hematuria 10/05/2024 IVH (intraventricular hemorrhage) 08/21/2024 Vasogenic brain edema 08/21/2024 Left-sided weakness 08/17/2024 Nontraumatic intracerebral hemorrhage 08/17/2024 Bilateral renal cysts 08/17/2024 History of placement of stent in LAD coronary ar tomás 08/17/2024 Dizziness 07/24/2024 Renal mass, right 03/16/2024 Assessment [...] (06/16/2021): Added automatically from request for surgery [id number] COVID-19 virus infection 05/23/2021 Prediabetes 05/01/2021 History of thyroidectomy 04/10/2021 Hypothyroidism 03/24/2021 Assessment & Plan (01/26/2024 7:25 PM CDT): Continue home synthroid Primary osteoarthritis of left knee 01/01/2021 Intestinal metaplasia of gastric mucosa 02/07/20 Overview (02/07/2020): Added automatically from request for surgery [id number] Acute upper respiratory infection 11/30/2019 COVID-19 virus infection 11/30/2019 Pre-operative cardiovascular examination 020 Overview (10/27/2019): Added automatically from request for surgery [id number] Sore throat 08/02/2019 Secondary hyperparathyroidism 02/24/2019 Epigastric discomfort 02/03/2019 Overview (02/03/2019): Added automatically from request for surgery [id number] Angiomyolipoma of right kidney 01/23/2019 Complex renal [...] (01/19/2019): Added automatically from request for surgery [id number] Early satiety 01/19/2019 Overview (01/19/2019): Added automatically from request for surgery [id number] History of colon polyps 01/19/2019 Overview (01/20/2019): Added automatically from request for surgery [id number] Abnormal CT scan, sigmoid colon 01/03/2019 Chronic fatigue 11/16/2018 Gastritis 11/16/2018 Shortness of breath 11/16/2018 Sinusitis 10/27/2018 Acute streptococcal pharyngitis 09/28/2018 Weight gain 09/28/2018 Nausea and vomiting 08/18/2018 Parasites in stool 08/18/2018 Coronary artery disease invo lving kobuk coronary artery of [place] heart without angina pectoris 05/05/2018 Overview (05/05/2018): Added automatically from request for surgery [id number] Abnormal EKG 05/05/2018 Overview (05/05/2018): Added automatically from request for surgery [id number] HTN (hypertension), benign 04/30/2018 Assessment & Plan (01/01/2025 11:35 AM CDT): No evidence of ocular involvement at this time. Monitor. Assessment & Plan (03/16/2024 3:38 PM CDT): [...] Plan (03/16/2024 3:35 PM CDT): -resume Synthroid Hypothyroidism, postsurgical 02/21/2014 Cervical disc herniation 02/19/2014 Mixed stress and urge urinary incontinence 01/16 Cystocele without uterine prolapse 08/07/2013 Hyperlipidemia 08/07/2013 Vitamin D deficiency 08/07/2013 Resolved Problems Problem Noted Date Diagnosed Date Resolved Date Chest pain, unspecified type 01/26/2024 01/26/2024 Encounters Date Type Department Care Team Description 04/26/2025 Orders Only [facility] Orthopaedic Surgery [address] [facility] [address] [place] [address] Robert Ledesma Todd Primary osteoarthritis of right hip (Primary Dx); Hip pain, right 04/09/2025 10:15 AM CDT Office Visit [facility] [address] [facility] [address] [place] [id number] Hema Shelby MD PTE (pulmonary thromboembolism) (Primary Dx) 02/07/2025 2:15 PM CDT Office Visit [facility] Cardiology [address] [facility] [address] [place] [address] Kevon Gaytan MD Chest pain, unspecified type (Primary Dx); Coronary artery disease involving kobuk coronary artery of [place] heart without angina pectoris; Benign hypertension 01/31/2025 10:02 AM CDT - 01/31/2025 11:59 PM CDT Hospital Encounter [facility] [address] [facility] [address] [place] [phone] Anuj Shukla MD Hip pain, right Discharge Disposition: Discharge to home or self care 01/29/2025 Telephone Radiology - [address] [facility] [address] [place] [address] Roxi Dawson, RT from Last 3 Months Immunizations Immunization Administration Dates Next Due Tdap 04/26/2019 Surgical History Surgery Date Site/Laterality Comments CHOLECYSTECTOMY 06/28/1984 - 06/27/1985 HYSTERECTOMY 06/28/1984 - 06/27/1985 THYROIDECTOMY 06/28/1998 - 06/27/[address] ENT PLACEMENT 03/04/2017 MADI mid LAD COLONOSCOPY 06/28/2021 - 06/27/[address] ENT PLACEMENT 06/08/2017 MADI to RCA and diagonal vessel APPENDECTOMY 06/28/1967 - 06/27/1968 TOTAL KNEE ARTHROPLASTY 06/28/2014 - 06/27/2015 Right TOTAL KNEE ARTHROPLASTY 06/28/2020 - 06/27/2021 Left CARDIAC CATHETERIZATION 12/10/2021 POLYPECTOMY 06/28/2021 - 06/27/2022 CERVICAL FUSION 06/28/2014 - 06/27/2015 neck fusion SALPINGOOPHORECTOMY 06/28/2012 - 06/27/2013 Bilateral CRYOABLATION RENAL RIGHT 03/16/2024 Right FLUORO GUIDED ASPIRATION OR INJECTION LARGE JOINT RIGHT 01/31/2025 Right Medical History Medical History Date Comments Coronary artery disease CHF (congestive heart failure) (HCC) Myocardial infarction (HCC) Hypertension Diabetes mellitus Thyroid disease Hyperlipidemia Hiatal hernia Chronic gastritis [...] lung disease - (Added by TW Conv) Stroke Father o Family history of stroke - (Added by TW Conv) Cancer Mother o Family history of cancer - (Added by TW Conv) Lung disease Mother o Family history of lung disease - (Added by TW Conv) Colon cancer Sister o Diabetes Sister o Family history of diabetes mellitus - (Added by TW Conv) Anesthesia problems Neg Hx Relation Name Status Comments Father o Mother o Sister o Social History Tobacco Use Types Packs/Day Years Used Date Smoking Tobacco: Never Passive Smoke Exposure: Current Smokeless Tobacco: Never Tobacco Cessation:Counseling Given: Not Answered Alcohol Use Standard Drinks/Week Comments No 0 (1 standard drink = 0.6 oz pur e alcohol) [facility] Utilities Answer Date Recorded In the past 12 months has th e [employer], gas, oil, or water [employer] threatened to shut off services in your home? No 10/07/2024 Social Connection and Isolation Panel Answer Date Recorded In a typical week, how many times do you talk on the phone with family, friends, or neighbors? Three times a week 10/07/2024 How often do you get togethe r with friends or relatives? Three times a week 10/07/2024 How often do you attend [facility] or catholic services? More than 4 times per year 10/07/2024 Do you belong to any clubs o r organizations such as confucianist groups, unions, fraternal or athletic groups, or school groups? No 10/07/2024 How often do you attend meet ings of the clubs or organizations you belong to? Never 10/07/2024 Are you , , di vorced, , never , or living with a partner? 10/07/2024 AUDIT-C Answer Date Recorded Q1: How often do you have a drink containing alcohol? Never 03/16/2024 Q2: How many drinks containi ng alcohol do you have on a typical day when you are drinking? Patient does not drink Q3: How often do you have si x or more drinks on one occasion? Never 03/16/2024 Overall Financial Resource Strain (CARDIA) Answe r Date Recorded How hard is it for you to pa y for the very basics like food, housing, medical care, and heating? Not very hard 10/07/2024 PHQ-2 Answer Date Recorded PHQ-2 Total Score (If total score is 3 or more points, staff should administer the PHQ-9) 0 10/05/2024 Hunger Vital Sign Answer Date Recorded Within the past 12 months, y ou worried that your food would run out before you got the money to buy more. Never true 10/08/19 25 Within the past 12 months, t he food you bought just didn't last and you didn't have money to get more. Never true 10/07/2024 PRAPARE - Transportation Answer Date Re corded In the past 12 months, has l ack of transportation kept you from medical appointments or from getting medications? No 09/26 In the past 12 months, has l ack of transportation kept you from meetings, work, or from getting things needed for daily living? No 10/07/2024 Housing Stability Vital Sign Answer Sam e Recorded In the last 12 months, was t here a time when you were not able to pay the mortgage or rent on time? No 10/07/2024 In the past 12 months, how m any times have you moved where you were living? 0 10/07/2024 At any time in the past 12 m [facility], were you homeless or living in a detention (including now)? No 10/07/2024 Personal Safety Answer Date Recorded Have you ever been in or are you currently in a harmful physical or emotional relationship or is someone making you feel afraid or unsafe? 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 Gender Identity Not on file Sexual Orientation [...] Sign Reading Time Taken Comments Blood Pressure 125/73 02/07/2025 2:52 PM CDT Pulse 60 02/07/2025 2:52 PM CDT Temperature 36.8 C (98.2 F) 02/07/2025 2:52 PM CDT Respiratory Rate 19 01/03/2025 8:00 PM CDT Oxygen Saturation 99% 02/07/2025 2:52 PM CDT Inhaled Oxygen Concentration - - Weight 84.1 kg (185 lb 6.4 oz) 02/07/2025 2:52 P M CDT Height 172.7 cm (5' 8) 02/07/2025 2:52 PM CDT Body Mass Index 28.19 02/07/2025 2:52 PM CDT Plan of Treatment Health Maintenance Due Date Last Done Comments Hepatitis C Screening 1955 Osteoporosis Screening-Bone Density Scan 1955 Hepatitis B Screening 11/16/1975 Pneumococcal vaccine 65+ (1 of 2 - PCV) 1976 Zoster Vaccine (1 of 2) 11/16/2007 Breast Cancer Screening-Mammogram 08/28/2014 014 Well Visit 65+ 2022 Influenza Vaccine (#1) 2025 Depression Screening 10/05/2025 10/05/2024 Fall Risk Assessment 10/12/2025 10/12/2024, 06/25/20 DTaP/Tdap/Td Vaccine (2 - Td or [...] home safety. Medical Devices Implanted Type Area Dispatcher Maintenance Service Device Identifier Shelf Expiration Date Model / Serial / Lot Stent Implanted:Qty: 5 on 12/07/2012 Stent N/A: Coronary Artery Cervical Spine Ortho Hardware (Cage) Spine Cervical Rt Total Knee Arthroplasty- Implanted:11/07 (Quantity not on file) Right: Knee [employer] [id number] Attune Cemented Posterior Stabilize Knee Left 5 Component Femoral - [id number] Implanted:Qty: 1 on 05/07/2021 by Roney Saldaña MD at [facility] Left: Knee [employer] [id number] / / [employer] [id number] Attune S+ Cement Fix Bearing Knee 5 Baseplate Tibial - [id number] Implanted:Qty: 1 on 05/07/2021 by Roney Saldaña MD at [facility] Left: Knee [employer] [id number] / / [employer] 6197-9-010 Simplex P Full Dose Radiopaque Preblend Cement Bone Tobramycin - [id number] Implanted:Qty: 1 on 05/07/2021 by Roney Saldaña MD at [facility] Left: Knee [employer] [id number] / / [employer] 6197-9- Simplex P Full Dose Radiopaque Preblend Cement Bone Tobramycin - [id number] Implanted:Qty: 1 on 05/07/2021 by Roney Saldaña MD at [facility] Left: Knee [employer] [id number] / / [employer] 6197-9 Simplex P Full Dose Radiopaque Preblend Cement Bone Tobramycin - [id number] Implanted:Qty: 1 on 05/07/2021 by Roney Saldaña MD at [facility] Left: Knee [employer] [id number] 6197-9 / / [employer] [id number] Attune 6mm Posterior Stabilize Fix Bearing Knee 5 Insert Tibial - [id number] Implanted:Qty: 1 on 05/07/2021 by Roney Saldaña MD at [facility] Left: Knee [employer] [id number] / / Procedures Procedure Name Priority Date/Time Associated Diagnosis Comments ECG 12-LEAD Routine 02/07/2025 3:09 PM CDT Chest pain, unspecified type FLUORO GUIDED ASPIRATION OR INJECTION LARGE JOINT RIGHT Schedule Routine, Read Routine (OP Routine) 01/31/2025 10:40 AM CDT Hip pain, right COLONOSCOPY 04/01/2022 10:41 AM CDT from Last 3 Months or Most Recently Relevant to Health Maintenance Results * ECG 12 lead (02/07/2025 3:09 PM CDT) us Kevon Gaytan MD ECG ORDERABLES Final Result * FL Fluoro Guided Aspiration or Injection Large Joint Right (01/31/2025 10:40 AM CDT) Narrative [facility] - 01/31/2025 11:42 AM CDT The images from this study are not interpreted by Radiology. Please refer to the physician's procedure / OR operative note. us Brenna Whatley NP IMG FLUOROSCOPY PROCEDURE S Final Result [facility] * COLONOSCOPY (04/01/2022 10:41 AM CDT) Anatomical Region Laterality Modality Other Narrative Procedure Note Mando Bonilla MD - 04/01/2022 10:41 AM CDT ENDOSCOPY LAB Patient Name: Sarah Marques Procedure Date: 04/01/2022 10:41 AM Date of : 1955 Admit Type: Outpatient Age: 66 Gender: Female Attending MD: Mando Bonilla M.D. Room: [facility] ENDOSCOPY ROOM 03 Note Status: Finalized [...] The scope was passed under direct vision.The [id number] was introduced through the anusand advanced to [...] business hours - Please call theNurse Coordinator: [phone] After hours, evening, nights, weekends and holidays- Please call the hospital checkering machine operator at and ask for the GI fellow supervisor fabrication department. Attending Participation: I personally performed the entire procedure. Electronically signed by Mando Bonilla MD Mando Bonilla M.D. 04/01/2022 11:02:27 AM Number of Addenda: 0 Note Initiated On: 04/01/2022 10:41 AM Mando Bonilla MD ENDOSCOPY PROCEDURES Final Result from Last 3 Months or Most Recently Relevant to Health Maintenance Insurance [employer] ACCESS OOS MEDICARE [employer] ACCESS OOS MEDICARE [employer] OOS Advance Directives For more information, please contact: [phone] Documents on File Type Date Recorded Patient Volunteer Assistant Expl anation ADVANCE DIRECTIVE 01/14/2019 1:58 PM POWER OF EDUCATION GENERAL MANAGER-FINANCIAL/MEDICAL * Full Code (Latest Code Status on File) Date Activated Date Inactivated Comments 10/05/2024 6:15 PM 10/12/2024 9:36 PM * Full Code Date Activated Date Inactivated Comments 03/16/2024 12:18 PM 03/17/2024 1:51 PM * Full Code Date Activated Date Inactivated Comments 03/16/2024 7:53 AM 03/16/2024 12:18 PM * Full Code Date Activated Date Inactivated Comments 03/16/2024 6:31 AM 03/16/2024 7:53 AM * Full Code Date Activated Date Inactivated Comments 01/26/2024 4:53 PM 01/28/2024 6:33 PM Care Teams Flat Knitter Helper Relationship Specialty Start Date End Date Florentino Hood MD [address] [facility] [place] [address] PCP - General Family Medicine 08/09/23 Kevon Gaytan MD [address] [place] [address] Consulting Physician Cardiology 04/04/21 Anirudh Pena MD [address] [place] [address] Referring Physician Otolaryngology 05/12/23 Rivas Mcdermott PA [address] [place] [address] Physician Affiliate Marketing Manager Neurosurgery 10/09/24 Hema Shelby MD [address] [place] [address] Consulting Physician Pulmonary Disease 10/09/24
--- OUTSIDE RECORDS SUMMARY | 2025-05-01 10:26 | XMS_ITS | Clinical Summary ---
Author Organization [facility] Address [address] [place] [address] Care Team Providers Care Pie Dough Roller Name Role Phone Azucena Peres RN Unavailable [phone] Florentino Hood Primary Care Provider [phone] Source Comments [facility],non-owned Affiliates and Associated Physician Practices is amultiple site organization consisting of ambulatory clinics and hospital sitesin [place], [place] and [place]. This disclosure is being madepursuant to the Care Everywhere program and may not contain all information available regarding this patient. Last updated 18.[facility] Allergies Active Allergy Reactions Criticality Noted Date Comments Acetaminophen-Codeine Nausea and/or Vomiting Medium N/V and off balance Amlodipine Base Angioedema High 07/20/2016 Cochlearia Armoracia Anaphylaxis High 02/20/2014 Codeine Nausea and/or Vomiting,MANAGER SCIENCE Dysfunction High 03/09/2014 Oversedation Propoxyphene N-Apap MANAGER SCIENCE Dysfunction High 03/09/2014 Oversedation Hydromorphone MANAGER SCIENCE Dysfunction High 03/09/2014 Oversedation Fentanyl MANAGER SCIENCE Dysfunction High 03/09/2014 Oversedation Isosorbide Angioedema High 06/23/2017 Morphine MANAGER SCIENCE Dysfunction High 03/09/2014 Oversedation Oxycodone MANAGER SCIENCE Dysfunction High 06/11/2016 Oversedation Prochlorperazine Angioedema High 08/21/2024 Propoxyphene MANAGER SCIENCE Dysfunction High 03/09/2014 Over sedation Medications * Be aware that medications may not be up to date on this document. Alwaysverify current medications with the patient. Jasmin SureClick 140 MG/ML auto-injector Inject 140 (one hundred forty) mg subcutaneously every 14 days Active metoprolol succinate XL 24hr (Toprol XL) 25 MG tablet Take 3 (three) tablets by mouth at bedtime 4 Active nitroGLYCERIN (Nitrostat) 0.4 MG tablet Take 1 (one) tablet by mouth every 5 minutes as needed for Angina 4 Active levothyroxine (Synthroid) 300 MCG tablet Take 1 (one) tablet by mouth daily before breakfast 5 Active acetaminophen (Tylenol) 500 MG tablet Take 2 (two) tablets by mouth every 6 hours as needed for Fever or Pain Maximum allowable Acetaminophen amount = 4 Grams (4000 mg) / 24 hours. 5 Active hydrALAZINE (Apresoline) 25 MG tablet Take 1 (one) tablet by mouth 3 times daily 5 Active ondansetron, disintegrating , (Zofran ODT) 4 MG tablet DISSOLVE 1 TABLET IN MOUTH EVERY 6 HOURS NEEDED FOR NAUSEA FOR VOMITING 5 Active vitamin D, ergocalciferol , (Drisdol) 1.25 MG (97930 UT) capsule TAKE 1 CAPSULE BY MOUTH ONCE A WEEK DIRECTED 5 Active apixaban (Eliquis) 5 MG tablet Take 2 tablets (10 mg total) by mouth 2 (two) times a day for 5 days, THEN 1 tablet (5 mg total) 2 (two) times a day. 5 Active albuterol HFA (Proventil; Ventolin; Proair) 108 (90 Base) MCG/ACT inhaler Inhale 2 (two) puffs by mouth 4 Active escitalopram (Lexapro) 5 MG tablet Take 1 (one) tablet by mouth once daily 5 Active meclizine (Antivert) 12.5 MG tablet Take 1 (one) tablet by mouth 3 times daily as needed Active pantoprazole EC (Protonix) 40 MG tablet Take 1 (one) tablet by mouth once daily 5 Active traMADol (Ultram) 50 MG tablet Active tamsulosin (Flomax) 0.4 MG capsule Take 1 (one) capsule by mouth at bedtime Active HM LIDOCAINE PATCH EX by Apply externally route once daily Active cyanocobalamin (Vitamin B-12) 1000 MCG tablet Take 1 (one) tablet by mouth once daily Active multivitamin daily tablet Take 1 (one) tablet by mouth daily with food Active QUEtiapine (SEROquel) 25 MG tablet Take 0.5 (one-half) tablet by mouth 2 times daily as needed Active Active Problems Problem Noted Date Diagnosed Date IVH (intraventricular hemorrhage) 08/21/2024 Vasogenic brain edema 08/21/2024 Left-sided weakness 08/17/2024 Nontraumatic intracerebral h emorrhage, unspecified cerebral location, unspecified laterality 08/17/2024 Assessment & Plan (11/16/2024 10:52 AM CDT): Latest CT with improvement Saw neurosx 11/01 BP control No further w/u or tx needed Recommend SABINE testing, pt to f/u with her pcp Primary hypertension 08/17/2024 Assessment & Plan (11/16/2024 10:52 AM CDT): Bp better controlled when home values reviewed Continue current regimen and f/u with pcp for routine monitoring and tx History of placement of stent in LAD coronary ar tomás 08/17/2024 CAD (coronary artery disease) 08/17/2024 Hypothyroidism 08/17/2024 Bilateral renal cysts 08/17/2024 Arthrofibrosis of knee joint, left 06/16/2021 Overview (08/21/2024): Added automatically from request for surgery [id number] Prediabetes 05/01/2021 Primary osteoarthritis of left knee 01/01/2021 Intestinal metaplasia of gastric mucosa 02/07/20 Overview (08/21/2024): Added automatically from request for surgery [id number] Gastritis 11/16/2018 Obstructive sleep apnea syndrome 01/22/2017 Hypertensive heart disease with congestive heart failure 01/16/2016 Insomnia 11/27/2014 Cystocele 03/14/2014 Fusion of spine of cervical region 02/22/2014 Hypothyroidism, postsurgical 02/21/2014 Mixed stress and urge urinary incontinence 01/16 Hyperlipidemia 08/07/2013 Resolved Problems Problem Noted Date Diagnosed Date Resolved Date Dizziness 07/24/2024 08/21/2024 Deviated nasal septum 03/11/20232024 Cellulitis of lower limb 12/31/2021 Cough 07/28/2021 08/21/2024 History of thyroidectomy 04/10/2021 Acute upper respiratory infection 11/30/2019 08/21/2024 COVID-19 virus infection 11/30/2019 Angiomyolipoma of right kidney 01/23/2019 08/21/2024 Epigastric pain 01/19/2019 08/21/2024 Overview (08/21/2024): Added automatically from request for surgery [id number] History of colon polyps 01/19/201907/30 Overview (08/21/2024): Added automatically from request for surgery [id number] Chronic fatigue 11/16/2018 08/21/2024 Acute streptococcal pharyngitis 09/28/2018 08/21/2024 Nausea and vomiting 08/18/2018 08/21/19 Parasites in stool 08/18/2018 Angina pectoris 03/26/2017 08/21/2024 History of cardiac catheterization 01/22/2017 08/21/2024 Hypokalemia 12/23/2016 08/21/2024 Temporary cerebral vascular dysfunction 06/11/2016 08/21/2024 Dyslipidemia 01/19/2016 08/21/2024 Obesity 01/19/2016 08/21/2024 Hypocalcemia 08/29/2014 08/21/2024 Cervical disc herniation 02/19/2014 Family History Medical History Relation Name Comments [...] you have a drink containing alcohol? Never 08/17/2024 Q2: How many drinks containi ng alcohol do you have on a typical day when you are drinking? Patient does not drink Q3: How often do you have si x or more drinks on one occasion? Never 08/17/2024 Overall Financial Resource Strain (CARDIA) Answe r Date Recorded How hard is it for you to pa y for the very basics like food, housing, medical care, and heating? Not hard at all 08/17/2024 PHQ-2 Answer Date Recorded Patient Health Questionnaire-2 Score 0 08/31/2024 [facility] [place] [facility] Occupat ional Health - Occupational Stress Questionnaire Answer Date Recorded Do you feel stress - tense, restless, nervous, or anxious, or unable to sleep at night because your mind is troubled all the time - these days? Not at all 08/17/2024 Hunger Vital Sign Answer Date Recorded Within the past 12 months, y ou worried that your food would run out before you got the money to buy more. Never true 08/17/19 Within the past 12 months, t he food you bought just didn't last and you didn't have money to get more. Never true 08/17/2024 PRAPARE - Transportation Answer Date Re corded In the past 12 months, has l ack of transportation kept you from medical appointments or from getting medications? No 07/30 In the past 12 months, has l ack of transportation kept you from meetings, work, or from getting things needed for daily living? No 08/17/2024 Housing Stability Vital Sign Answer Sam e Recorded In the last 12 months, was t here a time when you were not able to pay the mortgage or rent on time? No 08/17/2024 Number of Times Moved in the Last Year Not on fi le 08/17/2024 At any time in the past 12 m [facility], were you homeless or living in a nursing home (including now)? No 08/17/2024 Comments No Sex and Gender Information Value Date Recorded Sex Assigned at Not on file Legal Sex Female 2:33 PM CDT Gender Identity Not on file Sexual Orientation Not on file Last Filed Vital Signs Vital Sign Reading Time Taken Comments Blood Pressure 128/75 11/01/2024 3:33 PM CDT Pulse 59 11/01/2024 3:33 PM CDT Temperature 36.5 C (97.7 F) 11/01/2024 3:33 PM CDT Respiratory Rate 18 09/01/2024 5:11 AM WALLPAPER HANGER Oxygen Saturation 94% 11/01/2024 3:33 PM CDT Inhaled Oxygen Concentration - - Weight 84.8 kg (187 lb) 11/01/2024 3:33 PM CDT Height 170.2 cm (5' 7) 11/01/2024 3:33 PM CDT Body Mass Index 29.29 11/01/2024 3:33 PM CDT Plan of Treatment Health Maintenance Due Date Last Done Comments BONE DENSITY TESTING 1955 COLOGUARD (AGES 45-75) - COLON CA SCREENING 1957 CT COLONOGRAPHY - COLON CA SCREENING 1957 FIT - COLON CA SCREENING 1957 FLEX SIG - COLON CA SCREENING 1955 MEDICARE AWV 12 MONTHS 1957 HEPATITIS C SCREENING 11/11/1975 DTAP/TDAP/TD VACCINES (1 - Tdap) 1976 PNEUMOCOCCAL VACCINE 50+ (1 of 1 - PCV) 11/16/2007 ZOSTER VACCINE (1 of 2) 11/16/2007 MAMMOGRAM 08/29/2015 08/28/2013, 08/28/2013 Respiratory Syncytial Virus (RSV) Vaccine Pt: or over 60 yrs (1 - Risk 60-74 years 1-dose series) 2017 COVID-19 VACCINE ( - season) 2025 INFLUENZA VACCINE (#1) 2025 SCREENING FOR DIABETES 09/02/2027 , 09/01/2024, 09/01/2024, Additional history exists COLON MONITORING 04/01/2032 04/01/2022 COLONOSCOPY - COLON CA SCREENING 04/01/2032 04/01/2022 Colorectal Cancer Screening 04/01/2032 DEPRESSION SCREENING Completed 08/17/2024 HEPATITIS B VACCINE Aged Out No longe r eligible based on patient's age to complete this topic HIB VACCINE Aged Out No longer eligi ble based on patient's age to complete this topic HPV VACCINE Aged Out No longer eligi ble based on patient's age to complete this topic MENINGOCOCCAL (Group B) VACCINE SHARED DECISION-MAKING Aged Out No longer eligible based on patient's age to complete this topic MENINGOCOCCAL GROUPS A/C/Y/W VACCINE Aged Out No longer eligible based on patient's age to complete this topic Medical Devices Implanted Type Area Batch Operator Device Identifier Shelf Expiration Date Model / Serial / Lot Grnyla Tiss Rep Xenform 4 X 7cm Implanted:Qty: 1 on 03/14/2014 by Anirudh Payton MD at [facility] [employer] 03/27/2016 [id number] / / [id number] Procedures Procedure Name Priority Date/Time Associated Diagnosis Comments GLUCOSE - POINT OF CARE Routine 09/01/2024 12:07 AM WALLPAPER HANGER from Last 3 Months or Most Recently Relevant to Health Maintenance Results * (ABNORMAL) GLUCOSE - POINT OF CARE (09/01/2024 12:07 AM WALLPAPER HANGER) [facility] Glucose WB/POC 148(H) 70 - 99 mg/dL 09/01/2024 4:31 AM WALLPAPER HANGER [facility] Specimen Type Cap Fingerstick 2024 4:31 AM WALLPAPER HANGER [facility] Blood BLOOD SPECIMEN / Unknown 09/01/2024 12:07 AM WALLPAPER HANGER 09/01/2024 4:31 AM WALLPAPER HANGER Darryl Osullivan MD LAB - POINT OF CARE ORDERABLES Final Result [facility] [address] [place] [address], [facility] [phone] from Last 3 Months or Most Recently Relevant to Health Maintenance Insurance MEDICARE ANTHEM Advance Directives Documents on File Type Date Recorded Patient Squeegeer And Former Expl anation Adv Directive/Living Will/POA 09/04/2024 10:44 AM * Full Code (Latest Code Status on File) Date Activated Date Inactivated Comments 08/17/2024 1:19 PM 09/01/2024 5:57 PM * Full Code Date Activated Date Inactivated Comments 03/14/2014 5:19 PM 03/15/2014 12:59 PM Care Teams Pie Dough Roller Relationship Specialty Start Date End Date Florentino Hood [address] [place] [address] PCP - General 11/01/24 Azucena Peres, CAITLIN Vehicle Return Associate 03/15/14
--- OUTSIDE RECORDS SUMMARY | 2025-05-01 10:26 | XMS_ITS | Encounter Summary ---
Author Organization [facility] Address [address] [place] [address] Phone Care Team Providers Care Wire Winder Name Role Phone Katlyn Jones MD Primary Care Provider [phone] Kevon Gaytan MD Unavailable [phone] Oscar Hood MD Primary Care Provider [phone] Anirudh Pena MD Unavailable Florentino Hood MD Primary Care Provider [phone] Rivas Mcdermott Unavailable [phone] Hema Shelby MD Unavailable [phone] Encounter Details Date Type Department Care Team [...] on file Legal Sex Female 12:18 AM HOST COORDINATOR Gender Identity Not on file Sexual Orientation [...] COVID: Suspected 08/27/2022 08/27/2022 08/27/2022 7:54 PM HOST COORDINATOR COVID: Suspected 07/26/2023 07/26/2023 07/26/2023 6:45 PM HOST COORDINATOR documented as of this encounter Care Teams Wire Winder Relationship Specialty [place] [address] [facility] [address] [place] [address] PCP - General Internal Medicine 04/29/18 05/15/21 Oscar Hood MD [address] [place] [address] PCP - General 05/16/21 08/08/23 Florentino Hood MD [address] [facility] [place] [address] PCP - General Family Medicine 08/09/23 Kevon Gaytan MD [address] [facility] [address] [place] [address] Consulting Physician Cardiology 04/04/21 Anirudh Pena MD [address] [place], [place] [address] Referring Physician Otolaryngology 05/12/23 Rivas Mcdermott PA [address] [place] [address] Physician Rod Mill Tender Neurosurgery 10/09/24 Hema Shelby MD [address] [facility] [address] [place] [address] Consulting Physician Pulmonary Disease 10/09/24 documented as of this encounter
--- OUTSIDE RECORDS SUMMARY | 2025-05-01 10:27 | XMS_ITS | Encounter Summary ---
Author Organization [facility] Healthcare Address [address] [place] [address] Care Team Providers Care Manufacturing Analyst Name Role Phone Katlyn Jones MD Primary Care Provider [phone] Kevon Gaytan MD Unavailable [phone] Oscar Hood MD Primary Care Provider [phone] Anirudh Pena MD Unavailable [phone] Florentino Hood MD Primary Care Provider [phone] Rivas Mcdermott Unavailable [phone] Hema Shelby MD Unavailable [phone] Encounter Details Date Type Department Care Team (Late st Contact Info) Description 03/25/2020 Telephone [facility] [address] [place] [address] Thai Nixon, RT Social History Tobacco Use Types Packs/Day Years Used Date Smoking Tobacco: Never Smokeless Tobacco: Never Alcohol Use Standard Drinks/Week Comments No 0 (1 standard drink = 0.6 oz pur e alcohol) Comments No Sex and Gender Information Value Date Recorded Sex Assigned at Not on file Legal Sex Female 12:18 AM STATE EDITOR Gender Identity Not on file Sexual Orientation [...] COVID: Suspected 08/27/2022 08/27/2022 08/27/2022 7:54 PM STATE EDITOR COVID: Suspected 07/26/2023 07/26/2023 07/26/2023 6:45 PM STATE EDITOR documented as of this encounter Care Teams Manufacturing Analyst Relationship Specialty [place] [address] [facility] [address] [place] [address] PCP - General Internal Medicine 04/29/18 05/15/21 Oscar Hood MD [address] [place] [address] PCP - General 05/16/21 08/08/23 Florentino Hood MD [address] [facility] [place] [address] PCP - General Family Medicine 08/09/23 Kevon Gaytan MD [address] [facility] [address] [place] [address] Consulting Physician Cardiology 04/04/21 Anirudh Pena MD [address] [place], [place] [address] Referring Physician Otolaryngology 05/12/23 Rivas Mcdermott PA [address] [place] [address] Physician Vp Emerging Media Neurosurgery 10/09/24 Hema [place] MD [address] [place] [address] Consulting Physician Pulmonary Disease 10/09/24 documented as of this encounter
--- OUTSIDE RECORDS SUMMARY | 2025-05-01 10:27 | XMS_ITS | Patient Health Record ---
Author Organization [facility] Address [address] [facility] [place] [place] [address] Care Team Providers Care Inspector Aluminum Boat Name Role Phone Katlyn Jones MD Primary Care Provider Unavail able Reason For Referral No Information Plan Of Treatment No Information Insurance Providers Payer Name Payer Address Payer Phone Subscriber Number Group Number Insured Name Patient Relationship to Insured Coverage Start Date Coverage End Date Blue Access Choice PPO E2 [address] [place] [address] [id number] Sarah Justice Spouse - patient is the spouse of the insured
--- OUTSIDE RECORDS SUMMARY | 2025-05-01 10:27 | XMS_ITS | Encounter Summary ---
Author Organization [facility] Address [address] [place] [address] Phone Care Team Providers Care General Ledger Bookkeeper Name Role Phone Kevon Gaytan MD Unavailable [phone] Anirudh Pena MD Unavailable Florentino Hood MD Primary Care Provider [phone] Rivas Mcdermott Unavailable Hema Shelby MD Unavailable [phone] Reason for Referral * Diagnostic Imaging (Routine) - Authorized Specialty Diagnoses / Procedures Referred By Contac t Referred To Contact Diagnoses Primary osteoarthritis of right hip Hip pain, right Procedures FL Fluoro Guided Injection Hip Right Brenna Whatley NP [address] [facility] [address] [address] Phone: tel: fax: [place] [address] [place] [address] Referral ID Status Reason Start Date Expiration Date V isits Requested Visits Authorized [id number] Authorized 04/26/2025 05/26/2026 1 1 Encounter Details Date Type Department Care Team (Late st Contact Info) Description 04/26/2025 Orders Only [facility] Medicine Orthopaedic Surgery [address] [facility] Medical Office Building [address] [place] [address] Robert Ledesma RMA Primary osteoarthritis of right hip (Primary Dx); Hip pain, right Social History Tobacco Use Types Packs/Day Years Used Date Smoking Tobacco: Never Passive Smoke Exposure: Current Smokeless Tobacco: Never Alcohol Use Standard Drinks/Week Comments No 0 (1 standard drink = 0.6 oz pur e alcohol) [facility] Utilities Answer Date Recorded In the past 12 months has th e electric, gas, oil, or water company threatened to shut off services in your home? No 10/07/2024 Social Connection and Isolation Panel Answer Date Recorded In a typical week, how many times do you talk on the phone with family, friends, or neighbors? Three times a week 10/07/2024 How often do you get togethe r with friends or relatives? Three times a week 10/07/2024 How often do you attend [facility] or congregation services? More than 4 times per year 10/07/2024 Do you belong to any clubs o r organizations such as congregational groups, unions, fraternal or athletic groups, or [...] any time in the past 12 m [facility], were you homeless or living in a custodial (including now)? No 10/07/2024 Personal Safety Answer Date Recorded Have you ever been in or are you currently in a harmful physical or emotional relationship or is someone making you feel afraid or unsafe? Denies 01/03/2025 Comments No Sex and Gender Information Value Date Recorded Sex Assigned at Not on file Legal Sex Female 12:18 AM STATISTICAL CLERK ADVERTISING Gender Identity Not on file Sexual Orientation Not on file Occupation Industry Job Start Date Job End Date unemployed Not on file Not on file Not on file documented as of this encounter Plan of Treatment Scheduled Orders Name Type Priority Associated Diagnoses Orde r Schedule FL Fluoro Guided Injection Hip Right Imaging Schedule Routine, Read Routine (OP Routine) Primary osteoarthritis of right hip Hip pain, right Expected: 04/26/2025, Expires: 04/26/2026 documented as of this encounter Goals Goal Patient Goal Type Associated Problems Recent Progress Patient-Stated? Author CCM Chronic Pain Care Plan Chronic Care Management No Katlyn Campa, RN Note: Problem: Chronic Pain Goals: 1. Minimize further functional decline 2. Maximize quality of life 3. Control pain Strategies: - Activity/exercise program recommendation - Conservative stepwise pain medicine strategy with multi-disciplinary approach - Recommend healthy lifestyle strategies and compensatory methods as needed Reduce the likelihood of falling Lifestyle Katlyn Oquendo, RN Note: Below are four things you [...] on stairs Contact your local community or [facility] for information on exercise, fall prevention programs, or options for improving home safety. documented as of this encounter Visit Diagnoses Diagnosis Primary osteoarthritis of right hip- Primary Hip pain, right Pain in joint, pelvic region and thigh documented in this encounter Care Teams General Ledger Bookkeeper Relationship Specialty Start Date End Date Florentino Hood MD [address] [facility] [place] [address] PCP - General Family Medicine 08/09/23 Kevon Gaytan MD [address] [place] [address] [address] Consulting Physician Cardiology 04/04/21 Anirudh Pena MD [address] [address] Referring Physician Otolaryngology 05/12/23 Rivas Mcdermott PA [address] [address] Physician Wax Molder Neurosurgery 10/09/24 Hema [place] MD [address] [address] Consulting Physician Pulmonary Disease 10/09/24 documented as of this encounter
--- OUTSIDE RECORDS SUMMARY | 2025-05-01 10:27 | XMS_ITS | Encounter Summary ---
Author Organization [facility] Healthcare Address [address] [place] [address] Care Team Providers Care Physical Education Specialist Name Role Phone Katlyn Jones MD Primary Care Provider [phone] Kevon Gaytan MD Unavailable [phone] Oscar Hood MD Primary Care Provider [phone] Anirudh Pena MD Unavailable Florentino Hood MD Primary Care Provider [phone] Rivas Mcdermott Unavailable [phone] Hema Shelby MD Unavailable [phone] Encounter Details Date Type Department Care Team (Late st Contact Info) Description 07/02/[address] [facility] Radiology at [facility] Medicine [address] [place] [address] Leatha Truong RDMS Social History Tobacco Use Types Packs/Day Years Used Date Smoking Tobacco: Never Smokeless Tobacco: Never Alcohol Use Standard Drinks/Week Comments No 0 (1 standard drink = 0.6 oz pur e alcohol) Comments No Sex and Gender Information Value Date Recorded Sex Assigned at Not on file Legal Sex Female 12:18 AM JAVA WEB DEVELOPER Gender Identity Not on file Sexual Orientation [...] COVID: Suspected 08/27/2022 08/27/2022 08/27/2022 7:54 PM JAVA WEB DEVELOPER COVID: Suspected 07/26/2023 07/26/2023 07/26/2023 6:45 PM JAVA WEB DEVELOPER documented as of this encounter Care Teams Physical Education Specialist Relationship Specialty [place] [address] [facility] [address] [place] [address] PCP - General Internal Medicine 04/29/18 05/15/21 Oscar Hood MD [address] [place] [address] PCP - General 05/16/21 08/08/23 Florentino Hood MD [address] [facility] [place] [address] PCP - General Family Medicine 08/09/23 Kevon Gaytan MD [address] [facility] [address] [place] [address] Consulting Physician Cardiology 04/04/21 Anirudh Pena MD [address] [place] [address] Referring Physician Otolaryngology 05/12/23 Rivas Mcdermott PA [address] [place] [address] Physician Outside Machinist Helper Neurosurgery 10/09/24 Hema Shelby MD [address] [place] [address] Consulting Physician Pulmonary Disease 10/09/24 documented as of this encounter
--- OUTSIDE RECORDS SUMMARY | 2025-05-01 11:33 | XMS_ITS | Encounter Summary ---
Author Organization [facility] Address [address] [place] [address] Phone Care Team Providers Care Accounts Clerk Name Role Phone Katlyn Jones MD Primary Care Provider [phone] Kevon Gaytan MD Unavailable [phone] Oscar Hood MD Primary Care Provider [phone] Anirudh Pena MD Unavailable Florentino Hood MD Primary Care Provider [phone] Rivas Mcdermott Unavailable [phone] Hema Shelby MD Unavailable [phone] Encounter Details Date Type Department Care Team [...] on file Legal Sex Female 12:18 AM CORPORATE TRAVEL EXPERT Gender Identity Not on file Sexual Orientation [...] COVID: Suspected 08/27/2022 08/27/2022 08/27/2022 7:54 PM CORPORATE TRAVEL EXPERT COVID: Suspected 07/26/2023 07/26/2023 07/26/2023 6:45 PM CORPORATE TRAVEL EXPERT documented as of this encounter Care Teams Accounts Clerk Relationship Specialty [place] [address] [facility] [address] [place] [address] PCP - General Internal Medicine 04/29/18 05/15/21 Oscar Hood MD [address] [place] [address] PCP - General 05/16/21 08/08/23 Florentino Hood MD [address] [facility] [place] [address] PCP - General Family Medicine 08/09/23 Kevon Gaytan MD [address] [facility] [address] [place] [address] Consulting Physician Cardiology 04/04/21 Anirudh Pena MD [address] [place], [place] [address] Referring Physician Otolaryngology 05/12/23 Rivas Mcdermott PA [address] [place] [address] Physician Potato Spotter Neurosurgery 10/09/24 Hema Shelby MD [address] [facility] [address] [place] [address] Consulting Physician Pulmonary Disease 10/09/24 documented as of this encounter
--- OUTSIDE RECORDS SUMMARY | 2025-05-01 11:33 | XMS_ITS | Clinical Summary ---
Author Organization [facility] Address [address] [facility] [place] [address] Care Team Providers Care Director Of Corporate Sales Name Role Phone Azucena Peres RN Unavailable [phone] Florentino Hood Primary Care Provider [phone] Source Comments [facility],non-owned Affiliates and Associated Physician Practices is amultiple site organization consisting of ambulatory clinics and hospital sitesin [place], [place], [place] and [place]. This disclosure is being madepursuant to the Care Everywhere program and may not contain all information available regarding this patient. Last updated 18.[facility] Allergies Active Allergy Reactions Criticality Noted Date Comments Acetaminophen-Codeine Nausea and/or Vomiting Medium N/V and off balance Amlodipine Base Angioedema High 07/20/2016 Cochlearia Armoracia Anaphylaxis High 02/20/2014 Codeine Nausea and/or Vomiting,ROOM SERVER Dysfunction High 03/09/2014 Oversedation Propoxyphene N-Apap ROOM SERVER Dysfunction High 03/09/2014 Oversedation Hydromorphone ROOM SERVER Dysfunction High 03/09/2014 Oversedation Fentanyl ROOM SERVER Dysfunction High 03/09/2014 Oversedation Isosorbide Angioedema High 06/23/2017 Morphine ROOM SERVER Dysfunction High 03/09/2014 Oversedation Oxycodone ROOM SERVER Dysfunction High 06/11/2016 Oversedation Prochlorperazine Angioedema High 08/21/2024 Propoxyphene ROOM SERVER Dysfunction High 03/09/2014 Over sedation Medications * [...] vitamin D, ergocalciferol , (Drisdol) 1.25 MG (66764 UT) capsule TAKE 1 CAPSULE BY MOUTH [...] (08/21/2024): Added automatically from request for surgery [id number] Prediabetes 05/01/2021 Primary osteoarthritis of left knee 01/01/2021 Intestinal metaplasia of gastric mucosa 02/07/20 Overview (08/21/2024): Added automatically from request for surgery [id number] Gastritis 11/16/2018 Obstructive sleep apnea syndrome 01/22/2017 [...] (08/21/2024): Added automatically from request for surgery [id number] History of colon polyps 01/19/201907/30 Overview (08/21/2024): Added automatically from request for surgery [id number] Chronic fatigue 11/16/2018 08/21/2024 Acute streptococcal pharyngitis [...] Recorded Patient Health Questionnaire-2 Score 0 08/31/2024 [facility] [place] [facility] Occupat ional Health - Occupational Stress [...] any time in the past 12 m [facility], were you homeless or living in a intermediate (including now)? No 08/17/2024 Comments No Sex [...] CDT Respiratory Rate 18 09/01/2024 5:11 AM MANAGER PACKAGING Oxygen Saturation 94% 11/01/2024 3:33 PM CDT [...] this topic Medical Devices Implanted Type Area Risk Management Professional Device Identifier Shelf Expiration Date Model / Serial / Lot Grnyla Tiss Rep Xenform 4 X 7cm Implanted:Qty: 1 on 03/14/2014 by Anirudh Payton MD at [facility] [employer] 03/27/2016 [id number] / / [id number] Procedures Procedure Name Priority Date/Time Associated Diagnosis Comments GLUCOSE - POINT OF CARE Routine 09/01/2024 12:07 AM MANAGER PACKAGING from Last 3 Months or Most Recently Relevant to Health Maintenance Results * (ABNORMAL) GLUCOSE - POINT OF CARE (09/01/2024 12:07 AM MANAGER PACKAGING) [facility] Glucose WB/POC 148(H) 70 - 99 mg/dL 09/01/2024 4:31 AM MANAGER PACKAGING [facility] Specimen Type Cap Fingerstick 2024 4:31 AM MANAGER PACKAGING [facility] Blood BLOOD SPECIMEN / Unknown 09/01/2024 12:07 AM MANAGER PACKAGING 09/01/2024 4:31 AM MANAGER PACKAGING Darryl Osullivan MD LAB - POINT OF CARE ORDERABLES Final Result [facility] [address] [place] [address], [facility] [phone] from Last 3 Months or Most Recently Relevant to Health Maintenance Insurance MEDICARE ANTHEM Advance Directives Documents on File Type Date Recorded Patient Sharepoint Admin Expl anation Adv Directive/Living Will/POA 09/04/2024 10:44 AM * Full Code (Latest Code Status on File) Date Activated Date Inactivated Comments 08/17/2024 1:19 PM 09/01/2024 5:57 PM * Full Code Date Activated Date Inactivated Comments 03/14/2014 5:19 PM 03/15/2014 12:59 PM Care Teams Director Of Corporate Sales Relationship Specialty Start Date End Date Florentino Hood [address] [place] [address] PCP - General 11/01/24 Azucena Peres, CAITLIN Dispute Specialist 03/15/14
--- OUTSIDE RECORDS SUMMARY | 2025-05-01 11:33 | XMS_ITS | Clinical Summary ---
Author Organization [facility] Address [address] [place] [address] Care Team Providers Care Lead Teller Name Role Phone Kevon Gaytan MD Unavailable [phone] Anirudh Pena MD Unavailable Florentino Hood MD Primary Care Provider [phone] Rivas Mcdermott Unavailable [phone] Hema Shelby MD Unavailable [phone] Allergies Active Allergy Reactions Criticality Noted Date [...] 1 tablet (300 mcg total) by mouth neon tube pumper before breakfast 10/28/19 22 Active vitamin D3-vitamin [...] (06/16/2021): Added automatically from request for surgery [id number] COVID-19 virus infection 05/23/2021 Prediabetes 05/01/2021 History of thyroidectomy 04/10/2021 Hypothyroidism 03/24/2021 Assessment & Plan (01/26/2024 7:25 PM CDT): Continue home synthroid Primary osteoarthritis of left knee 01/01/2021 Intestinal metaplasia of gastric mucosa 02/07/20 Overview (02/07/2020): Added automatically from request for surgery [id number] Acute upper respiratory infection 11/30/2019 COVID-19 virus infection 11/30/2019 Pre-operative cardiovascular examination 020 Overview (10/27/2019): Added automatically from request for surgery [id number] Sore throat 08/02/2019 Secondary hyperparathyroidism 02/24/2019 Epigastric discomfort 02/03/2019 Overview (02/03/2019): Added automatically from request for surgery [id number] Angiomyolipoma of right kidney 01/23/2019 Complex renal [...] (01/19/2019): Added automatically from request for surgery [id number] Early satiety 01/19/2019 Overview (01/19/2019): Added automatically from request for surgery [id number] History of colon polyps 01/19/2019 Overview (01/20/2019): Added automatically from request for surgery [id number] Abnormal CT scan, sigmoid colon 01/03/2019 Chronic fatigue 11/16/2018 Gastritis 11/16/2018 Shortness of breath 11/16/2018 Sinusitis 10/27/2018 Acute streptococcal pharyngitis 09/28/2018 Weight gain 09/28/2018 Nausea and vomiting 08/18/2018 Parasites in stool 08/18/2018 Coronary artery disease invo lving [place] coronary artery of [place] heart without angina pectoris 05/05/2018 Overview (05/05/2018): Added automatically from request for surgery [id number] Abnormal EKG 05/05/2018 Overview (05/05/2018): Added automatically from request for surgery [id number] HTN (hypertension), benign 04/30/2018 Assessment & Plan [...] Department Care Team Description 04/26/2025 Orders Only [facility] Orthopaedic Surgery [address] [facility] Medical Office Building [address] [place] [address] Robert Ledesma Todd Primary osteoarthritis of right hip (Primary Dx); Hip pain, right 04/09/2025 10:15 AM CDT Office Visit [facility] [address] [facility] [address] [place] [address] Hema Shelby MD PTE (pulmonary thromboembolism) (Primary Dx) 02/07/2025 2:15 PM CDT Office Visit [facility] Cardiology [address] [facility] [address] [place] [address] Kevon Gaytan MD Chest pain, unspecified type (Primary Dx); Coronary artery disease involving [place] coronary artery of [place] heart without angina pectoris; Benign hypertension 01/31/2025 10:02 AM CDT - 01/31/2025 11:59 PM CDT Hospital Encounter [facility] Rad[facility] [address] [facility] [address] [place] [id number] Anuj Shukla MD Hip pain, right Discharge Disposition: Discharge to home or self care 01/29/2025 Telephone Radiology - [address] [facility] [address] [place] [address] Roxi Dawson, RT from Last 3 Months [...] drink = 0.6 oz pur e alcohol) [facility] Utilities Answer Date Recorded In the past 12 months has th e Scholrly, gas, oil, or water [employer] threatened to shut off services in your home? No 10/07/2024 Social Connection and Isolation Panel Answer Date Recorded In a typical week, how many times do you talk on the phone with family, friends, or neighbors? Three times a week 10/07/2024 How often do you get togethe r with friends or relatives? Three times a week 10/07/2024 How often do you attend [facility] or sabianist services? More than 4 times per year 10/07/2024 Do you belong to any clubs o r organizations such as baptist groups, unions, fraternal or athletic groups, or [...] any time in the past [address] [facility], were you homeless or living in a alf (including now)? No 10/07/2024 Personal Safety Answer Date Recorded Have you ever been in or are you currently in a harmful physical or emotional relationship or is someone making you feel afraid or unsafe? Denies 01/03/2025 Comments No Sex and Gender Information Value Date Recorded Sex Assigned at Not on file Legal Sex Female 12:18 AM TUTORING CLINICIAN Gender Identity Not on file Sexual Orientation [...] home safety. Medical Devices Implanted Type Area Casserole Preparer Device Identifier Shelf Expiration Date Model / Serial / Lot Stent Implanted:Qty: 5 on 12/07/2012 Stent N/A: Coronary Artery Cervical Spine Ortho Hardware (Cage) Spine Cervical Rt Total Knee Arthroplasty- Implanted:11/07 (Quantity not on file) Right: Knee [employer] [id number] Attune Cemented Posterior Stabilize Knee Left 5 Component Femoral - [id number] Implanted:Qty: 1 on 05/07/2021 by Roney Saldaña MD at [facility] Left: Knee [employer] [id number] / / [employer] [id number] Attune S+ Cement Fix Bearing Knee 5 Baseplate Tibial - [id number] Implanted:Qty: 1 on 05/07/2021 by Roney Saldaña MD at [facility] Left: Knee [employer] [id number] / / [employer] 6197-9-010 Simplex P Full Dose Radiopaque Preblend Cement Bone Tobramycin - [id number] Implanted:Qty: 1 on 05/07/2021 by Roney Saldaña MD at [facility] Left: Knee [employer] [id number] / / [employer] 6197-9- Simplex P Full Dose Radiopaque Preblend Cement Bone Tobramycin - [id number] Implanted:Qty: 1 on 05/07/2021 by Roney Saldaña MD at [facility] Left: Knee [employer] 6197-9 / / [employer] 6197-9 Simplex P Full Dose Radiopaque Preblend Cement Bone Tobramycin - [id number] Implanted:Qty: 1 on 05/07/2021 by Roney Saldaña MD at [facility] Left: Knee [employer] [id number] 6197-9 / / [employer] [id number] Attune 6mm Posterior Stabilize Fix Bearing Knee 5 Insert Tibial - [id number] Implanted:Qty: 1 on 05/07/2021 by Roney Saldaña MD at [facility] Left: Knee [employer] [id number] / / Procedures Procedure Name Priority Date/Time [...] Female Attending MD: Mando Bonilla M.D. Room: [facility] ENDOSCOPY ROOM 03 Note Status: Finalized [...] The scope was passed under direct vision.The [id number] was introduced through the anusand advanced to [...] business hours - Please call theNurse Coordinator: [phone] After hours, evening, nights, weekends and holidays- Please call the hospital roll forming machine operator at and ask for the GI fellow advertising consultant. Attending Participation: I personally performed the entire procedure. Electronically signed by Mando Bonilla MD Mando Bonilla M.D. 04/01/2022 11:02:27 AM Number of Addenda: 0 Note Initiated On: 04/01/2022 10:41 AM Mando Bonilla MD ENDOSCOPY PROCEDURES Final Result from Last 3 Months or Most Recently Relevant to Health Maintenance Insurance [employer] ACCESS OOS MEDICARE [employer] ACCESS OOS MEDICARE [employer] OOS Advance Directives For more information, please contact: [phone] Documents on File Type Date Recorded Patient Crossing Flagman Expl anation ADVANCE DIRECTIVE 01/14/2019 1:58 PM POWER OF MORTUARY TECHNICIAN-FINANCIAL/MEDICAL * Full Code (Latest Code Status on [...] 4:53 PM 01/28/2024 6:33 PM Care Teams Lead Teller Relationship Specialty Start Date End Date Florentino Hood MD [address] [facility] [place] [address] PCP - General Family Medicine 08/09/23 Kevon Gaytan MD [address] [place] [address] Consulting Physician Cardiology 04/04/21 Anirudh Pena MD [address] [place] [address] Referring Physician Otolaryngology 05/12/23 Rivas Mcdermott PA [address] [place] [address] Physician Campaign Marketing Specialist Neurosurgery 10/09/24 Hema Shelby MD [address] [place] [address] Consulting Physician Pulmonary Disease 10/09/24
--- OUTSIDE RECORDS SUMMARY | 2025-05-01 11:33 | XMS_ITS | Encounter Summary ---
Author Organization [facility] Address [address] [place] [address] Care Team Providers Care Scheduler Conveyor Name Role Phone Katlyn Jones MD Primary Care Provider [phone] Kevon Gaytan MD Unavailable [phone] Oscar Hood MD Primary Care Provider [phone] Anirudh Pena MD Unavailable [phone] Florentino Hood MD Primary Care Provider [phone] Rivas Mcdermott Unavailable [phone] Hema Shelby MD Unavailable [phone] Encounter Details Date Type Department Care Team (Late st Contact Info) Description 03/25/2020 Telephone [facility] [address] [place] [address] Thai Nixon, RT Social History Tobacco Use Types Packs/Day Years Used Date Smoking Tobacco: Never Smokeless Tobacco: Never Alcohol Use Standard Drinks/Week Comments No 0 (1 standard drink = 0.6 oz pur e alcohol) Comments No Sex and Gender Information Value Date Recorded Sex Assigned at Not on file Legal Sex Female 12:18 AM FOCUSED FACTORY MANAGER Gender Identity Not on file Sexual [...] COVID: Suspected 08/27/2022 08/27/2022 08/27/2022 7:54 PM FOCUSED FACTORY MANAGER COVID: Suspected 07/26/2023 07/26/2023 07/26/2023 6:45 PM FOCUSED FACTORY MANAGER documented as of this encounter Care Teams Scheduler Conveyor Relationship Specialty [place] [address] [facility] [address] [place] [address] PCP - General Internal Medicine 04/29/18 05/15/21 Oscar Hood MD [address] [place] [address] PCP - General 05/16/21 08/08/23 Florentino Hood MD [address] [facility] [place] [address] PCP - General Family Medicine 08/09/23 Kevon Gaytan MD [address] [facility] [address] [place] [address] Consulting Physician Cardiology 04/04/21 Anirudh Pena MD [address] [place], [place] [address] Referring Physician Otolaryngology 05/12/23 Rivas Mcdermott PA [address] [place] [address] [address] Attendant Neurosurgery 10/09/24 Hema Shelby MD [address] [place] [address] Consulting Physician Pulmonary Disease 10/09/24 documented as of this encounter
--- OUTSIDE RECORDS SUMMARY | 2025-05-01 11:33 | XMS_ITS | Encounter Summary ---
Author Organization [facility] Healthcare Address [address] [place] [address] Care Team Providers Care Sports Physiologist Name Role Phone Katlyn Jones MD Primary Care Provider [phone] Kevon Gaytan MD Unavailable [phone] Oscar Hood MD Primary Care Provider [phone] Anirudh Pena MD Unavailable Florentino Hood MD Primary Care Provider [phone] Rivas Mcdermott Unavailable [phone] Hema Shelby MD Unavailable [phone] Encounter Details Date Type Department Care Team (Late st Contact Info) Description 07/02/2020 Telephone [facility] Radiology at [facility] Medicine [address] [place] [address] Leatha Truong RDMS Social History Tobacco Use Types Packs/Day Years Used Date Smoking Tobacco: Never Smokeless Tobacco: Never Alcohol Use Standard Drinks/Week Comments No 0 (1 standard drink = 0.6 oz pur e alcohol) Comments No Sex and Gender Information Value Date Recorded Sex Assigned at Not on file Legal Sex Female 12:18 AM MEN'S GARMENT FITTER Gender Identity Not on file Sexual Orientation [...] COVID: Suspected 08/27/2022 08/27/2022 08/27/2022 7:54 PM MEN'S GARMENT FITTER COVID: Suspected 07/26/2023 07/26/2023 07/26/2023 6:45 PM MEN'S GARMENT FITTER documented as of this encounter Care Teams Sports Physiologist Relationship Specialty [place] [address] [facility] [address] [place] [address] PCP - General Internal Medicine 04/29/18 05/15/21 Oscar Hood MD [address] [place] [address] PCP - General 05/16/21 08/08/23 Florentino Hood MD [address] [facility] DEPT [place] [address] PCP - General Family Medicine 08/09/23 Kevon Gaytan MD [address] [facility] [address] [place] [address] Consulting Physician Cardiology 04/04/21 Anirudh Pena MD [address] [place] [address] Referring Physician Otolaryngology 05/12/23 Rivas Mcdermott PA [address] [place] [address] Physician Patient Scheduler Neurosurgery 10/09/24 Hema Shelby MD [address] [place] [address] Consulting Physician Pulmonary Disease 10/09/24 documented as of this encounter
--- OUTSIDE RECORDS SUMMARY | 2025-05-01 11:34 | XMS_ITS | Encounter Summary ---
Author Organization [facility] Address [address] [place] [address] Phone Care Team Providers Care Forestry Professor Name Role Phone Kevon Gaytan MD Unavailable [phone] Anirudh Pena MD Unavailable Florentino Hood MD Primary Care Provider [phone] Rivas Mcdermott Unavailable Hema Shelby MD Unavailable [phone] Reason for Referral * Diagnostic Imaging (Routine) - Authorized Specialty Diagnoses / Procedures Referred By Contac t Referred To Contact Diagnoses Primary osteoarthritis of right hip Hip pain, right Procedures [place] Fluoro Guided Injection Hip Right Brenna Whatley NP [address] [facility] [address] [place] [address] Phone: tel: fax: [place] [address] [place] [address] Referral ID Status Reason Start Date Expiration Date V isits Requested Visits Authorized [id number] Authorized 04/26/2025 05/26/2026 1 1 Encounter Details Date Type Department Care Team (Late st Contact Info) Description 04/26/2025 Orders Only [facility] Medicine Orthopaedic Surgery [address] [facility] Medical Office [address] [place] [address] Robert Ledesma RMA Primary osteoarthritis of right hip (Primary Dx); Hip pain, right Social History Tobacco Use Types Packs/Day Years Used Date Smoking Tobacco: Never Passive Smoke Exposure: Current Smokeless Tobacco: Never Alcohol Use Standard Drinks/Week Comments No 0 (1 standard drink = 0.6 oz pur e alcohol) [facility] Utilities Answer Date Recorded In [...] week 10/07/2024 How often do you attend [facility] or rastafarian services? More than 4 times per year 10/07/2024 Do you belong to any clubs o r organizations such as jewish groups, unions, fraternal or athletic groups, or [...] time in the past 12 m [facility], were you homeless or living in a group home (including now)? No 10/07/2024 Personal Safety Answer Date Recorded Have you ever been in or are you currently in a harmful physical or emotional relationship or is someone making you feel afraid or unsafe? Denies 01/03/2025 Comments No Sex and Gender Information Value Date Recorded Sex Assigned at Not on file Legal Sex Female 12:18 AM MACHINE MOVER Gender Identity Not on file Sexual Orientation [...] on stairs Contact your local community or [facility] for information on exercise, fall prevention programs, or options for improving home safety. documented as of this encounter Visit Diagnoses Diagnosis Primary osteoarthritis of right hip- Primary Hip pain, right Pain in joint, pelvic region and thigh documented in this encounter Care Teams Forestry Professor Relationship Specialty Start Date End Date Florentino Hood MD [address] [facility] [place] [address] PCP - General Family Medicine 08/09/23 Kevon Gaytan MD [address] [place] [address] Consulting Physician Cardiology 04/04/21 Anirudh Pena MD [address] [place] [address] Referring Physician Otolaryngology 05/12/23 Rivas Mcdermott PA [address] [place] [address] Physician Tree Sapper Neurosurgery 10/09/24 Hema Shelby MD [address] [place] [address] Consulting Physician Pulmonary Disease 10/09/24 documented as of this encounter
--- NOTE | 2025-05-01 12:18 | ADMGEN ---
This patient, Sarah Justice, was admitted to 2 Medical Room 261-01. Patient/family oriented to hospital policies and general routines including ID bracelet, bed and alarms, visiting hours, pain management, procedures, bathroom and other care routines, personal items, smoking policy, room service/diet, and visiting hours. Information on how to activate the Rapid Response Team has been discussed. Patient/Family are encouraged to report perceived risks to care and to ask questions if they do not understand what they are told or what they should do.
--- NOTE | 2025-05-01 13:04 | ED.NEUROSD ---
HPI - Neuro Symptoms/Deficit General Chief Complaint: Neuro Symptoms/Deficit Stated Complaint: right zoroastrian pain Time Seen by Provider: 05/01/25 09:35 History of Present Illness HPI Narrative: Patient at 8am this morning had sudden severe pain to her right eye/zoroastrian, she also felt like her right face felt slightly numb, and some numbness to her mouth and tongue. History of hemorrhagic stroke back in July with residual deficits to her left eye visual field Related Data Home Medications ?Medication ?Instructions ?Recorded ?Confirmed ?Last Taken ?Type aspirin 81 mg tablet,delayed 81 mg PO HS 05/01/25 05/01/25 Unknown History release (Adult Aspirin Regimen) ergocalciferol (vitamin D2) 1,250 1,250 mcg PO WEEKLY 05/01/25 05/01/25 Unknown History mcg (50,000 unit) capsule evolocumab 140 mg/mL subcutaneous 140 mg subcut .COMPLEX 05/01/25 05/01/25 04/23/25 History pen injector (Jasmin Roblero) hydralazine 25 mg tablet 12.5 mg PO BID 05/01/25 05/01/25 Unknown History levothyroxine 300 mcg tablet 300 mcg PO DAILY@0630 05/01/25 05/01/25 Unknown History losartan 50 mg tablet 50 mg PO DAILY 05/01/25 05/01/25 Unknown History meclizine 12.5 mg tablet 12.5 mg PO Q8H PRN dizziness 05/01/25 05/01/25 Unknown History metoprolol succinate 25 mg 75 mg PO HS 05/01/25 05/01/25 Unknown History tablet,extended release 24 hr ondansetron 4 mg disintegrating 4 mg PO Q8H PRN nausea and vomiting 05/01/25 05/01/25 Unknown History tablet quetiapine 25 mg tablet 25 mg PO HS 05/01/25 05/01/25 Unknown History torsemide 20 mg tablet 20 mg PO DAILY PRN swelling 05/01/25 05/01/25 Unknown History tramadol 50 mg tablet 50 mg PO Q8H PRN pain 05/01/25 05/01/25 Unknown History Allergies Allergy/AdvReac Type Severity Reaction Status Date / Time acetaminophen (From Allergy Intermediate BREATHING Verified 05/01/25 12:35 Darvocet-N) DIFFICULTIES propoxyphene (From Allergy Intermediate BREATHING Verified 05/01/25 12:35 Darvocet-N) DIFFICULTIES codeine Allergy Unknown Difficulty Verified 05/01/25 12:35 Breathing morphine Allergy Unknown Difficulty Verified 05/01/25 12:35 Breathing duloxetine (From Cymbalta) AdvReac Confusion Verified 05/01/25 12:37 HORSERADISH Allergy Severe BREATHING Uncoded 03/13/11 19:53 DIFFICULTIES Review of Systems Review of Systems: All systems reviewed & are unremarkable except as noted in HPI and below PMFSH Past Medical History Medical History (Updated 05/01/25 @ 10:34 by Miranda Castro MD) Hypothyroidism CAD (coronary artery disease) of artery bypass graft Hyperlipidemia Hypertension Surgical History Surgical History (Updated 08/17/24 @ 11:41 by Anirudh Pompa MD) History of percutaneous coronary intervention Family History Family History (Updated 10/09/14 @ 11:41 by DOCTOR UNKNOWN) Other Cerebrovascular accident Family history of arthritis Family history of thyroid disease Hypertension Social History Social History Smoking status: Never smoker Alcohol intake: never Substance use: never Lack of Transportation: No Lack of Food: Never True Current Housing: I Have Housing Concerned About Future Housing: No Difficulty Paying Gas/Electric Bills: No Difficulty Paying for Meds: No Currently Unemployed: No Education: High School Diploma/GED Difficulty w/ Childcare or Family Care: No Spiritual care concerns: No Exam Narrative: EXAMINATION OF ORGAN SYSTEMS/BODY AREAS: Constitutional: Vital signs per nursing GENERAL: Appears quite anxious HEAD: Normal with no signs of head trauma. EYES: EOMI, conjunctiva normal, PERRL, VA 20/70 and 20/50 left and right eye; diminished visual connolly left eye lower ENT: Hearing grossly intact LUNGS: Nonlabored breathing. HEART: [Regular rate and rhythm] ABD: [Soft], [nontender to palpation] EXT: Normal range of motion SKIN: [No rashes or lesions.] NEURO: [Alert and oriented x 3. Some subjective diminished sensation to the right side of face, otherwise normal sensation upper and lower extremities, normal strength upper and lower extremities, no pronator drift, normal [id number] bilaterally.] PSYCH: Anxious affect Course Vital Signs Vital signs: Vital Signs Temperature 97.8 F 05/01/25 09:53 Pulse Rate 64 05/01/25 09:53 Respiratory Rate 16 05/01/25 09:53 Blood Pressure 153/64 H 05/01/25 09:53 Pulse Oximetry 93 05/01/25 09:53 Temperature 97.8 F 05/01/25 14:00 Pulse Rate 65 05/01/25 14:00 Respiratory Rate 18 05/01/25 14:00 Blood Pressure 119/63 05/01/25 14:00 Pulse Oximetry 100 05/01/25 14:00 MDM - Neuro Symptoms/Deficit MDM Narrative Medical decision making narrative: Patient presenting here with severe pain to her right zoroastrian and I, and pressure to her left eye, with sensation of numbness her mouth, with concern for a stroke. On exam she is quite anxious appearing, she is reporting some sensation difference to the right side of her face, otherwise her neuro exam is normal other than residual left lower visual field deficits from prior CVA NIH stroke scale is 2 CTA head and neck without acute abnormality. On my re-evaluation of the patient, she states that her symptoms have essentially resolved. I did perform an eye exam, noted both eyes ocular pressure 12 and 14, therefore I have lower concern for acute angle closure glaucoma. Discussed with the neurologist who recommends admission for MRI. Stable for admission discussion with hospitalist, I did also update the patient and her daughter Lab Data 05/01/25 09:43 05/01/25 09:43 Labs: Lab Results 05/01/25 05/01/25 Range/Units 09:32 09:43 WBC 7.6 (4.5-10.0) K/mm3 RBC 3.62 L (4.2-5.4) M/mm3 Hgb 9.5 L D (12.0-15.0) g/dL Hct 31.6 L (37.0-47.0) % MCV 87.3 (80-100) fl MCH 26.2 (26-34) pg MCHC 30.1 L (32-36) g/dl RDW 12.7 (11.5-14.5) % Plt Count 305 (150-375) k/mm3 MPV 8.7 (7.4-10.4) fl Immature Gran % (Auto) 0.3 (0-0.5) % Neut % (Auto) 69.0 (45.5-73.1) % Lymph % (Auto) 20.3 (18.3-44.2) % [place] % (Auto) 7.4 (2.6-8.5) % Eos % (Auto) 2.2 (0-4.4) % Baso % (Auto) 0.8 (0.2-1.2) % Lymph # (Auto) 1.54 (0.9-3.2) K/mm3 [place] # (Auto) 0.6 (0.1-0.6) K/mm3 Eos # (Auto) 0.2 (0-0.3) K/mm3 Baso # (Auto) 0.1 (0.0-0.1) K/mm3 Abs Immat Gran (auto) 0.02 (0.00-0.031) K/mm3 Absolute Neuts (auto) 5.2 (1.3-6.7) K/mm3 Absolute Nucleated RBC 0.000 (0.0-0.012) K/mm3 Nucleated RBC % 0.0 (0.0-0.2) % PT 14.3 (11.1-14.7) Seconds INR 1.1 APTT 25.5 (22.3-36.8) Seconds Sodium 141 (137-145) mmol/L Potassium 4.3 (3.4-5.0) mmol/L Chloride 107 (98-107) mmol/L Carbon Dioxide 27 (22-30) mmol/L Anion Gap 7 (4-12) mmol/L BUN 25 H (7-17) mg/dL Creatinine 0.88 (0.7-1.0) mg/dL Estim Creat Clear Calc 63 ml/min Estimated GFR > 60 (59 - ) Glucose 99 (65-110) mg/dL POC Capillary Glucose 106 H (65-105) mg/dl Calcium 9.1 (8.4-10.2) mg/dL Total Bilirubin 0.6 (0.2-1.3) mg/dL AST 25 (14-36) U/L ALT 15 (6-35) U/L Alkaline Phosphatase 88 (38-126) U/L Troponin I < 0.012 (0.000-0.034) ng/mL Total Protein 6.9 (6.3-8.2) g/dL Albumin 3.9 (3.5-5.1) g/dL Discharge Plan Discharge Clinical Impression: Pain in eye Patient Disposition: Still a Patient Condition: Stable
--- NOTE | 2025-05-01 17:22 | PM.IMHP ---
H&P: HPI History of Present Illness Date/Time: 05/01/25 17:22 Chief Complaint: Eye pain Narrative: The patient is a 69-year-old female history of CAD status post 5 stents, history of total knee arthroplasty, renal cell carcinoma status post ablation and treatment, hypertension, hyperlipidemia, prediabetes, most notably recent hemorrhagic thalamic stroke July of this year and subsequent DVT/PE treated with apixaban for 6 months (completed treatment about 2 weeks ago) presenting now with onset of right-sided eye pain, sharp, lateral, followed-up by black spots in the left eye and blurred vision that initially lasted several minutes, with a subsequent episode lasted about 40-50 seconds. She had another episode during evaluation that was also transient. Symptoms are accompanied by a sensation of numbness in the distal aspect of the right arm, right foot, and refer her mouth, lip which lasted about 30-40 minutes before completely resolving. Denies any other problems with paresis or paralysis at this time. She is swallowing well. She is ambulating normally. She has had residual left eye ptosis since CVA in July that is usually present when she is very tired. Given prior CVA earlier this year, patient was highly concerned about symptoms and decided to present through the emergency room. Patient was subsequently admitted with MRI order in place and pending. Review of Systems Review of Systems: All systems reviewed & are unremarkable except as noted in HPI and below PMFSH Past Medical History Medical History (Updated 05/01/25 @ 17:31 by Cristino topete Oca, MD) CAD (coronary artery disease) Personal history of DVT (deep vein thrombosis) Bilateral primary osteoarthritis of hip Hypothyroidism CAD (coronary artery disease) of artery bypass graft Hyperlipidemia Hypertension Surgical History Surgical History (Updated 08/17/24 @ 11:41 by Anirudh Pompa MD) History of percutaneous coronary intervention Family History Family History (Updated 10/09/14 @ 11:41 by DOCTOR UNKNOWN) Other Cerebrovascular accident Family history of arthritis Family history of thyroid disease Hypertension Social History Social History Smoking status: Never smoker Alcohol intake: never Substance use: never Lack of Transportation: No Lack of Food: Never True Current Housing: I Have Housing Concerned About Future Housing: No Difficulty Paying Gas/Electric Bills: No Difficulty Paying for Meds: No Currently Unemployed: No Education: High School Diploma/GED Difficulty w/ Childcare or Family Care: No Spiritual care concerns: No Meds Home Medications and Allergies Home Medications ?Medication ?Instructions ?Recorded ?Confirmed ?Type aspirin 81 mg tablet,delayed 81 mg PO HS 05/01/25 05/01/25 History release (Adult Aspirin Regimen) ergocalciferol (vitamin D2) 1,250 1,250 mcg PO WEEKLY 05/01/25 05/01/25 History mcg (50,000 unit) capsule evolocumab 140 mg/mL subcutaneous 140 mg subcut .COMPLEX 05/01/25 05/01/25 History pen injector (Jasmin Roblero) hydralazine 25 mg tablet 12.5 mg PO BID 05/01/25 05/01/25 History levothyroxine 300 mcg tablet 300 mcg PO DAILY@0630 05/01/25 05/01/25 History losartan 50 mg tablet 50 mg PO DAILY 05/01/25 05/01/25 History meclizine 12.5 mg tablet 12.5 mg PO Q8H PRN dizziness 05/01/25 05/01/25 History metoprolol succinate 25 mg 75 mg PO HS 05/01/25 05/01/25 History tablet,extended release 24 hr ondansetron 4 mg disintegrating 4 mg PO Q8H PRN nausea and vomiting 05/01/25 05/01/25 History tablet quetiapine 25 mg tablet 25 mg PO HS 05/01/25 05/01/25 History torsemide 20 mg tablet 20 mg PO DAILY PRN swelling 05/01/25 05/01/25 History tramadol 50 mg tablet 50 mg PO Q8H PRN pain 05/01/25 05/01/25 History Allergies Allergy/AdvReac Type Severity Reaction Status Date / Time acetaminophen (From Allergy Intermediate BREATHING Verified 05/01/25 12:35 Darvocet-N) DIFFICULTIES propoxyphene (From Allergy Intermediate BREATHING Verified 05/01/25 12:35 Darvocet-N) DIFFICULTIES codeine Allergy Unknown Difficulty Verified 05/01/25 12:35 Breathing morphine Allergy Unknown Difficulty Verified 05/01/25 12:35 Breathing duloxetine (From Cymbalta) AdvReac Confusion Verified 05/01/25 12:37 HORSERADISH Allergy Severe BREATHING Uncoded 03/13/11 19:53 DIFFICULTIES Vital Signs Vital Signs - 24 hr 05/01/25 09:53 05/01/25 11:09 05/01/25 12:05 Temperature 97.8 F Pulse Rate 64 59 L Respiratory Rate 16 15 Blood Pressure 153/64 H 143/59 H Pulse Oximetry 93 100 Oxygen Delivery Room Air 05/01/25 14:00 Temperature 97.8 F Pulse Rate 65 Respiratory Rate 18 Blood Pressure 119/63 Pulse Oximetry 100 Oxygen Delivery Exam Const: General: comfortable and no acute distress HENMT: Face/Nose/Sinus: Normal nares present Mouth: Yes moist mucous membranes Eyes: General: appearance normal, both eyes and all related structures Sclera: sclerae normal Pupils: Equal, round and reactive pupils present EOM: EOMs intact bilaterally Neck: Neck: supple and no JVD Resp: Effort & Inspection: normal respiratory effort Auscultation: clear to auscultation bilaterally Cardio: Rate: regular rate Rhythm: regular rhythm GI: GI Palp: Yes Soft to palpation Auscultation: normal bowel sounds Skin: General skin exam: normal color Neuro: General: gait normal Speech: normal speech Motor exam (neuro): 5/5 motor strength present throughout and Normal motor muscle tone present throughout Sensory Exam: normal sensation Extrem: General: normal to inspection Psych: Mental Status: mental status grossly normal Affect: normal affect H&P: Results Labs Labs: Short CBC 05/01/25 Range/Units 09:43 WBC 7.6 (4.5-10.0) K/mm3 Hgb 9.5 L D (12.0-15.0) g/dL Hct 31.6 L (37.0-47.0) % Plt Count 305 (150-375) k/mm3 [facility] 05/01/25 09:43 Sodium 141 Potassium 4.3 Chloride 107 Carbon Dioxide 27 BUN 25 H Creatinine 0.88 Glucose 99 Calcium 9.1 Cardiac Enzymes 05/01/25 Range/Units 09:43 Troponin I < 0.012 (0.000-0.034) ng/mL Liver Function 05/01/25 Range/Units 09:43 Total Bilirubin 0.6 (0.2-1.3) mg/dL AST 25 (14-36) U/L ALT 15 (6-35) U/L Alkaline Phosphatase 88 (38-126) U/L Albumin 3.9 (3.5-5.1) g/dL Assessment and Plan Assessment and plan (1) TIA (transient ischemic attack): Code(s): G45.9 - Transient cerebral ischemic attack, unspecified Status: Acute Assessment and Plan: Consideration TIA this time given onset of symptoms and transient nature however recurrent nature is concerning for more serious etiology occurring at this time. Brain MRI has been ordered, patient is to continue aspirin Patient cannot tolerate statin, as such she is on Repatha every 2 weeks. Neurology to be consulted in the morning Echocardiogram also ordered to rule out cardiac etiologies (2) Anxiety: Code(s): F41.9 - Anxiety disorder, unspecified Status: Acute Assessment and Plan: Patient has had resultant anxiety since prior CVA in July, currently on Seroquel 1 dose in the afternoon and 1 dose at bedtime Continue same (3) Bilateral primary osteoarthritis of hip: Code(s): M16.0 - Bilateral primary osteoarthritis of hip Status: Acute Assessment and Plan: History of significant osteoarthritis of the hip, patient says she is due for replacement however due to recent events has not been apparent good surgical candidate. She normally goes for injections and takes tramadol p.r.n. as well as naproxen p.r.n. for symptoms Will continue tramadol and naproxen p.r.n. (4) Personal history of DVT (deep vein thrombosis): Code(s): Z86.718 - Personal history of other venous thrombosis and embolism Status: Acute Assessment and Plan: Status post apixaban course for 6 months, she completed several weeks ago Standard DVT prophylaxis at this time (5) CAD (coronary artery disease): Code(s): I25.10 - Atherosclerotic heart disease of [place] coronary artery without angina pectoris Status: Acute Assessment and Plan: Per patient has had 5 stents currently denies chest pain and is on aspirin and Repatha Quality Stroke Scale 1a Level of conciousness: responds reflex motor-3 1b Level of consciousness: answers both correctly-0 1c Level of consciousness: obeys both correctly-0 2 Best gaze: normal-0 3 Visual: partial hemianopia-1 4 Facial palsy: normal-0 5a Motor: left arm: no drift-0 5b Motor: right arm: no drift-0 6a Motor: left leg: no drift-0 6b Motor: right leg: no drift-0 7 Limb ataxia: absent-0 8 Sensory: normal-0 9 Best language: no aphasia-0 10 Dysarthria: normal-0 11 Extinction and inattention: no abnormality-0 Level:: 4 Hospitalist MIPS Advance Care Plan I have confirmed that the patient's Advanced Care Plan is present, code status is documented, or surrogate decision maker is listed in patient medical record.: Yes Medication Reconciliation I have utilized all available resources to obtain, update and review the patients current medications (includes all prescriptions, OTC, herbals, cannabis, and nutritional supplements).: Yes
[2025-05-01] MEDS: hydrALAZINE 12.5 MG TABLET PO (17:50)
[2025-05-01] MEDS: ASPIRIN 81 MG ENTERIC TABLET PO (20:45)
[2025-05-01] MEDS: traMADol HCL (*CRX) 50 MG TABLET PO (20:46)
[2025-05-01] MEDS: METOPROLOL SUCCINATE EXT REL 25 MG TABCR 75 MG PO (20:48)
[2025-05-02] VITALS (8 sets, daily range): BP systolic 134–149; BP diastolic 51–62; PULSE 57–76; RESP 12–20; TEMP 36.7–36.8; O2SAT 97–100
--- NOTE | 2025-05-02 | ECHO_ITS ---
Patient Info Name: Sarah Justice Age: 69 years : 1955 Gender: Female Ht: 68 in Wt: 195 lbs BSA: 2.08 m2 HR: 58 bpm BP: 149 / 62 mmHg Heart Rhythm: Sinus Rhythm Technical Quality: Fair Exam Date: 05/02/2025 11:02 AM Patient Status: I Admit Date: 05/01/2025 Exam Type: CA echo dop bubble study w con Complete two-dimentional, color flow and Doppler transthoracic echocardiogram is performed with agitated saline and with contrast to opacify the left ventricle and to improve the delineation of the left ventricle endocardial borders. Staff Referring Physician: Miranda Castro Financial Systems Director: Trupti Caraballo Attending Provider: Gisell Chadwick Contrast/Agitated Saline Contrast/Ag. Saline: Agitated Saline Amount: 20.00 ml Existing IV Access: Yes IV Access Condition: patent with no signs of infiltration Contrast/Ag. Saline: Definity Amount: 2.00 ml Administered By: Trupti Caraballo Existing IV Access: Yes IV Access Condition: patent with no signs of infiltration Summary 1. Left ventricular chamber dimension is normal. 2. Left ventricular systolic function is normal, estimated at 60-65. 3. There is mildly increased left ventricular wall thickness. 4. The left ventricular diastolic function is grade II diastolic dysfunction. 5. Left atrial chamber dimension is moderately enlarged. 6. Intact interatrial septum visualized by color flow and agitated saline imaging. 7. There is mild mitral valve regurgitation. 8. The mitral valve has thickened leaflets and a calcified annulus. 9. There is mild pulmonic regurgitation. Left Ventricle Left ventricular chamber dimension is normal. Left ventricular systolic function is normal, estimated at 60-65. There is mildly increased left ventricular wall thickness. The left ventricular diastolic function is grade II diastolic dysfunction. Right Ventricle Right ventricular chamber dimension is normal. Right ventricular systolic function is normal. Left Atria Left atrial chamber dimension is moderately enlarged. Right Atria Right atrial chamber dimension is normal. Atrial Septum Intact interatrial septum visualized by color flow and agitated saline imaging. Aortic Valve The aortic valve is trileaflet. There is mild aortic valve sclerosis. There is no aortic valve stenosis. There is trace aortic valve regurgitation. Pulmonic Valve The pulmonic valve is normal. There is no pulmonic valve stenosis. There is mild pulmonic regurgitation. Mitral Valve The mitral valve has thickened leaflets and a calcified annulus. There is no mitral valve stenosis. There is mild mitral valve regurgitation. Tricuspid Valve The tricuspid valve leaflets are normal. There is no significant tricuspid valve stenosis. There is trace tricuspid valve regurgitation. Inferior Vena Cava Normal inferior vena cava with >50% collapse upon inspiration consistent with normal right atrial pressure, 8 mmHg. Aorta The aortic root size at the sinus of Valsalva is normal. Left Ventricular Outflow Tract Name Value Normal LVOT 2D LVOT Diameter 2.0 cm LVOT Doppler LVOT Peak Velocity 105 cm/s LVOT Peak Gradient 4 mmHg LVOT Mean Gradient 2 mmHg LVOT VTI 25 cm LVOT VTI/AV VTI Ratio 0.8 LVOT Stroke Volume 81 ml LVOT CO 4.7 l/min LVOT CI 2.3 l/min/m2 Pulmonic Valve Name Value Normal RVOT Doppler RVOT Peak Velocity 90 cm/s RVOT Peak Gradient 3 mmHg PV Doppler PV Peak Velocity 133 cm/s PV Peak Gradient 7 mmHg Mitral Valve Name Value Normal MV Diastolic Function MV E Peak Velocity 106 cm/s MV A Peak Velocity 86 cm/s MV E/A 1.2 MV Decel Time (PW) 191 ms MV Annular TDI MV E/e' (Septal) 13.3 MV E/e' (Lateral) 11.5 MV E/e' (Average) 12.4 Tricuspid Valve Name Value Normal Estimated PAP/RSVP RA Pressure 8 mmHg <=5 TV Annular TDI TV Lateral Shabnam s' Velocity 15.0 cm/s >=9.5 Aorta Name Value Normal Ascending Aorta Ao Root Diameter (MM) 3.2 cm Ao Root Diam Index (MM) 1.6 cm/m2 Aortic Valve Name Value Normal AV Doppler AV Peak Velocity 144 cm/s AV Peak Gradient 8 mmHg AV Mean Gradient 4 mmHg AV VTI 30 cm AV Area (Cont Eq VTI) 2.7 cm2 >=3.0 AV Area (Cont Eq Wild) 2.3 cm2 AV DI (Wild) 0.73 AV Regurgitation 2D LVOT Area 3.2 cm2 Ventricles Name Value Normal LV Dimensions 2D/MM IVS Diastolic Thickness (2D) 1.0 cm 0.6-1.0 LVID Diastole (2D) 5.0 cm 3.8-5.2 LVIW Diastolic Thickness (2D) 1.0 cm 0.6-0.9 LVID Systole (2D) 3.0 cm 2.2-3.5 LVOT Diameter 2.0 cm LV Mass (2D Cubed) 178.77 g 67.00-162.00 LV Mass Index (2D Cubed) 86 g/m2 43-95 Relative Wall Thickness (2D) 0.40 <=0.42 LV Fractional Shortening/Ejection Fraction 2D/MM LV Fractional Shortening (2D) 40 % 27-45 LV EF (2D Teichholz) 70 % LV Diastolic Volume (4C MOD) 87 ml LV EF (4C MOD) 60 % LV Diastolic Volume (2C MOD) 57 ml LV EF (2C MOD) 62 % LV Diastolic Volume (BP MOD) 71 ml 46-106 LV Diastolic Volume Index (BP MOD) 34 ml/m2 29-61 LV Systolic Volume (BP MOD) 29 ml 14-42 LV Systolic Volume Index (BP MOD) 14 ml/m2 8-24 LV EF (BP MOD) 59 % 54-74 LV Diastolic Length (4C) 7.8 cm LV Systolic Length (4C) 6.9 cm LV Stroke Volume (4C MOD) 52 ml Atria Name Value Normal LA Dimensions LA Dimension (MM) 6.2 cm 2.7-3.8 LA Volume (4C A-L) 120 ml LA Volume (BP A-L) 113 ml RA Dimensions RA Area (4C) 21.6 cm2 <=18.0 Report Signatures
[2025-05-02] MEDS: traMADol HCL (*CRX) 50 MG TABLET PO ×2 (05:24→14:52)
[2025-05-02] MEDS: LEVOTHYROXINE SODIUM 150 MCG TABLET 300 MCG PO (05:24)
[2025-05-02 05:27] LABS: Hematocrit 29.7 % (37.0-47.0); Hemoglobin 8.7 g/dL (12.0-15.0); Immature Granulocyte Percent A 0.2 % (0-0.5); Lymphocytes Absolute Auto 1.74 K/mm3 (0.9-3.2); Mean Corpuscular HGB Conc 29.3 g/dl (32-36); Mean Corpuscular Hemoglobin 26.1 pg (26-34); Mean Corpuscular Volume 89.2 fl (80-100); Nucleated Red Blood Cells Absolute Auto 0.000 K/mm3 (0.0-0.012); Nucleated Red Blood Cells Perc 0.0 % (0.0-0.2); Platelet Count Result 275 k/mm3 (150-375); Red Blood Count 3.33 M/mm3 (4.2-5.4); White Blood Count 5.0 K/mm3 (4.5-10.0)
[2025-05-02 05:39] LABS: Alanine Aminotransferase 12 U/L (6-35); Albumin Level 3.4 g/dL (3.5-5.1); Alkaline Phosphatase 73 U/L (38-126); Anion Gap 3 mmol/L (4-12); Aspartate Amino Transferase 19 U/L (14-36); Bilirubin,Total 0.3 mg/dL (0.2-1.3); Blood Urea Nitrogen 22 mg/dL (7-17); Calcium 8.7 mg/dL (8.4-10.2); Carbon Dioxide 29 mmol/L (22-30); Chloride 106 mmol/L (98-107); Estimated CRCL calculation 65 ml/min; Estimated Glomerular Filt Rate > 60; Glucose 101 mg/dL (65-110); Potassium 4.1 mmol/L (3.4-5.0); Sodium 138 mmol/L (137-145); Total Protein 6.1 g/dL (6.3-8.2)
--- OUTSIDE RECORDS SUMMARY | 2025-05-02 07:58 | XMS_ITS | Encounter Summary ---
Author Organization [facility] Healthcare Address [address] [place] [address] Care Team Providers Care Overedge Machine Operator Name Role Phone Katlyn Jones MD Primary Care Provider [phone] Kevon Gaytan MD Unavailable [phone] Oscar Hood MD Primary Care Provider [phone] Anirudh Pena MD Unavailable [phone] Florentino Hood MD Primary Care Provider [phone] Rivas Mcdermott Unavailable [phone] Hema Shelby MD Unavailable [phone] Encounter Details Date Type Department Care Team (Late st Contact Info) Description 03/25/2020 Telephone [facility] [address] [place] [address] Thai Nixon, RT Social History Tobacco Use Types Packs/Day Years Used Date Smoking Tobacco: Never Smokeless Tobacco: Never Alcohol Use Standard Drinks/Week Comments No 0 (1 standard drink = 0.6 oz pur e alcohol) Comments No Sex and Gender Information Value Date Recorded Sex Assigned at Not on file Legal Sex Female 12:18 AM CUSTOMER ACCOUNT MANAGER Gender Identity Not on file Sexual [...] COVID: Suspected 08/27/2022 08/27/2022 08/27/2022 7:54 PM CUSTOMER ACCOUNT MANAGER COVID: Suspected 07/26/2023 07/26/2023 07/26/2023 6:45 PM CUSTOMER ACCOUNT MANAGER documented as of this encounter Care Teams Overedge Machine Operator Relationship Specialty [place] [address] [facility] [address] [place] [address] PCP - General Internal Medicine 04/29/18 05/15/21 Oscar Hood MD [address] [place] [address] PCP - General 05/16/21 08/08/23 Florentino Hood MD [address] [facility] [place] [address] PCP - General Family Medicine 08/09/23 Kevon Gaytan MD [address] [facility] [address] [place] [address] Consulting Physician Cardiology 04/04/21 Anirudh Pena MD [address] [place], [place] [id number] Referring Physician Otolaryngology 05/12/23 Rivas Mcdermott PA [address] [place] [address] Physician Trend Investigator Neurosurgery 10/09/24 Hema Shelby MD [address] [place] [address] Consulting Physician Pulmonary Disease 10/09/24 documented as of this encounter
--- OUTSIDE RECORDS SUMMARY | 2025-05-02 07:58 | XMS_ITS | Encounter Summary ---
Author Organization [facility] Address [address] [place] [address] Care Team Providers Care Naval Gunfire Spotter Name Role Phone Fani Cotton NP Primary Care Provider Crystal Bryant NP Primary Care Provider Unav ailable None, Provider Primary Care Provider Florentino Matthews MD Primary Care Provider [phone] Encounter Details Date Type Department Care Team (Late st Contact Info) Description 02/13/2019 [place] Message Enc 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 Not on file Not on file Not on file documented as of this encounter Plan of Treatment Not on file documented as of this encounter Visit Diagnoses Not on filedocumented in this encounter Additional Health Concerns Infection Onset Date Last Indicated Resolved Time COVID-19 Rule Out 12/31/2023 12/31/2023 12/31/2023 11:43 AM CDT documented as of this encounter Care Teams Naval Gunfire Spotter Relationship Specialty Start Date End Date Fani Cotton NP PCP - General NURSE PRACTITIONER 05/18/18 03/07/20 Crystal Shannon NP PCP - General NURSE PRACTITIONER 03/08/20 04/06/21 None, ProviderMD PCP - General 11/10/21 04/21/22 Florentino Hood MD PCP - General HOSPITALIST 04/22/22 documented as of this encounter
--- OUTSIDE RECORDS SUMMARY | 2025-05-02 07:58 | XMS_ITS | Clinical Summary ---
Author Organization [facility] Address [address] [place] [address] Care Team Providers Care Vision Mixer Name Role Phone Floretnino Hood MD Primary Care Provider [phone] Allergies Active Allergy Reactions Criticality Noted Date [...] of Breath High 03/09/2014 Over sedation Medications Cyanocobalamin (B-12) [address] 1 tablet under the tongue daily. 07/04/19 16 Active REPATHA SURECLICK 140 MG/ML injection (PEN) ADM 1 ML SC Q 14 DAYS 6 05/05/20 18 Active metoprolol tartrate 25 MG tablet Take 3 tablets (75 mg total) by mouth daily. 03/02/20 17 Active nitroglycerin 0.[address] 1 T UNT Q 5 MIN FOR UP TO 3 DOSES PRF CHEST PAIN. CALL 911 IF PAIN PERSISTS 2 12/22/19 18 Active VITAMIN D2, ERGOCALCIFEROL, 18687 UNITS capsuleIndications :Vitamin D deficiency TAKE 1 CAPSULE BY MOUTH EVERY 7 DAYS 4 capsule 03/27/20 20 Active SYNTHROID 200 MCG tabletIndications: Hypothyroidism, postsurgical Take 1 tablet (200 mcg total) by mouth daily. 30 tablet 07/02/19 21 Active Additional Information Patient taking differently: 300 mcgOral Daily, Reported on 12/18/2024 albuterol sulfate HFA 108 (90 Base) MCG/ACT inhaler Inhale 2 puffs into the lungs every 6 (six) hours as needed for Wheezing (cough). 18 g 12/31/19 24 Active Spacer/Aero-Holdin g Chambers (BREATHERITE NIKOLAI SPACER ADULT) MiscIndications:Br onchitis 1 Units by Does not apply route as needed. 1 each 12/31/19 24 Active apixaban (ELIQUIS) 5 MG tablet Take 1 tablet (5 mg total) by mouth 2 (two) times daily. Active hydrALAZINE (APRESOLINE) 25 MG tablet Take 1 tablet (25 mg total) by mouth 3 (three) times daily. 09/02/19 25 Active QUEtiapine (SEROQUEL) 25 MG tablet Take 1 tablet (25 mg total) by mouth nightly at bedtime. 10/10/19 25 Active traMADol (ULTRAM) 50 MG tablet Take 1 tablet (50 mg total) by mouth every 8 (eight) hours as needed for Pain. 10/28/19 25 Active escitalopram (LEXAPRO) 5 MG tablet Take 0.5 tablets (2.5 mg total) by mouth every other day. 10/10/19 25 Active acetaminophen (TYLENOL) 500 MG tablet Take 2 tablets (1,000 mg total) by mouth 3 (three) times daily. 09/02/19 25 Active aspirin EC 81 MG tablet Take 1 tablet (81 mg total) by mouth daily. Active gabapentin (NEURONTIN) 300 MG capsule Take 1 capsule (300 mg total) by mouth 2 (two) times a day. 12/05/19 25 Active lidocaine (LMX) 4 % cream Apply topically 2 (two) times daily. 09/30/19 25 Active losartan (COZAAR) 50 MG tablet Take 1 tablet (50 mg total) by mouth daily. 11/23/19 25 026 Active meclizine (ANTIVERT) 12.5 MG tablet Take 1 tablet (12.5 mg total) by mouth 3 (three) times daily as needed. Active ondansetron (ZOFRAN-ODT) 4 MG disintegrating tablet Take 1 tablet (4 mg total) by mouth as needed. 09/26/19 25 Active pantoprazole EC (PROTONIX) 40 MG tablet Take 1 tablet (40 mg total) by mouth daily. 10/11/19 25 Active tamsulosin (FLOMAX) 0.4 MG Cap Take 1 capsule (0.4 mg total) by mouth nightly. Active Active Problems Problem Noted Date Diagnosed Date Intestinal metaplasia of gastric mucosa 02/07/20 Overview (03/08/2020): Added automatically from request for surgery [id number] Acute upper respiratory infection 11/30/2019 COVID-19 virus detected 11/30/2019 Sore throat 08/02/2019 Secondary hyperparathyroidism 02/24/2019 Kidney cysts 01/23/2019 Angiomyolipoma of right kidney 01/23/2019 History of colon polyps 01/19/2019 Overview (03/08/2020): Overview: Added automatically from request for surgery [id number] Epigastric pain 01/19/2019 Overview (03/08/2020): Overview: Added automatically from request for surgery [id number] Early satiety 01/19/2019 Overview (03/08/2020): Overview: Added automatically from request for surgery [id number] Abnormal CT scan, sigmoid colon 01/03/2019 Shortness [...] Overview: Added automatically from request for surgery [id number] Wrist pain, acute 03/30/2018 Other chest pain [...] cardiomegaly 04/23/2016 Dyslipidemia 01/19/2016 Hypertensive heart disease with congestive heart failure 01/16/2016 Benign hypertension 12/24/2014 Insomnia 11/27/2014 Cervicalgia 10/11/2014 Elevated blood sugar level 09/10/2014 Hypocalcemia 08/29/2014 Cervical spondylosis 02/22/2014 Hypothyroidism, postsurgical 02/21/2014 Cervical disc herniation 02/19/2014 Cystocele without uterine prolapse 08/07/2013 Hyperlipidemia 08/07/2013 Vitamin D deficiency 08/07/2013 Immunizations Immunization Administration Dates Next Due Fluzone Adult - [...] Sex Assigned at Female 05/18/2018 8:26 AM POLICY DIRECTOR Legal Sex Female 8:45 AM CDT Gender Identity Female 05/18/2018 8:26 AM POLICY DIRECTOR Sexual Orientation Straight 05/18/2018 8: 26 AM POLICY DIRECTOR 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 Not on file Not on file Not on file Last Filed Vital Signs Vital Sign Reading Time Taken Comments Blood Pressure 151/69 12/26/2024 1:33 AM CDT Pulse 74 12/26/2024 1:33 AM CDT Temperature 36.4 C (97.5 F) 12/26/2024 1:33 AM CDT Respiratory Rate 17 12/26/2024 1:33 AM CDT Oxygen Saturation 96% 12/26/2024 1:33 AM CDT Inhaled Oxygen Concentration - - Weight 86.2 kg (190 lb) 12/26/2024 12:06 AM CDT Height 172.7 cm (5' 8) 12/26/2024 12:06 AM CDT Body Mass Index 28.89 12/26/2024 12:06 AM CDT Plan of Treatment Health Maintenance Due Date Last Done Comments ASCVD Statin 1955 Hepatitis C 11/16/1975 Pneumococcal Vaccine: 50+ Years (1 of 2 - PCV) 1976 Zoster Vaccines (1 of 2) 11/16/2007 Mammogram Screening 08/29/2015 08/28/2013 RSV Immunization or 60+ Years (1 - Risk 60-74 years 1-dose series) 2017 ASCVD LDL 03/18/2020 03/18/2019, 04/29, 05/18/2018, Additional history exists Annual Medicare Wellness Visit 2022 Dexa Scan (General) 2022 COVID-19 Vaccine ( season) 2025 Influenza Adult (#1) 2025 Colorectal Cancer Screening Colonoscopy (10 Years) 02/16/2029 02/16/2019 DTaP, Tdap and Td Vaccines (2 - Td or Tdap) 04/26/2029 04/26/2019 Hepatitis A Vaccines Aged Out No long er eligible based on patient's age to complete this topic Meningococcal B Vaccine Aged Out No l [...] SCREENING RIAN DIGI Routine 08/28/2013 3:48 PM POLICY DIRECTOR from Last 3 Months or Most Recently Relevant to Health Maintenance Results * LIPID PANEL (03/18/2019 7:40 AM CDT) CHOLESTEROL 143 <200.0 MG/DL 03/18/2019 8:29 AM [facility] TRIGLYCERIDES 74 <150 MG/DL 03/18/2019 8:29 AM [facility] HDL 64 >40.0 MG/DL 03/18/2019 8:29 AM [facility] LDL (CALCULATED) 64 <100 MG/DL 03/18/20 19 8:29 AM [facility] NON HDL CHOLESTEROL 79 <130 MG/DL 03/18 8:29 AM [facility] CHOL/HDL RATIO 2.2 0.0 - 4.5 03/18/2019 8:29 AM [facility] VLDL CALCULATION 15 5 - 55 MG/DL 03/18/2019 8:29 AM [facility] LIPID INTERPRETATION 03/18/2019 8:29 AM [facility] Comment: [facility] CONCENSUS REPORT RECOMMENDATIONS: ADULT CHILD LOW RISK: CHOLESTEROL <200 <170 TRIGLYCERIDE <150 --- HDL >=60 --- LDL <100 <110 BORDERLINE: CHOLESTEROL 200-239 170-199 TRIGLYCERIDE 150-199 --- HDL 40-59 --- LDL 100-159 110-129 HIGH RISK: CHOLESTEROL >=240 >=200 TRIGLYCERIDE >=200 --- HDL <40 --- LDL >=160 >=130 03/18/2019 7:40 AM CDT Fani Cotton NP LABORATORY Final Result [facility] [address] [place] [address], * COLONOSCOPY (02/16/2019) us Documents Scanned SCANNING Edited Result - Final * MG SCREENING RIAN DIGI (08/28/2013 3:48 PM POLICY DIRECTOR) Anatomical Region Laterality Modality Breast Bilateral Mammography 08/28/2013 3:48 PM POLICY DIRECTOR 08/28/2013 3:48 PM POLICY DIRECTOR Narrative 08/28/2013 7:26 PM POLICY DIRECTOR VERO MARQUES ORDERING MD: KATLYN WALTERS MD ACCT: [id number] ADMIT/SERVICE DATE: 08/26/13 DISCHARGE DATE: : 1955 PT TYPE: REG CLI SEX: F ORD SITE: [facility] STUDY DATE REPORT # PROCEDURE CODE PROCEDURE 08/26/13 [id number] SCMAMDGB MG SCREEN MAMMO DIGITAL BI EXTORDERID [id number] CHART DOCUMENT DIVISION OF RADIOLOGY ACCESSION # EXAM DATE EXAM DESCRIPTION [id number] 08/26/2013 MG SCREEN MAMMO DIGITAL BI IMAGING [...] 08/28/2013 4:00 P JOB NO: DOC NO: [id number] CC: Procedure Note Mary Anglin MD - 04/20/2018 VERO MARQUES ORDERING MD: KATLYN WALTERS MD ACCT: [id number] ADMIT/SERVICE DATE: 08/26/13 DISCHARGE DATE: : 1955 PT TYPE: REG CLI SEX: F ORD SITE: [facility] STUDY DATE REPORT # PROCEDURE CODE PROCEDURE 08/26/13 [id number] SCMAMDGB MG SCREEN MAMMO DIGITAL BI EXTORDERID [id number] CHART DOCUMENT DIVISION OF RADIOLOGY ACCESSION # EXAM DATE EXAM DESCRIPTION [id number] 08/26/2013 MG SCREEN MAMMO DIGITAL BI IMAGING [...] SIGNED BY SERGIO HERNANDEZ MD 08/28/2013 19:25 CRR/MAGNOLIA 08/28/2013 3:48 P 08/28/2013 4:00 P JOB NO: DOC NO: [id number] CC: Katlyn Walters MD MAMMO Final Result from Last 3 Months or Most Recently Relevant to Health Maintenance Insurance MEDICARE Advance Directives Healthcare Agents on File Name Relationship Healthcare Agent [facility] p Communication Brian Marques Spouse Health Care Agent Care Teams Vision Mixer Relationship Specialty Start Date End Date Florentino Hood MD PCP - General HOSPITALIST 04/22/22
--- OUTSIDE RECORDS SUMMARY | 2025-05-02 07:58 | XMS_ITS | Encounter Summary ---
Author Organization [facility] Healthcare Address [address] [place] [address] Care Team Providers Care Senior Materials Scientist Name Role Phone Katlyn Jones MD Primary Care Provider [phone] Kevon Gaytan MD Unavailable [phone] Oscar Hood MD Primary Care Provider [phone] Anirudh Pena MD Unavailable Florentino Hood MD Primary Care Provider [phone] Rivas Mcdermott Unavailable [phone] Hema Shelby MD Unavailable [phone] Encounter Details Date Type Department Care Team (Late st Contact Info) Description 07/02/2020 Telephone [facility] Medicine [address] [place] [address] Leatha Truong RDMS Social History Tobacco Use Types Packs/Day Years Used Date Smoking Tobacco: Never Smokeless Tobacco: Never Alcohol Use Standard Drinks/Week Comments No 0 (1 standard drink = 0.6 oz pur e alcohol) Comments No Sex and Gender Information Value Date Recorded Sex Assigned at Not on file Legal Sex Female 12:18 AM PLANT ASSOCIATE Gender Identity Not on file Sexual Orientation [...] COVID: Suspected 08/27/2022 08/27/2022 08/27/2022 7:54 PM PLANT ASSOCIATE COVID: Suspected 07/26/2023 07/26/2023 07/26/2023 6:45 PM PLANT ASSOCIATE documented as of this encounter Care Teams Senior Materials Scientist Relationship Specialty [place] [address] [facility] [address] [place] [address] PCP - General Internal Medicine 04/29/18 05/15/21 Oscar Hood MD [address] [place] [address] PCP - General 05/16/21 08/08/23 Florentino Hood MD [address] [facility] [place] [address] PCP - General Family Medicine 08/09/23 Kevon Gaytan MD [address] [facility] [address] [place] [address] Consulting Physician Cardiology 04/04/21 Anirudh Pena MD [address] [place] [address] Referring Physician Otolaryngology 05/12/23 Rivas Mcdermott PA [address] [place] [address] Physician Clinical Pharmacy Manager Neurosurgery 10/09/24 Hema Shelby MD [address] [place] [address] Consulting Physician Pulmonary Disease 10/09/24 documented as of this encounter
--- OUTSIDE RECORDS SUMMARY | 2025-05-02 07:58 | XMS_ITS | Encounter Summary ---
Author Organization [facility] Address [facility] [place] [address] Care Team Providers Care Offset Press Operator Apprentice Name Role Phone Fani Cotton NURSERYMAN ASSISTANT Primary Care Provider Crystal Bryant NP Primary Care Provider Unav ailable None, Provider Primary Care Provider Florentino Matthews MD Primary Care Provider [phone] Encounter Details Date Type Department Care Team (Late st Contact Info) Description 09/28/2018 Abstract [facility] CONVERSION [address] [place] [address] , Generic Conversion, Social History Tobacco Use [...] Sex Assigned at Female 05/18/2018 8:26 AM SALES AMBASSADOR Legal Sex Female 8:45 AM CDT Gender Identity Female 05/18/2018 8:26 AM SALES AMBASSADOR Sexual Orientation Straight 05/18/2018 8: 26 AM SALES AMBASSADOR 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 Not on file Not on file Not on file documented as of this encounter Plan of Treatment Not on file documented as of this encounter Visit Diagnoses Not on filedocumented in this encounter Additional Health Concerns Infection Onset Date Last Indicated Resolved Time COVID-19 Rule Out 12/31/2023 12/31/2023 12/31/2023 11:43 AM CDT documented as of this encounter Care Teams Offset Press Operator Apprentice Relationship Specialty Start Date End Date Fani Cotton NP PCP - General NURSE PRACTITIONER 05/18/18 03/07/20 Crystal Shannon NP PCP - General NURSE PRACTITIONER 03/08/20 04/06/21 None, ProviderMD PCP - General 11/10/21 04/21/22 Florentino Hood MD PCP - General HOSPITALIST 04/22/22 documented as of this encounter
--- OUTSIDE RECORDS SUMMARY | 2025-05-02 07:58 | XMS_ITS | Clinical Summary ---
Author Organization [facility], [facility]ly [facility] al Address [address] [place] [address] Care Team Providers Care Bike Shop Manager Name Role Phone Kevon Gaytan MD Unavailable Anirudh Pena MD Unavailable [phone] Florentino Hood MD Primary Care Provider [phone] Rivas Mcdermott Unavailable [phone] Hema Shelby MD Unavailable [phone] Allergies Active Allergy Reactions Criticality Noted Date [...] 1 tablet (300 mcg total) by mouth early childhood educator aide before breakfast 10/28/19 22 Active vitamin D3-vitamin [...] (06/16/2021): Added automatically from request for surgery [id number] COVID-19 virus infection 05/23/2021 Prediabetes 05/01/2021 History of thyroidectomy 04/10/2021 Hypothyroidism 03/24/2021 Assessment & Plan (01/26/2024 7:25 PM CDT): Continue home synthroid Primary osteoarthritis of left knee 01/01/2021 Intestinal metaplasia of gastric mucosa 02/07/20 Overview (02/07/2020): Added automatically from request for surgery [id number] Acute upper respiratory infection 11/30/2019 COVID-19 virus infection 11/30/2019 Pre-operative cardiovascular examination 020 Overview (10/27/2019): Added automatically from request for surgery [id number] Sore throat 08/02/2019 Secondary hyperparathyroidism 02/24/2019 Epigastric discomfort 02/03/2019 Overview (02/03/2019): Added automatically from request for surgery [id number] Angiomyolipoma of right kidney 01/23/2019 Complex renal [...] (01/19/2019): Added automatically from request for surgery [id number] Early satiety 01/19/2019 Overview (01/19/2019): Added automatically from request for surgery [id number] History of colon polyps 01/19/2019 Overview (01/20/2019): Added automatically from request for surgery [id number] Abnormal CT scan, sigmoid colon 01/03/2019 Chronic fatigue 11/16/2018 Gastritis 11/16/2018 Shortness of breath 11/16/2018 Sinusitis 10/27/2018 Acute streptococcal pharyngitis 09/28/2018 Weight gain 09/28/2018 Nausea and vomiting 08/18/2018 Parasites in stool 08/18/2018 Coronary artery disease invo lving buckland coronary artery of buckland heart without angina pectoris 05/05/2018 Overview (05/05/2018): Added automatically from request for surgery [id number] Abnormal EKG 05/05/2018 Overview (05/05/2018): Added automatically from request for surgery [id number] HTN (hypertension), benign 04/30/2018 Assessment & Plan [...] Department Care Team Description 04/26/2025 Orders Only [facility] Orthopaedic Surgery [address] [place] [address] Robert Ledesma Todd Primary osteoarthritis of right hip (Primary Dx); Hip pain, right 04/09/2025 10:15 AM CDT Office Visit [facility] [address] [place] [id number] Hema Shelby MD PTE (pulmonary thromboembolism) (Primary Dx) 02/07/2025 2:15 PM CDT Office Visit [facility] Cardiology [address] [place] [address] Kevon Gaytan MD Chest pain, unspecified type (Primary Dx); Coronary artery disease involving buckland coronary artery of buckland heart without angina pectoris; Benign hypertension 01/31/2025 10:02 AM CDT - 01/31/2025 11:59 PM CDT Hospital Encounter [facility] [address] [place] [address] Anuj Shukla MD Hip pain, right Discharge Disposition: Discharge to home or self care from Last 3 Months Immunizations Immunization Administration [...] drink = 0.6 oz pur e alcohol) [facility] Utilities Answer Date Recorded In the past 12 months has e electric, gas, oil, or water company [...] week 10/07/2024 How often do you attend chur ch or confucianist services? More than 4 times per year 10/07/2024 Do you belong to any clubs o r organizations such as uatsdin groups, unions, fraternal or athletic groups, or [...] time in the past 12 m [facility], were you homeless or living in a mcfp (including now)? No 10/07/2024 Personal Safety Answer Date Recorded Have you ever been in or are you currently in a harmful physical or emotional relationship or is someone making you feel afraid or unsafe? Denies 01/03/2025 Comments No Sex and Gender Information Value Date Recorded Sex Assigned at Not on file Legal Sex Female 12:18 AM CORPORATE COMMUNICATIONS MANAGER Gender Identity Not on file Sexual [...] the likelihood of falling Lifestyle No Katlyn Campa, RN Note: Below are four things you [...] on stairs Contact your local community or [facility] for information on exercise, fall prevention programs, or options for improving home safety. Medical Devices Implanted Type Area Commodity Trader Device Identifier Shelf Expiration Date Model / Serial / Lot Stent Implanted:Qty: 5 on 12/07/2012 Stent N/A: Coronary Artery Cervical Spine Ortho Hardware (Cage) Spine Cervical Rt Total Knee Arthroplasty- Implanted:11/07 (Quantity not on file) Right: Knee [employer] [id number] Attune Cemented Posterior Stabilize Knee Left 5 Component Femoral - [id number] Implanted:Qty: 1 on 05/07/2021 by Roney Saldaña MD at [facility] Left: Knee [employer] [id number] / / [employer] [id number] Attune S+ Cement Fix Bearing Knee 5 Baseplate Tibial - [id number] Implanted:Qty: 1 on 05/07/2021 by Roney Saldaña MD at [facility] Left: Knee [employer] [id number] / / [employer] 6197-9-010 Simplex P Full Dose Radiopaque Preblend Cement Bone Tobramycin - [id number] Implanted:Qty: 1 on 05/07/2021 by Roney Saldaña MD at [facility] Left: Knee [employer] [id number] / / [employer] [id number] Simplex P Full Dose Radiopaque Preblend Cement Bone Tobramycin - [id number] Implanted:Qty: 1 on 05/07/2021 by Roney Saldaña MD at [facility] Left: Knee [employer] 6197-9-010 / / [employer] [id number] Simplex P Full Dose Radiopaque Preblend Cement Bone Tobramycin - [id number] Implanted:Qty: 1 on 05/07/2021 by Roney Saldaña MD at [facility] Left: Knee [employer] [id number] / / [employer] [id number] Attune 6mm Posterior Stabilize Fix Bearing Knee 5 Insert Tibial - [id number] Implanted:Qty: 1 on 05/07/2021 by Roney Saldaña MD at [facility] Left: Knee [employer] [id number] / / Procedures Procedure Name Priority Date/Time [...] Female Attending MD: Mando Bonilla M.D. Room: [facility] ENDOSCOPY ROOM 03 Note Status: Finalized [...] The scope was passed under direct vision.The [id number] was introduced through the anusand advanced to [...] During normal business hours - [facility] Coord[facility]: [phone] After hours, evening, nights, weekends and holidays- Please call the hospital ruffling machine operator at and ask for the GI fellow qa automation developer. Attending Participation: I personally performed the entire procedure. Electronically signed by Mando Bonilla MD Mando Bonilla M.D. 04/01/2022 11:02:27 AM Number of Addenda: 0 Note Initiated On: 04/01/2022 10:41 AM Mando Bonilla MD ENDOSCOPY PROCEDURES Final Result from Last 3 Months or Most Recently Relevant to Health Maintenance Insurance BLUE ACCESS OOS MEDICARE [facility] OOS MEDICARE BLUE ACCESS OOS Advance Directives For more information, please contact: [phone] Documents on File Type Date Recorded Patient Tuck Pointer Helper Expl anation ADVANCE DIRECTIVE 01/14/2019 1:58 PM P[employer] OF [employer]-FINANCIAL/MEDICAL * Full Code (Latest Code Status on [...] 4:53 PM 01/28/2024 6:33 PM Care Teams Bike Shop Manager Relationship Specialty Start Date End Date Florentino Hood MD [address] [place] [address] PCP - General Family Medicine 08/09/23 Kevon Gaytan MD [address] [facility] [address] [place] [address] Consulting Physician Cardiology 04/04/21 Anirudh Pena MD [address] [place] [address] Referring Physician Otolaryngology 05/12/23 Rivas Mcdermott PA [address] [place] [address] Physician Vulnerability Assessment Analyst Neurosurgery 10/09/24 Hema Shelby MD [address] [place] [address] Consulting Physician Pulmonary Disease 10/09/24
--- OUTSIDE RECORDS SUMMARY | 2025-05-02 07:58 | XMS_ITS | Encounter Summary ---
Author Organization [facility] Address [address] [place] [address] Care Team Providers Care Health Type Technician Name Role Phone Fani Cotton COST ESTIMATING MANAGER Primary Care Provider Crystal Bryant NP Primary Care Provider Unav ailable None, Provider Primary Care Provider Florentino Matthews MD Primary Care Provider [phone] Encounter Details Date Type Department Care Team (Late st Contact Info) Description 05/01/2015 Abstract [facility] CONVERSION [address] [place] [address] , Generic Conversion, Social History Tobacco Use Types Packs/Day Years Used Date Smoking Tobacco: Never Assessed Comments Unknown Sex and Gender Information Value Date Recorded Sex Assigned at Female 05/18/2018 8:26 AM BRINE MIXER OPERATOR Legal Sex Female 8:45 AM CDT Gender Identity Female 05/18/2018 8:26 AM BRINE MIXER OPERATOR Sexual Orientation Straight 05/18/2018 8: 26 AM BRINE MIXER OPERATOR documented as of this encounter Plan of Treatment Not on file documented as of this encounter Visit Diagnoses Not on filedocumented in this encounter Additional Health Concerns Infection Onset Date Last Indicated Resolved Time COVID-19 Rule Out 12/31/2023 12/31/2023 12/31/2023 11:43 AM CDT documented as of this encounter Care Teams Health Type Technician Relationship Specialty Start Date End Date Fani Cotton NP PCP - General NURSE PRACTITIONER 05/18/18 03/07/20 Crystal Shannon NP PCP - General NURSE PRACTITIONER 03/08/20 04/06/21 None, Provider, PCP - General 11/10/21 04/21/22 Florentino Hood MD PCP - General HOSPITALIST 04/22/22 documented as of this encounter
--- OUTSIDE RECORDS SUMMARY | 2025-05-02 07:58 | XMS_ITS | Clinical Summary ---
Author Organization [facility] Address [address] [place] [address] Care Team Providers Care Internal Recruiter Name Role Phone Azucena Peres RN Unavailable [phone] Florentino Hood Primary Care Provider [phone] Source Comments [facility],non-owned Affiliates and Associated Physician Practices is amultiple site organization consisting of ambulatory clinics and hospital sitesin [place], [place], [place] and [place]. This disclosure is being madepursuant to the Care Everywhere program and may not contain all information available regarding this patient. Last updated 18.[facility] Allergies Active Allergy Reactions Criticality Noted Date Comments Acetaminophen-Codeine Nausea and/or Vomiting Medium N/V and off balance Amlodipine Base Angioedema High 07/20/2016 Cochlearia Armoracia Anaphylaxis High 02/20/2014 Codeine Nausea and/or Vomiting,CASH ROOM CLERK Dysfunction High 03/09/2014 Oversedation Propoxyphene N-Apap CASH ROOM CLERK Dysfunction High 03/09/2014 [employer]versedation Hydromorphone CASH ROOM CLERK Dysfunction High 03/09/2014 Oversedation Fentanyl CASH ROOM CLERK Dysfunction High 03/09/2014 Oversedation Isosorbide Angioedema High 06/23/2017 Morphine CASH ROOM CLERK Dysfunction High 03/09/2014 [employer]versedation Oxycodone CASH ROOM CLERK Dysfunction High 06/11/2016 Oversedation Prochlorperazine Angioedema High 08/21/2024 Propoxyphene CASH ROOM CLERK Dysfunction High 03/09/2014 Over sedation Medications * [...] vitamin D, ergocalciferol , (Drisdol) 1.25 MG (95693 UT) capsule TAKE 1 CAPSULE BY MOUTH [...] (08/21/2024): Added automatically from request for surgery [id number] Prediabetes 05/01/2021 Primary osteoarthritis of left knee 01/01/2021 Intestinal metaplasia of gastric mucosa 02/07/20 Overview (08/21/2024): Added automatically from request for surgery [id number] Gastritis 11/16/2018 Obstructive sleep apnea syndrome 01/22/2017 [...] (08/21/2024): Added automatically from request for surgery [id number] History of colon polyps 01/19/201907/30 Overview (08/21/2024): Added automatically from request for surgery [id number] Chronic fatigue 11/16/2018 08/21/2024 Acute streptococcal pharyngitis [...] Recorded Patient Health Questionnaire-2 Score 0 08/31/2024 [facility] [place] [facility] Occupat ional Health - Occupational Stress [...] any time in the past 12 m [facility], were you homeless or living in a group home (including now)? No 08/17/2024 Comments No [...] CDT Respiratory Rate 18 09/01/2024 5:11 AM HEALTH COMPANION Oxygen Saturation 94% 11/01/2024 3:33 PM CDT [...] this topic Medical Devices Implanted Type Area University Intern Device Identifier Shelf Expiration Date Model / Serial / Lot Grnyla Tiss Rep Xenform 4 X 7cm Implanted:Qty: 1 on 03/14/2014 by Anirudh Payton MD at [facility] [employer] 03/27/2016 [id number] / / [id number] Procedures Procedure Name Priority Date/Time Associated Diagnosis Comments GLUCOSE - POINT OF CARE Routine 09/01/2024 12:07 AM HEALTH COMPANION from Last 3 Months or Most Recently Relevant to Health Maintenance Results * (ABNORMAL) GLUCOSE - POINT OF CARE (09/01/2024 12:07 AM HEALTH COMPANION) [facility] Glucose WB/POC 148(H) 70 - 99 mg/dL 09/01/2024 4:31 AM HEALTH COMPANION [facility] Specimen Type Cap Fingerstick 2024 4:31 AM HEALTH COMPANION [facility] Blood BLOOD SPECIMEN / Unknown 09/01/2024 12:07 AM HEALTH COMPANION 09/01/2024 4:31 AM HEALTH COMPANION Darryl Osullivan MD LAB - POINT OF CARE ORDERABLES Final Result [facility] [address] [place] [address], [facility] [phone] from Last 3 Months or Most Recently Relevant to Health Maintenance Insurance MEDICARE ANTHEM Advance Directives Documents on File Type Date Recorded Patient Senior Web Applications Developer Expl anation Adv Directive/Living Will/POA 09/04/2024 10:44 AM * Full Code (Latest Code Status on File) Date Activated Date Inactivated Comments 08/17/2024 1:19 PM 09/01/2024 5:57 PM * Full Code Date Activated Date Inactivated Comments 03/14/2014 5:19 PM 03/15/2014 12:59 PM Care Teams Internal Recruiter Relationship Specialty Start Date End Date Florentino Hood [address] [place] [address] PCP - General 11/01/24 Azucena Peres, CAITLIN Surgical Scrub Technologist 03/15/14
--- OUTSIDE RECORDS SUMMARY | 2025-05-02 07:58 | XMS_ITS | Encounter Summary ---
Author Organization [facility] Address [facility] [place] [address] Care Team Providers Care Rn Care Transition Name Role Phone Fani Cotton NP Primary Care Provider Crystal Bryant NP Primary Care Provider Unav ailable None, Provider Primary Care Provider Florentino Matthews MD Primary Care Provider Encounter Details Date Type Department Care Team (Late st Contact Info) Description 07/16/2019 [employer] Message Enc [facility] Medical Group Family & Internal Medicine [facility] [address] [place] [address] Fani Cotton, BERNY RE: Test [...] Sex Assigned at Female 05/18/2018 8:26 AM INVESTIGATION DIVISION SERGEANT Legal Sex Female 8:45 AM CDT Gender Identity Female 05/18/2018 8:26 AM INVESTIGATION DIVISION SERGEANT Sexual Orientation Straight 05/18/2018 8: 26 AM INVESTIGATION DIVISION SERGEANT 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 Not on file Not on file Not on file documented as of this encounter Plan of Treatment Not on file documented as of this encounter Visit Diagnoses Not on filedocumented in this encounter Additional Health Concerns Infection Onset Date Last Indicated Resolved Time COVID-19 Rule Out 12/31/2023 12/31/2023 12/31/2023 11:43 AM CDT documented as of this encounter Care Teams Rn Care Transition Relationship Specialty Start Date End Date Fani Cotton NP PCP - General NURSE PRACTITIONER 05/18/18 03/07/20 Crystal Shannon NP PCP - General NURSE PRACTITIONER 03/08/20 04/06/21 None, ProviderMD PCP - General 11/10/21 04/21/22 Florentino Hood MD PCP - General HOSPITALIST 04/22/22 documented as of this encounter
--- OUTSIDE RECORDS SUMMARY | 2025-05-02 07:58 | XMS_ITS | Encounter Summary ---
Author Organization [facility] Address [address] [place] [address] Care Team Providers Care Formal Waiter/Waitress Name Role Phone Fani Cotton NP Primary Care Provider Crystal Bryant NP Primary Care Provider Unav ailable None, Provider Primary Care Provider Florentino Matthews MD Primary Care Provider [phone] Encounter Details Date Type Department Care Team (Late st Contact Info) Description 02/11/2019 [employer] Message Enc [facility] Medical Group Family & Internal Medicine [facility] [address] [place] [address] Fani Cotton, BERNY RE: Test [...] Sex Assigned at Female 05/18/2018 8:26 AM GAS FITTER HELPER Legal Sex Female 8:45 AM CDT Gender Identity Female 05/18/2018 8:26 AM GAS FITTER HELPER Sexual Orientation Straight 05/18/2018 8: 26 AM GAS FITTER HELPER 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 Not on file Not on file Not on file documented as of this encounter Plan of Treatment Not on file documented as of this encounter Visit Diagnoses Not on filedocumented in this encounter Additional Health Concerns Infection Onset Date Last Indicated Resolved Time COVID-19 Rule Out 12/31/2023 12/31/2023 12/31/2023 11:43 AM CDT documented as of this encounter Care Teams Formal Waiter/Waitress Relationship Specialty Start Date End Date Fani Cotton NP PCP - General NURSE PRACTITIONER 05/18/18 03/07/20 Crystal Shannon NP PCP - General NURSE PRACTITIONER 03/08/20 04/06/21 None, ProviderMD PCP - General 11/10/21 04/21/22 Florentino Hood MD PCP - General HOSPITALIST 04/22/22 documented as of this encounter
--- OUTSIDE RECORDS SUMMARY | 2025-05-02 07:58 | XMS_ITS | Encounter Summary ---
Author Organization [facility] Address [address] [place] [address] Phone Care Team Providers Care Wastewater Treatment Plant Chemist Name Role Phone Katlyn Jones MD Primary Care Provider [phone] Kevon Gaytan MD Unavailable [phone] Oscar Hood MD Primary Care Provider [phone] Anirudh Pena MD Unavailable Florentino Hood MD Primary Care Provider [phone] Rivas Mcdermott Unavailable [phone] Hema Shelby MD Unavailable [phone] Encounter Details Date Type Department Care Team [...] on file Legal Sex Female 12:18 AM FACING BASTER Gender Identity Not on file Sexual Orientation [...] COVID: Suspected 08/27/2022 08/27/2022 08/27/2022 7:54 PM FACING BASTER COVID: Suspected 07/26/2023 07/26/2023 07/26/2023 6:45 PM FACING BASTER documented as of this encounter Care Teams Wastewater Treatment Plant Chemist Relationship Specialty [place] [address] [facility] [address] [place] [address] PCP - General Internal Medicine 04/29/18 05/15/21 Oscar Hood MD [address] [place] [address] PCP - General 05/16/21 08/08/23 Florentino Hood MD [address] [facility] [place] [address] PCP - General Family Medicine 08/09/23 Kevon Gaytan MD [address] [facility] [address] [place] [address] Consulting Physician Cardiology 04/04/21 Anirudh Pena MD [address] [place], [place] [address] Referring Physician Otolaryngology 05/12/23 Rivas Mcdermott PA [address] [place] [address] Physician Manager Enterprise Content Management Neurosurgery 10/09/24 Hema Shelby MD [address] [facility] [address] [place] [address] Consulting Physician Pulmonary Disease 10/09/24 documented as of this encounter
[2025-05-02] MEDS: LOSARTAN POTASSIUM 50 MG TABLET PO (10:08)
[2025-05-02] MEDS: hydrALAZINE 12.5 MG TABLET PO ×2 (10:08→17:08)
[2025-05-02] MEDS: PERFLUTREN LIPID MICROSPHERES 1.5 ML VIAL DILUTED TO 10 ML TOTAL VOLUME IV PUSH (11:15)
--- NOTE | 2025-05-02 13:54 | IVDEFINITY ---
Prior to administration of IV Definity the patient was educated on the risks and benefits of the imaging enhancing agent including potential adverse side effects. The patient verbalized understanding. Allergies were verified. No exclusion criteria were identified and at least one of the following inclusion criteria were met: 1) physician request, 2) patient technically difficult to image (per the [place] [employer] Echocardiography guidelines of two or more segments not discernable within the apical view), or 3) questionable left ventricular function. ?
--- NOTE | 2025-05-02 14:18 | WPDNEURCNPN ---
Assessment and Plan Assessment and plan (1) TIA (transient ischemic attack): Code(s): G45.9 - Transient cerebral ischemic attack, unspecified Status: Acute Plan 1. TIA considering that the computers were not function she is awaiting for the further studie, CTA of the head and neck was done in the emergency room which revealed only atherosclerotic plaques of 0% stenosis but otherwise no significant abnormalities particularly there is no evidence of aneurysm or abnormality of the posterior circulation. While all the medications being continued MRI of the brain will be obtained before any further recommendations are made. Consult date: 05/02/25 HPI: Sarah Justice is a 69 year old female Admitted to the hospital through the emergency room for the complaints of sudden onset severe pain in her right alevism and right eye there is numbness of the face in addition to history of hemorrhagic stroke in July of this year with resultant visual field defect. Patient has been receiving aspirin 81mg daily, hydralazine 12.5mg twice a day, levothyroxine 300mcg daily, losartan 50mg daily, metoprolol 75mg at night, Seroquel 25mg at nights, torsemide 20mg daily, and p.r.n. medication including tramadol. Patient reportedly allergic to multiple medications as outlined. Patient has ongoing history of 1. Hypothyroidism 2. Coronary artery disease with history of bypass graft 3. Hypertension 4. Hyperlipidemia she is never a smoker and never alcohol drinker. Initial exam in the emergency room was normal with vital signs being normal as well except the blood pressure 153/64, initial CBC abnormal with hemoglobin 9.5, BMP with BUN of 25, mast scan normal, Review of Systems Review of Systems: All systems reviewed & are unremarkable except as noted in HPI and below PMFSH Past Medical History Medical History CAD (coronary artery disease) Personal history of DVT (deep vein thrombosis) Bilateral primary osteoarthritis of hip Hypothyroidism CAD (coronary artery disease) of artery bypass graft Hyperlipidemia Hypertension Surgical History Surgical History History of percutaneous coronary intervention Family History Family History Other Cerebrovascular accident Family history of arthritis Family history of thyroid disease Hypertension Social History Social History Smoking status: Never smoker Alcohol intake: never Substance use: never Lack of Transportation: No Lack of Food: Never True Current Housing: I Have Housing Concerned About Future Housing: No Difficulty Paying Gas/Electric Bills: No Difficulty Paying for Meds: No Currently Unemployed: No Education: High School Diploma/GED Difficulty w/ Childcare or Family Care: No Spiritual care concerns: No Meds Home Medications and Allergies Home Medications ?Medication ?Instructions ?Recorded ?Confirmed ?Type aspirin 81 mg tablet,delayed 81 mg PO HS 05/01/25 05/01/25 History release (Adult Aspirin Regimen) ergocalciferol (vitamin D2) 1,250 1,250 mcg PO WEEKLY 05/01/25 05/01/25 History mcg (50,000 unit) capsule evolocumab 140 mg/mL subcutaneous 140 mg subcut .COMPLEX 05/01/25 05/01/25 History pen injector (Jasmin Roblero) hydralazine 25 mg tablet 12.5 mg PO BID 05/01/25 05/01/25 History levothyroxine 300 mcg tablet 300 mcg PO DAILY@0630 05/01/25 05/01/25 History losartan 50 mg tablet 50 mg PO DAILY 05/01/25 05/01/25 History meclizine 12.5 mg tablet 12.5 mg PO Q8H PRN dizziness 05/01/25 05/01/25 History metoprolol succinate 25 mg 75 mg PO HS 05/01/25 05/01/25 History tablet,extended release 24 hr ondansetron 4 mg disintegrating 4 mg PO Q8H PRN nausea and vomiting 05/01/25 05/01/25 History tablet quetiapine 25 mg tablet 25 mg PO HS 05/01/25 05/01/25 History torsemide 20 mg tablet 20 mg PO DAILY PRN swelling 05/01/25 05/01/25 History tramadol 50 mg tablet 50 mg PO Q8H PRN pain 05/01/25 05/01/25 History Allergies Allergy/AdvReac Type Severity Reaction Status Date / Time acetaminophen (From Allergy Intermediate BREATHING Verified 05/01/25 12:35 Darvocet-N) DIFFICULTIES propoxyphene (From Allergy Intermediate BREATHING Verified 05/01/25 12:35 Darvocet-N) DIFFICULTIES codeine Allergy Unknown Difficulty Verified 05/01/25 12:35 Breathing morphine Allergy Unknown Difficulty Verified 05/01/25 12:35 Breathing duloxetine (From Cymbalta) AdvReac Confusion Verified 05/01/25 12:37 HORSERADISH Allergy Severe BREATHING Uncoded 03/13/11 19:53 DIFFICULTIES Vital Signs Vital Signs - 24 hr 05/01/25 16:00 05/01/25 17:46 05/01/25 20:00 Temperature Pulse Rate 65 65 Respiratory Rate Blood Pressure 149/69 H Pulse Oximetry Oxygen Delivery 05/01/25 20:26 05/01/25 20:48 05/01/25 20:49 Temperature 36.5 C Pulse Rate 70 67 Respiratory Rate 20 Blood Pressure 123/46 L Pulse Oximetry 97 Oxygen Delivery Room Air 05/01/25 20:57 05/02/25 00:00 05/02/25 04:00 Temperature Pulse Rate 76 57 L Respiratory Rate Blood Pressure Pulse Oximetry 97 Oxygen Delivery Room Air 05/02/25 05:14 05/02/25 08:00 05/02/25 10:18 Temperature 36.7 C Pulse Rate 58 L 62 Respiratory Rate 20 Blood Pressure 149/62 H Pulse Oximetry 100 Oxygen Delivery Room Air 05/02/25 12:00 05/02/25 13:53 Temperature 36.8 C Pulse Rate 71 60 Respiratory Rate 12 Blood Pressure 139/51 L Pulse Oximetry 97 Oxygen Delivery Exam Narrative: exam revealed her to be awake alert cooperative with normal full speech without evidence of dysphagia or dysarthria, right and left and recent remote memory fair. Head normocephalic with no bruit, ear nose throat examination normal, neck supple, heart regular, lungs clear, abdomen is soft, neurological examination reveals her to be awake alert oriented x3 with normal fluent speech, pupils round regular feels the vision full extraocular movements full face symmetrical tongue midline admission revealed grossly no focal motor deficit and the reflexes are symmetrical. Results Labs 05/02/25 04:52 05/02/25 04:52 Labs: Short CBC 05/02/25 Range/Units 04:52 WBC 5.0 (4.5-10.0) K/mm3 Hgb 8.7 L (12.0-15.0) g/dL Hct 29.7 L (37.0-47.0) % Plt Count 275 (150-375) k/mm3 BMP 05/02/25 04:52 Sodium 138 Potassium 4.1 Chloride 106 Carbon Dioxide 29 BUN 22 H Creatinine 0.85 Glucose 101 Calcium 8.7 Liver Function 05/02/25 Range/Units 04:52 Total Bilirubin 0.3 (0.2-1.3) mg/dL AST 19 (14-36) U/L ALT 12 (6-35) U/L Alkaline Phosphatase 73 (38-126) U/L Albumin 3.4 L (3.5-5.1) g/dL
--- NOTE | 2025-05-02 17:21 | PM.IMPN ---
Progress Note: A&P Assessment and Plan (1) TIA (transient ischemic attack): Code(s): G45.9 - Transient cerebral ischemic attack, unspecified Status: Acute Assessment and Plan: Consideration for TIA this time given onset of symptoms and transient nature however recurrent nature is concerning for more serious etiology occurring at this time. Patient has not had recurrence of symptoms during hospitalization. Brain MRI has been ordered, patient is to continue aspirin Patient cannot tolerate statin, as such she is on Repatha every 2 weeks. Next dose is 05/14. Neurology consulted, awaiting MRI results Echocardiogram also ordered to rule out cardiac etiologies, patient had 1 about 2 months ago however no bubble study was done will be needed. As such echo with bubble study has been ordered (2) CAD (coronary artery disease): Code(s): I25.10 - Atherosclerotic heart disease of [place] coronary artery without angina pectoris Status: Acute Assessment and Plan: Per patient has had 5 stents currently denies chest pain and is on aspirin and Repatha (3) Anxiety: Code(s): F41.9 - Anxiety disorder, unspecified Status: Acute Assessment and Plan: Patient has had resultant anxiety since prior CVA in July, currently on Seroquel 1 dose in the afternoon and 1 dose at bedtime Continue same (4) Bilateral primary osteoarthritis of hip: Code(s): M16.0 - Bilateral primary osteoarthritis of hip Status: Acute Assessment and Plan: History of significant osteoarthritis of the hip, patient says she is due for replacement however due to recent events has not been apparent good surgical candidate. She normally goes for injections and takes tramadol p.r.n. as well as naproxen p.r.n. for symptoms Will continue tramadol and naproxen p.r.n. (5) Personal history of DVT (deep vein thrombosis): Code(s): Z86.718 - Personal history of other venous thrombosis and embolism Status: Acute Assessment and Plan: Status post apixaban course for 6 months, she completed several weeks ago Standard DVT prophylaxis at this time Subjective Date/time seen: 05/02/25 17:21 Interval history: The patient is a 69-year-old female history of CAD status post 5 stents, history of total knee arthroplasty, renal cell carcinoma status post ablation and treatment, hypertension, hyperlipidemia, prediabetes, most notably recent hemorrhagic thalamic stroke July of this year and subsequent DVT/PE treated with apixaban for 6 months (completed treatment about 2 weeks ago) presenting now with onset of right-sided eye pain, sharp, lateral, followed-up by black spots in the left eye and blurred vision that initially lasted several minutes, with a subsequent episode lasted about 40-50 seconds. She had another episode during evaluation that was also transient. Symptoms are accompanied by a sensation of numbness in the distal aspect of the right arm, right foot, and refer her mouth, lip which lasted about 30-40 minutes before completely resolving. Denies any other problems with paresis or paralysis at this time. She is swallowing well. She is ambulating normally. She has had residual left eye ptosis since CVA in July that is usually present when she is very tired. Given prior CVA earlier this year, patient was highly concerned about symptoms and decided to present through the emergency room. Patient was subsequently admitted with MRI order in place and pending. Review of Systems Review of Systems: All systems reviewed & are unremarkable except as noted in HPI and below Exam Const: General: comfortable and no acute distress HENMT: Face/Nose/Sinus: Normal nares present Mouth: Yes moist mucous membranes Eyes: General: appearance normal, both eyes and all related structures Sclera: sclerae normal Pupils: Equal, round and reactive pupils present EOM: EOMs intact bilaterally Neck: Neck: supple and no JVD Resp: Effort & Inspection: normal respiratory effort Auscultation: clear to auscultation bilaterally Cardio: Rate: regular rate Rhythm: regular rhythm GI: GI Palp: Yes Soft to palpation Auscultation: normal bowel sounds Skin: General skin exam: normal color Neuro: General: gait normal Speech: normal speech Motor exam (neuro): 5/5 motor strength present throughout and Normal motor muscle tone present throughout Sensory Exam: normal sensation Extrem: General: normal to inspection Psych: Mental Status: mental status grossly normal Affect: normal affect Objective Data Vital Signs Vital Signs: Vital Signs - 24 hr 05/01/25 17:46 05/01/25 20:00 05/01/25 20:26 Temperature Pulse Rate 65 Respiratory Rate Blood Pressure 149/69 H Pulse Oximetry Oxygen Delivery Room Air 05/01/25 20:48 05/01/25 20:49 05/01/25 20:57 Temperature 97.7 F Pulse Rate 70 67 Respiratory Rate 20 Blood Pressure 123/46 L Pulse Oximetry 97 97 Oxygen Delivery Room Air 05/02/25 00:00 05/02/25 04:00 05/02/25 05:14 Temperature 98.0 F Pulse Rate 76 57 L 58 L Respiratory Rate 20 Blood Pressure 149/62 H Pulse Oximetry 100 Oxygen Delivery 05/02/25 08:00 05/02/25 10:18 05/02/25 12:00 Temperature Pulse Rate 62 71 Respiratory Rate Blood Pressure Pulse Oximetry Oxygen Delivery Room Air 05/02/25 13:53 05/02/25 17:09 Temperature 98.2 F Pulse Rate 60 Respiratory Rate 12 Blood Pressure 139/51 L 134/57 L Pulse Oximetry 97 Oxygen Delivery Intake/Output Intake/Output: Intake & Output 04/29/25 04/30/25 05/01/25 05/02/25 22:59 23:59 23:59 23:59 Intake Total 220 960 Balance 220 960 Meds/Results Medications: Active Medications Generic Name Dose Route Start Last Admin Trade Name Freq PRN Reason Stop Dose Admin Aspirin 81 mg 05/01/25 21:00 05/01/25 20:45 Aspirin 81 Mg Enteric Tablet PO 81 mg HS CORI Administration Bisacodyl 5 mg 05/01/25 17:15 Bisacodyl 5 Mg Tablet Ec PO DAILY PRN Constipation Ergocalciferol 1,250 mcg 05/07/25 09:00 Ergocalciferol (Vitamin D2) 1,250 Mcg (50,000 Units) Capsule PO WEEKLY CORI Heparin Sodium (Porcine) 5,000 units 05/01/25 21:00 05/02/25 10:08 Heparin Sodium 5,000 Units/Ml Vial SUB-Q 5,000 units Q12HR CORI Administration Hydralazine HCl 12.5 mg 05/01/25 18:00 05/02/25 17:08 Hydralazine 12.5 Mg Tablet PO 12.5 mg BID CORI Administration Levothyroxine Sodium 300 mcg 05/02/25 06:30 05/02/25 05:24 Levothyroxine Sodium 150 Mcg Tablet PO 300 mcg DAILY@0630 CORI Administration Losartan Potassium 50 mg 05/02/25 09:00 05/02/25 10:08 Losartan Potassium 50 Mg Tablet PO 50 mg DAILY CORI Administration Meclizine HCl 12.5 mg 05/01/25 17:18 Meclizine Hcl 12.5 Mg Tablet PO Q8H PRN Dizziness Metoprolol Succinate 75 mg 05/01/25 21:00 05/01/25 20:48 Metoprolol Succinate Ext Rel 25 Mg Tabcr PO 75 mg HS CORI Administration Naproxen 1,000 mg 05/01/25 17:21 Naproxen 500 Mg Tablet PO BIDWM PRN pain 1-3 Ondansetron HCl 4 mg 05/01/25 17:18 Ondansetron Hcl Odt 4 Mg Tablet PO Q8H PRN Nausea And Vomiting Quetiapine Fumarate 25 mg 05/01/25 18:00 05/01/25 20:44 Quetiapine Fumarate 25 Mg Tablet PO Not Given HS CORI Torsemide 20 mg 05/01/25 17:18 Torsemide 20 Mg Tablet PO DAILY PRN swelling Tramadol HCl 50 mg 05/01/25 17:18 05/02/25 14:52 Tramadol Hcl (*Crx) 50 Mg Tablet PO 50 mg Q8H PRN Administration Pain 4-6 Radiology Results: ITS Impressions Head CT 05/01/25 09:42 IMPRESSION: 1. No acute intracranial findings. Head/Neck CTA 05/01/25 09:53 IMPRESSION: 1. No evident atherosclerotic plaque with 0% stenosis of the right carotid bulb relative to normal distal artery lumen diameter (NASCET criteria). 2. Small amount of atherosclerotic plaque with 0% stenosis of the left carotid bulb relative to normal distal artery lumen diameter. 3. Nonhemodynamically significant atherosclerotic plaque along the bilateral vertebral arteries and at the bilateral carotid siphons. No evident cerebral arterial hemodynamically significant stenosis, aneurysm or thrombosis. Chest X-Ray 05/01/25 10:05 Impression: No acute cardiopulmonary abnormality. Brain MRI 05/02/25 16:30 IMPRESSION: 1. Encephalomalacia in the right thalamus consistent with sequela of prior intraparenchymal hemorrhage. No acute intracranial process. 2. Mild scattered periventricular predominant nonspecific cerebral white matter T2 hyperintensity consistent with chronic small vessel ischemic disease. Labs Labs: Laboratory Results - last 24 hr 05/02/25 04:52 WBC 5.0 RBC 3.33 L Hgb 8.7 L Hct 29.7 L MCV 89.2 MCH 26.1 MCHC 29.3 L RDW 12.4 Plt Count 275 MPV 9.3 Immature Gran % (Auto) 0.2 Neut % (Auto) 51.7 Lymph % (Auto) 34.7 [place] % (Auto) 8.6 H Eos % (Auto) 4.0 Baso % (Auto) 0.8 Lymph # (Auto) 1.74 [place] # (Auto) 0.4 Eos # (Auto) 0.2 Baso # (Auto) 0.0 Abs Immat Gran (auto) 0.01 Absolute Neuts (auto) 2.6 Absolute Nucleated RBC 0.000 Nucleated RBC % 0.0 Sodium 138 Potassium 4.1 Chloride 106 Carbon Dioxide 29 Anion Gap 3 L BUN 22 H Creatinine 0.85 Estim Creat Clear Calc 65 Estimated GFR > 60 Glucose 101 Calcium 8.7 Total Bilirubin 0.3 AST 19 ALT 12 Alkaline Phosphatase 73 Total Protein 6.1 L Albumin 3.4 L Hospitalist MIPS Advance Care Plan I have confirmed that the patient's Advanced Care Plan is present, code status is documented, or surrogate decision maker is listed in patient medical record.: Yes Medication Reconciliation I have utilized all available resources to obtain, update and review the patients current medications (includes all prescriptions, OTC, herbals, cannabis, and nutritional supplements).: Yes
--- NOTE | 2025-05-02 20:15 | PC.NURSE ---
Pt anxious and wishes to go home. Pt stated has hospital delirium when in the hospital and that it only gets worse the longer she stays here. Patient is alert and oriented at this time. Daughter Kristyn is at her bedside and is a RN and confirms that patients anxiety is bad and she does better when she is at home and does have hospital delirium and that she wants to go ahead and take her mom home. Spoke with Kay Sawant who stated that she is not able to discharge patient and that she will have to leave AMA. Patient and daughter decided for her to leave AMA at this time. Re explained medical reason for staying and reinforced stroke symptoms and what to watch out for and also informed to come back to ER if patient has any symptoms or does not feel well. Encouraged to follow up with primary Dr. as well. AMA form signed and patient. IV removed per MARLEN Banks
--- NOTE | 2025-05-03 07:30 | P.PNCROSS_ITS ---
Event Note Event Note Event Note: I was notified per nursing staff that the patient has signed out AMA. I sugges jesus that the daughter keep the patient in the hospital overnight to be evaluated by Neurology
--- NOTE | 2025-05-26 07:09 | PM.EVENT ---
Event Note Event Note Event Note: Final diagnosis: TIA Admitting diagnosis: TIA
== END 2025-05-02 20:20 | disposition home or self-care (01) ==
LOC: ANHED 10:34 → ANH2MED 05-02 07:54
PROVIDERS: Admitting Provider Student in an Organized Health Care Education/Training Program; Emergency Provider Emergency Medicine; PCP Family Medicine; Visit Provider Student in an Organized Health Care Education/Training Program
DX: G93.89 Other specified disorders of brain (principal); R94.02 Abnormal brain scan; Z53.29 Procedure and treatment not carried out because of patient's decision for other reasons; E03.9 Hypothyroidism, unspecified; I25.10 Atherosclerotic heart disease of native coronary artery without angina pectoris; Z95.1 Presence of aortocoronary bypass graft; E78.5 Hyperlipidemia, unspecified; I10 Essential (primary) hypertension; Z85.528 Personal history of other malignant neoplasm of kidney; R73.03 Prediabetes; I69.398 Other sequelae of cerebral infarction; H02.402 Unspecified ptosis of left eyelid; Z86.718 Personal history of other venous thrombosis and embolism; F41.9 Anxiety disorder, unspecified; M16.0 Bilateral primary osteoarthritis of hip
CPT/HCPCS: 36415; 70450; 70496; 70498; 70551; 71045; 80053; 82948; 84484; 85025; 85610; 85730; 93005; 96375; 99285; A9270; C8929; G0378; J1644; Q9957; Q9967